=== PATIENT | female | born 1970 | race Caucasian/White ===

== ENCOUNTER 2018-08-28 12:50 | Emergency (ER) | payer BC, SELFPAY ==
[2018-08-28 13:02] VITALS: BP 126/71; PULSE 94; RESP 20; TEMP 36.9; O2SAT 99
[2018-08-28 13:39] LABS: Prothrombin Time 11.3 SECONDS (10.1-12.7)
[2018-08-28 13:42] LABS: PTT Partial Thromboplastin Tim 24 SECONDS (26.4-36.2)
[2018-08-28 13:43] LABS: Add Manual Diff / Slide Review NO; Basophils Absolute Auto 0 /uL (0-100); Basophils Percent Auto 0.5 % (0-2); Eosinophils Absolute Auto 300 /uL (0-450); Hematocrit 41.8 % (36-46); Hemoglobin 14.3 g/dL (12.0-16.0); Lymphocytes Absolute Auto 1500 /uL (1100-4500); Lymphocytes Percent Auto 18.3 % (25-40); Mean Corpuscular HGB Conc 34.2 % (30-36); Mean Corpuscular Hemoglobin 30.9 PG (26-34); Mean Corpuscular Volume 90.3 fL (80-100); Monocytes Absolute Auto 600 /uL (0-900); Monocytes Percent Auto 7.2 % (3-14); Neutrophils Absolute Auto 5700 /uL (1500-7000); Platelet Count 257 X10^3/uL (150-400); Red Blood Cell Count 4.63 X10^6/uL (4.0-5.2); Red Cell Distribution Width 12.9 % (11.6-14.8); White Blood Cell Count 8.2 X10^3/uL (4.5-11.0)
[2018-08-28 13:46] LABS: Alanine Aminotransferase 9 IU/L (9-52); Albumin 4.2 g/dL (3.5-5.0); Albumin Globulin Ratio 1.2 (1.0-2.8); Alkaline Phosphatase 84 U/L (38-126); Aspartate Aminotransferase 17 IU/L (14-36); BUN Creatinine Ratio 25.7 (6-22); Bilirubin Total 0.6 mg/dL (0.2-1.3); Blood Urea Nitrogen 18 mg/dL (7-17); Calcium 9.8 mg/dL (8.4-10.2); Carbon Dioxide 24 mmol/L (22-32); Chloride 108 mmol/L (98-107); Estimated Glomerular Filt Rate > 60.0 mL/min (>60); Globulin 3.5 g/dL (1.7-4.1); Glucose 83 mg/dL (70-100); HEMOLYSIS < 15 (0-50); Lipase 51 U/L (23-300); Potassium 4.5 mmol/L (3.4-5.1); Sodium 141 mmol/L (137-145); Total Protein 7.7 g/dL (6.3-8.2)
[2018-08-28 13:56] LABS: RBC Urine None Seen (0-5/HPF)
[2018-08-28 14:20] LABS: Bacteria Urine Moderate (10-30); Culture Indicated Urine Cult Not Indicated; Hyaline Casts Urine 0-1/LPF; Mucus Urine 1+ (Negative); Squamous Epithelial Cell Urine 5-10 /HPF (0-5/HPF); WBC Urine 1-5/HPF (0-5/HPF)
--- NOTE | 2018-08-28 15:57 | ED_ITS ---
HPI - Abdominal Pain <Jahaira Langford PA-C - Last Filed: 08/28/18 19:17> General Chief Complaint: Abdominal Pain Stated Complaint: ABD PAIN LEFT SIDE Time Seen by Provider: 08/28/18 15:55 Source: patient Mode of arrival: ambulatory Limitations: no limitations History of Present Illness HPI narrative: This 47-year-old female comes in due to persistent left pelvis area pain. She states that this started 1 week ago, with brief stabbing sensations in the left side of her pelvis. She states on Monday, this was severe and constant to the point that she was in the position crying. She states that the next day it was not much better but she was able to move and function normally. She states that pain is actually somewhat more tolerable in the last 2 days, but still bad enough that she thought she needed to be evaluated since not resolving. She states that she has had bloating and decreased appetite with this, no nausea or vomiting. She is belching and passing flatus. She states pain is constant without exacerbating or alleviating features nor any radiation. She denies any urinary symptoms or hematuria. She states that she has had watery diarrhea without blood a few times daily that started a couple of days prior to this and has not gotten worse. She has not had any fever. She denies any chest pain or dyspnea. She has not taken any recent antibiotics. She has taken ibuprofen for pain which helps somewhat. She states she has had frequent kidney stones but not feel at all like a stone. She also states that she has a history of complex ovarian cysts, 2 on the right and 1 on the left but these are not usually painful. 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 She states this is atypical pain for her, no recent trauma, no travel or known exposures Related Data Home Medications Medication Instructions Recorded Confirmed ibuprofen 1 dose PO PRN PRN #0 12/31/09 08/28/18 albuterol sulfate 1 inh INHALATION PRN PRN 08/28/18 08/28/18 Allergies Allergy/AdvReac Type Severity Reaction Status Date / Time PENCILLIN Allergy Unknown Uncoded 08/02/17 13:05 Review of Systems <Jahaira Langford PA-C - Last Filed: 08/28/18 19:17> Review of Systems ROS Unobtainable: All systems reviewed & are unremarkable except as noted in HPI and below PFSH <Jahaira Langford PA-C - Last Filed: 08/28/18 19:17> Medical History Status post tubal ligation (Resolved) Kidney stones (Resolved) Asthma (Chronic) Knee osteoarthritis (Chronic) Ovarian cyst (Chronic) Surgical History Status post cholecystectomy (Resolved) Status post arthroscopic knee surgery (Resolved) Status post (Resolved) Social History Smoking Status: Never smoker Social History Smoking Status: Never smoker Exam <Jahaira Langford PA-C - Last Filed: 08/28/18 19:17> Initial Vital Signs Initial Vital Signs: Vital Signs Temperature 98.4 F 08/28/18 13:02 Pulse Rate 94 H 08/28/18 13:02 Respiratory Rate 20 08/28/18 13:02 Blood Pressure 126/71 08/28/18 13:02 Pulse Oximetry 99 08/28/18 13:02 GENERAL APPEARANCE: Patient sitting comfortably, in no distress. HEENT: PERRL, EOMI, no scleral icterus NECK: Supple LUNGS: Clear to auscultation bilaterally. HEART: Rate and rhythm regular, normal S1 and S2, no S3 or S4. ABDOMEN: Soft, nondistended, bowel sounds present x 4 quadrants, no masses palpable, no hepatosplenomegaly. tender over the left upper quadrant without guarding or rebound. more tenderness over the left lower quadrant, left and central pelvis. She guards the central suprapubic area. No rebound. no right- sided tenderness to palpation, no CVAT EXTREMITIES: No edema, no cyanosis DERMATOLOGIC: No jaundice or exanthem NEUROLOGIC: Alert and oriented with normal speech and coordination <Jeffry Carroll DO - Last Filed: 08/28/18 19:18> Initial Vital Signs Initial Vital Signs: Vital Signs Temperature 98.4 F 08/28/18 13:02 Pulse Rate 94 H 08/28/18 13:02 Respiratory Rate 20 08/28/18 13:02 Blood Pressure 126/71 08/28/18 13:02 Pulse Oximetry 99 08/28/18 13:02 Course <Jahaira Langford PA-C - Last Filed: 08/28/18 19:17> Additional Information: The patient is feeling somewhat improved at the time discharge. Pain is not resolved. She does not feel like she wants or needs additional pain medication and wants to continue rnnd-olc-sethxac ibuprofen. She was given a copy of her ultrasound disc and will follow up with her OBGYN this week. Agreed to return if acutely worsening symptoms or new symptoms such as fever or vomiting. Orders Ordered: ED Orders 08/28/18 13:20 Complete Blood Count AUTO DIFF Stat Comprehensive Metabolic Panel Stat Lipase Stat Partial Thromboplastin Time Stat Prothrombin Time INR Stat 08/28/18 13:48 Urine Microscopic Stat 08/28/18 16:13 CT abdomen pelvis w con Stat Discontinued Medications Sodium Chloride (Normal Saline 0.9%) 1,000 mls @ 1,000 mls/hr IV BOLUS ONE Stop: 08/28/18 17:12 Last Infusion: 08/28/18 18:23 Dose: 0 mls/hr Admin: 08/28/18 16:29 Dose: 1,000 mls/hr Ketorolac Tromethamine (Toradol) 30 mg IV NOW ONE Stop: 08/28/18 16:14 Last Admin: 08/28/18 16:29 Dose: 30 mg Vital Signs - 8 hr 08/28/18 13:02 08/28/18 18:00 Temperature 98.4 F Pulse Rate 94 H 79 Respiratory Rate 20 Blood Pressure 126/71 Blood Pressure [Left Arm] 122/70 Pulse Oximetry 99 92 <Jeffry Carroll DO - Last Filed: 08/28/18 19:18> Orders Ordered: ED Orders 08/28/18 13:20 Complete Blood Count AUTO DIFF Stat Comprehensive Metabolic Panel Stat Lipase Stat Partial Thromboplastin Time Stat Prothrombin Time INR Stat 08/28/18 13:48 Urine Microscopic Stat 08/28/18 16:13 CT abdomen pelvis w con Stat Discontinued Medications Sodium Chloride (Normal Saline 0.9%) 1,000 mls @ 1,000 mls/hr IV BOLUS ONE Stop: 08/28/18 17:12 Last Infusion: 08/28/18 18:23 Dose: 0 mls/hr Admin: 08/28/18 16:29 Dose: 1,000 mls/hr Ketorolac Tromethamine (Toradol) 30 mg IV NOW ONE Stop: 08/28/18 16:14 Last Admin: 08/28/18 16:29 Dose: 30 mg Vital Signs - 8 hr 08/28/18 13:02 08/28/18 18:00 Temperature 98.4 F Pulse Rate 94 H 79 Respiratory Rate 20 Blood Pressure 126/71 Blood Pressure [Left Arm] 122/70 Pulse Oximetry 99 92 MDM - Abdominal Pain <Jahaira Langford PA-C - Last Filed: 08/28/18 19:17> Lab Data Attestation: I reviewed the patient's lab results. Result diagrams: 08/28/18 13:20 08/28/18 13:20 Lab Results 08/28/18 08/28/18 08/28/18 Range/Units 13:20 13:20 13:20 WBC 8.2 (4.5-11.0) X10^3/uL RBC 4.63 (4.0-5.2) X10^6/uL Hgb 14.3 (12.0-16.0) g/dL Hct 41.8 (36-46) % MCV 90.3 (80-100) fL MCH 30.9 (26-34) PG MCHC 34.2 (30-36) % RDW 12.9 (11.6-14.8) % Plt Count 257 (150-400) X10^3/uL Neut % (Auto) 70.0 (50-75) % Lymph % (Auto) 18.3 L (25-40) % Rooks % (Auto) 7.2 (3-14) % Eos % (Auto) 4.0 (2-4) % Baso % (Auto) 0.5 (0-2) % Neut # (Auto) 5700 (8293-7724) /uL Lymph # (Auto) 1500 (8040-8551) /uL Rooks # (Auto) 600 (0-900) /uL Eos # (Auto) 300 (0-450) /uL Baso # (Auto) 0 (0-100) /uL PT 11.3 (10.1-12.7) SECONDS INR 1.0 (0.9-1.3) APTT 24 L (26.4-36.2) SECONDS Sodium 141 (137-145) mmol/L Potassium 4.5 (3.4-5.1) mmol/L Chloride 108 H (98-107) mmol/L Carbon Dioxide 24 (22-32) mmol/L BUN 18 H (7-17) mg/dL Creatinine 0.70 (0.52-1.04) mg/dL Estimated GFR > 60.0 (>60) mL/min BUN/Creatinine Ratio 25.7 H (6-22) Glucose 83 (70-100) mg/dL Calcium 9.8 (8.4-10.2) mg/dL Total Bilirubin 0.6 (0.2-1.3) mg/dL AST 17 (14-36) IU/L ALT 9 (9-52) IU/L Alkaline Phosphatase 84 (38-126) U/L Total Protein 7.7 (6.3-8.2) g/dL Albumin 4.2 (3.5-5.0) g/dL Globulin 3.5 (1.7-4.1) g/dL Albumin/Globulin Ratio 1.2 (1.0-2.8) Lipase 51 (23-300) U/L Urine RBC (0-5/HPF) Urine WBC (0-5/HPF) Ur Squamous Epith Cells (0-5/HPF) Urine Bacteria (None) Hyaline Casts (None) Urine Mucus (Negative) Ur Culture Indicated? 08/28/18 Range/Units 13:48 WBC (4.5-11.0) X10^3/uL RBC (4.0-5.2) X10^6/uL Hgb (12.0-16.0) g/dL Hct (36-46) % MCV (80-100) fL MCH (26-34) PG MCHC (30-36) % RDW (11.6-14.8) % Plt Count (150-400) X10^3/uL Neut % (Auto) (50-75) % Lymph % (Auto) (25-40) % Rooks % (Auto) (3-14) % Eos % (Auto) (2-4) % Baso % (Auto) (0-2) % Neut # (Auto) (1739-8538) /uL Lymph # (Auto) (4360-4644) /uL Rooks # (Auto) (0-900) /uL Eos # (Auto) (0-450) /uL Baso # (Auto) (0-100) /uL PT (10.1-12.7) SECONDS INR (0.9-1.3) APTT (26.4-36.2) SECONDS Sodium (137-145) mmol/L Potassium (3.4-5.1) mmol/L Chloride (98-107) mmol/L Carbon Dioxide (22-32) mmol/L BUN (7-17) mg/dL Creatinine (0.52-1.04) mg/dL Estimated GFR (>60) mL/min BUN/Creatinine Ratio (6-22) Glucose (70-100) mg/dL Calcium (8.4-10.2) mg/dL Total Bilirubin (0.2-1.3) mg/dL AST (14-36) IU/L ALT (9-52) IU/L Alkaline Phosphatase (38-126) U/L Total Protein (6.3-8.2) g/dL Albumin (3.5-5.0) g/dL Globulin (1.7-4.1) g/dL Albumin/Globulin Ratio (1.0-2.8) Lipase (23-300) U/L Urine RBC None seen (0-5/HPF) Urine WBC 1-5/hpf (0-5/HPF) Ur Squamous Epith Cells 5-10 /hpf H (0-5/HPF) Urine Bacteria Moderate (10-30) H (None) Hyaline Casts 0-1/lpf (None) Urine Mucus 1+ H (Negative) Ur Culture Indicated? Cult not indicated Point of care testing: Point of Care Testing Test Results Negative Urine Dip Bedside Urine Glucose Negative Bedside Urine Bilirubin + 1 Bedside Urine Ketone - Negative Urine Specific [place] 1.030 Bedside Urine Occult Blood - Negative Bedside Urine pH 5.5 Bedside Urine Protein - Negative Bedside Urine Urobilinogen - Negative Bedside Urine Nitrite - Negative Bedside Urine Leukocytes + 70 Esterase Imaging Data US - abdomen: Radiologist's impression: [address] [address] [address] Scan Report Signed Patient: Aggie Tavarez LMR#: [id number] : 1970Acct:[id number] Age/Sex: 47 / FDate of Service: 08/28/18 Loc: ED Accession Number: [id number] Procedure: CT abdomen pelvis w con Ordering Provider: Jahaira Langford P.A-C PROCEDURE: CT ABDOMEN PELVIS W CON INDICATIONS: R. side pain, increased R. pelvis but also R. UQ TECHNIQUE: After the administration of intravenous contrast, 5 mm thick sections acquired from the diaphragm to the symphysis. 5 mm coronal and sagittal reformats were acquired. For radiation dose reduction, the following was used: automated exposure control, adjustment of mA and/or kV according to patient size. COMPARISON: None. FINDINGS: Image quality: Excellent. ABDOMEN: Lung bases: Lung bases are clear. Heart size is normal. Solid organs: Liver is normal in size and enhancement. Gallbladder is unremarkable. Biliary system is non dilated. Pancreas enhances normally. Spleen is normal in size and enhancement. No adrenal nodules. Kidneys demonstrate normal size and enhancement, without hydronephrosis. Peritoneum and bowel: Bowel loops demonstrate normal wall thickness and caliber. The appendix is thin walled and gas filled. An appendicolith is present at the distal aspect of the nondilated appendix. There are scattered sigmoid diverticula. No evidence for diverticulitis. No free fluid or air. Nodes and vessels: No retroperitoneal or mesenteric adenopathy by size criteria. Aorta and inferior vena cava are normal in size. Miscellaneous: No ventral hernias. PELVIS: Genitourinary: Bladder wall thickness is normal. There is a low density 3.2 cm right ovarian cyst. The uterus is grossly unremarkable. There is a crenulated- appearing left ovarian cyst which may represent a recently ruptured cyst (series 2, image 70). Miscellaneous: No inguinal hernias or adenopathy. Bones: No suspicious bony lesions. Fixation hardware is noted at the right iliac to prior trauma. No vertebral body compression fractures. IMPRESSION: 1. No acute intra-abdominal findings. Normal appendix with appendicolith at the tip. 2. Crenulated appearing left ovarian cyst which may represent a recent ruptured ovarian follicle. Please correlate clinically, it is unclear whether this may correspond with the patient's elbow pain. Dictated by: Ami Alvarez M.D. on 08/28/2018 at 17:05 Approved by: Ami Alvarez M.D. on 08/28/2018 at 17:09 <Jeffry Lanker, DO - Last Filed: 08/28/18 19:18> Lab Data Lab Results 08/28/18 08/28/18 08/28/18 Range/Units 13:20 13:20 13:20 WBC 8.2 (4.5-11.0) X10^3/uL RBC 4.63 (4.0-5.2) X10^6/uL Hgb 14.3 (12.0-16.0) g/dL Hct 41.8 (36-46) % MCV 90.3 (80-100) fL MCH 30.9 (26-34) PG MCHC 34.2 (30-36) % RDW 12.9 (11.6-14.8) % Plt Count 257 (150-400) X10^3/uL Neut % (Auto) 70.0 (50-75) % Lymph % (Auto) 18.3 L (25-40) % Rooks % (Auto) 7.2 (3-14) % Eos % (Auto) 4.0 (2-4) % Baso % (Auto) 0.5 (0-2) % Neut # (Auto) 5700 (9780-8153) /uL Lymph # (Auto) 1500 (3060-8000) /uL Rooks # (Auto) 600 (0-900) /uL Eos # (Auto) 300 (0-450) /uL Baso # (Auto) 0 (0-100) /uL PT 11.3 (10.1-12.7) SECONDS INR 1.0 (0.9-1.3) APTT 24 L (26.4-36.2) SECONDS Sodium 141 (137-145) mmol/L Potassium 4.5 (3.4-5.1) mmol/L Chloride 108 H (98-107) mmol/L Carbon Dioxide 24 (22-32) mmol/L BUN 18 H (7-17) mg/dL Creatinine 0.70 (0.52-1.04) mg/dL Estimated GFR > 60.0 (>60) mL/min BUN/Creatinine Ratio 25.7 H (6-22) Glucose 83 (70-100) mg/dL Calcium 9.8 (8.4-10.2) mg/dL Total Bilirubin 0.6 (0.2-1.3) mg/dL AST 17 (14-36) IU/L ALT 9 (9-52) IU/L Alkaline Phosphatase 84 (38-126) U/L Total Protein 7.7 (6.3-8.2) g/dL Albumin 4.2 (3.5-5.0) g/dL Globulin 3.5 (1.7-4.1) g/dL Albumin/Globulin Ratio 1.2 (1.0-2.8) Lipase 51 (23-300) U/L Urine RBC (0-5/HPF) Urine WBC (0-5/HPF) Ur Squamous Epith Cells (0-5/HPF) Urine Bacteria (None) Hyaline Casts (None) Urine Mucus (Negative) Ur Culture Indicated? 08/28/18 Range/Units 13:48 WBC (4.5-11.0) X10^3/uL RBC (4.0-5.2) X10^6/uL Hgb (12.0-16.0) g/dL Hct (36-46) % MCV (80-100) fL MCH (26-34) PG MCHC (30-36) % RDW (11.6-14.8) % Plt Count (150-400) X10^3/uL Neut % (Auto) (50-75) % Lymph % (Auto) (25-40) % Rooks % (Auto) (3-14) % Eos % (Auto) (2-4) % Baso % (Auto) (0-2) % Neut # (Auto) (2510-6886) /uL Lymph # (Auto) (9200-5291) /uL Rooks # (Auto) (0-900) /uL Eos # (Auto) (0-450) /uL Baso # (Auto) (0-100) /uL PT (10.1-12.7) SECONDS INR (0.9-1.3) APTT (26.4-36.2) SECONDS Sodium (137-145) mmol/L Potassium (3.4-5.1) mmol/L Chloride (98-107) mmol/L Carbon Dioxide (22-32) mmol/L BUN (7-17) mg/dL Creatinine (0.52-1.04) mg/dL Estimated GFR (>60) mL/min BUN/Creatinine Ratio (6-22) Glucose (70-100) mg/dL Calcium (8.4-10.2) mg/dL Total Bilirubin (0.2-1.3) mg/dL AST (14-36) IU/L ALT (9-52) IU/L Alkaline Phosphatase (38-126) U/L Total Protein (6.3-8.2) g/dL Albumin (3.5-5.0) g/dL Globulin (1.7-4.1) g/dL Albumin/Globulin Ratio (1.0-2.8) Lipase (23-300) U/L Urine RBC None seen (0-5/HPF) Urine WBC 1-5/hpf (0-5/HPF) Ur Squamous Epith Cells 5-10 /hpf H (0-5/HPF) Urine Bacteria Moderate (10-30) H (None) Hyaline Casts 0-1/lpf (None) Urine Mucus 1+ H (Negative) Ur Culture Indicated? Cult not indicated Point of care testing: Point of Care Testing Test Results Negative Urine Dip Bedside Urine Glucose Negative Bedside Urine Bilirubin + 1 Bedside Urine Ketone - Negative Urine Specific [place] 1.030 Bedside Urine Occult Blood - Negative Bedside Urine pH 5.5 Bedside Urine Protein - Negative Bedside Urine Urobilinogen - Negative Bedside Urine Nitrite - Negative Bedside Urine Leukocytes + 70 Esterase Discharge Plan Departure Patient Disposition: Home Clinical Impression: Left sided abdominal pain Ovarian cyst Qualifiers: Laterality: bilateral Qualified Code(s): N83.201 - Unspecified ovarian cyst, right side Discharge Date/Time: 08/28/18 18:23 Interventions: ED Discharge Assessment Last Done: 08/28/18 18:23 Instructions: DI for Abdominal Pain-Adult Activity Restrictions/Additional Instructions: On your lab testing today, there was no clear cause for your pain. your scan did show ovarian cysts on both sides, however the 1 on the left was more unusual in appearance and looks like it may have ruptured a or be rupturing, which may explain the change in your pain. Please return if you have any acutely worsening symptoms as we talked about, or if you have new symptoms such as vomiting or fever. 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 She may want to repeat the ultrasound. Please continue ibuprofen for pain 800 mg every 8 hours (the injection we gave you here may last through the evening). You can add Tylenol in addition to that if needed. Prescriptions: No Action ibuprofen 200 mg Tablet 1 dose PO PRN PRN (Reason: pain) Qty: 0 RF: 0 albuterol sulfate 90 mcg/actuation Aerosol Powdr Breath Activated 1 inh INHALATION PRN PRN (Reason: Shortness Of Breath) RF: 0 Referrals: [facility], [facility] [Other] Sneha Ortega DO [Non-Staff] - <Jeffry Carroll DO - Last Filed: 08/28/18 19:18> Cosign ED Attending Peggyature Attestation: I was available for consultation during this patient's emergency department encounter
--- NOTE | 2018-08-28 16:13 | DI.CT.S_ITS ---
PROCEDURE: CT ABDOMEN PELVIS W CON INDICATIONS: R. side pain, increased R. pelvis but also R. UQ TECHNIQUE: After the administration of intravenous contrast, 5 mm thick sections acquired from the diaphragm to the symphysis. 5 mm coronal and sagittal reformats were acquired. For radiation dose reduction, the following was used: automated exposure control, adjustment of mA and/or kV according to patient size. COMPARISON: None. FINDINGS: Image quality: Excellent. ABDOMEN: Lung bases: Lung bases are clear. Heart size is normal. Solid organs: Liver is normal in size and enhancement. Gallbladder is unremarkable. Biliary system is non dilated. Pancreas enhances normally. Spleen is normal in size and enhancement. No adrenal nodules. Kidneys demonstrate normal size and enhancement, without hydronephrosis. Peritoneum and bowel: Bowel loops demonstrate normal wall thickness and caliber. The appendix is thin walled and gas filled. An appendicolith is present at the distal aspect of the nondilated appendix. There are scattered sigmoid diverticula. No evidence for diverticulitis. No free fluid or air. Nodes and vessels: No retroperitoneal or mesenteric adenopathy by size criteria. Aorta and inferior vena cava are normal in size. Miscellaneous: No ventral hernias. PELVIS: Genitourinary: Bladder wall thickness is normal. There is a low density 3.2 cm right ovarian cyst. The uterus is grossly unremarkable. There is a crenulated-appearing left ovarian cyst which may represent a recently ruptured cyst (series 2, image 70). Miscellaneous: No inguinal hernias or adenopathy. Bones: No suspicious bony lesions. Fixation hardware is noted at the right iliac to prior trauma. No vertebral body compression fractures. IMPRESSION: 1. No acute intra-abdominal findings. Normal appendix with appendicolith at the tip. 2. Crenulated appearing left ovarian cyst which may represent a recent ruptured ovarian follicle. Please correlate clinically, it is unclear whether this may correspond with the patient's elbow pain. Dictated by: Ami Alvarez M.D. on 08/28/2018 at 17:05 Approved by: Ami Alvarez M.D. on 08/28/2018 at 17:09
[2018-08-28] MEDS: SODIUM CHLORIDE 0.9% 1,000 ML 1000 ML IV (16:29)
[2018-08-28] MEDS: KETOROLAC 60 MG/2 ML VIAL 30 MG IV (16:29)
[2018-08-28 18:00] VITALS: BP 122/70; PULSE 79; O2SAT 92
== END 2018-08-28 18:23 | disposition home or self-care (01) ==
PROVIDERS: Emergency Medicine; Emergency Provider Internal Medicine
DX: N83.201 Unspecified ovarian cyst, right side (principal); R10.11 Right upper quadrant pain
CPT/HCPCS: 36415; 74177; 80053; 81003; 81015; 81025; 83690; 85025; 85610; 85730; 96361; 96374; 99283; 99284; J1885; Q9967

== ENCOUNTER 2019-02-06 17:15 | Observation (INO) | payer BC, SELFPAY ==
[2019-02-06 17:17] VITALS: BP 144/74; PULSE 106; RESP 20; TEMP 36.4; O2SAT 99
--- NOTE | 2019-02-06 17:24 | DI.US.S_ITS ---
PROCEDURE: US PERIPH VENOUS LOW EXTREM LT INDICATIONS: LLE PAIN/SWELLING, POSTOP TECHNIQUE: Real-time imaging, as well as color and pulse Doppler interrogation, were performed of the lower extremity deep veins from the inguinal ligament to the popliteal fossa. COMPARISON: None. FINDINGS: There is filling defect within mid to distal left superficial femoral vein and popliteal vein with absence of flow. Poor compressibility is also noted. The common femoral, and proximal femoral veins are normally compressible, and free of intraluminal thrombus. Color and pulse Doppler demonstrate normal phasic intraluminal flow. There is normal augmentation response to distal compression maneuver. IMPRESSION: 1. Finding is suggestive of occlusive venous thrombosis involving mid to distal left superficial femoral vein and popliteal vein. Dictated by: Dony Stapleton M.D. on 02/06/2019 at 18:23 Approved by: Dony Stapleton M.D. on 02/06/2019 at 18:24
--- NOTE | 2019-02-06 17:25 | DI.RAD.S_ITS ---
PROCEDURE: XR CHEST 2V INDICATIONS: shortness of breath TECHNIQUE: 2 views of the chest were acquired. COMPARISON: None. FINDINGS: Surgical changes and devices: None. Lungs and pleura: Lungs are clear. No pleural effusions or pneumothorax. Mediastinum: Mediastinal contours are normal. Heart size is normal. Bones and chest wall: No suspicious bony abnormalities. Soft tissues appear unremarkable. IMPRESSION: No acute cardiopulmonary pathology. Dictated by: Dony Stapleton M.D. on 02/06/2019 at 18:05 Approved by: Dony Stapleton M.D. on 02/06/2019 at 18:05
[2019-02-06 18:11] LABS: Add Manual Diff / Slide Review NO; Basophils Absolute Auto 100 /uL (0-100); Basophils Percent Auto 0.7 % (0-2); Eosinophils Absolute Auto 700 /uL (0-450); Eosinophils Percent Auto 6.7 % (2-4); Hematocrit 38.7 % (36-46); Hemoglobin 13.4 g/dL (12.0-16.0); Lymphocytes Absolute Auto 1900 /uL (1100-4500); Lymphocytes Percent Auto 18.8 % (25-40); Mean Corpuscular HGB Conc 34.7 % (30-36); Mean Corpuscular Hemoglobin 31.1 PG (26-34); Mean Corpuscular Volume 89.6 fL (80-100); Monocytes Absolute Auto 900 /uL (0-900); Monocytes Percent Auto 9.1 % (3-14); Neutrophils Absolute Auto 6600 /uL (1500-7000); Neutrophils Percent Auto 64.7 % (50-75); Platelet Count 253 X10^3/uL (150-400); Red Blood Cell Count 4.32 X10^6/uL (4.0-5.2); Red Cell Distribution Width 13.4 % (11.6-14.8); White Blood Cell Count 10.2 X10^3/uL (4.5-11.0)
--- NOTE | 2019-02-06 18:15 | DI.CT.S_ITS ---
PROCEDURE: CT ANGIO CHEST PE PROTOCOL INDICATIONS: SOB, tachycardia, large DVT found today TECHNIQUE: After the administration of intravenous contrast, 2 mm thick sections acquired from the pulmonary apices to the posterior costophrenic angles. 3-dimensional maximum intensity projection (MIP) coronal and sagittal reformats were then acquired through the thorax. For radiation dose reduction, the following was used: automated exposure control, adjustment of mA and/or kV according to patient size. COMPARISON: None. FINDINGS: Image quality: Excellent. Pulmonary arteries: Pulmonary artery is mildly prominent in size and measures up to 2.4 cm in diameter. Filling defect is seen in the distal right main pulmonary artery extending into right upper and lower lobe pulmonary artery branches as well as right middle lobe pulmonary artery branches. There are also smaller filling defects seen in distal left main pulmonary artery extending to left upper and lower lobe pulmonary artery branches. The finding is consistent with bilateral pulmonary emboli. Lungs and pleura: Lungs are clear. No pleural effusions or pneumothorax. Central and peripheral airways are patent. Mediastinum: Heart size is normal, without pericardial effusion. No mediastinal or hilar adenopathy. Thoracic aorta is normal in caliber and enhancement. Esophagus is normal in caliber, without hiatal hernia. Bones and chest wall: No suspicious bony lesions. Ribs and thoracic spine appear intact throughout. Thyroid gland is within normal limits. No axillary or supraclavicular adenopathy. Abdomen: Visualized upper abdominal solid organs appear normal in the early arterial phase of enhancement. IMPRESSION: 1. Fairly extensive bilateral pulmonary emboli as described above. 2. No pleural effusion or pneumothorax. Airway is patent. 3. Cardiac size is normal, no pericardial effusion. No mediastinal or hilar lymphadenopathy. Dictated by: Dony Stapleton M.D. on 02/06/2019 at 19:06 Approved by: Dony Stapleton M.D. on 02/06/2019 at 19:14
[2019-02-06 18:21] LABS: Alanine Aminotransferase 17 IU/L (9-52); Albumin 4.1 g/dL (3.5-5.0); Albumin Globulin Ratio 1.1 (1.0-2.8); Alkaline Phosphatase 108 U/L (38-126); Aspartate Aminotransferase 23 IU/L (14-36); BUN Creatinine Ratio 31.4 (6-22); Bilirubin Total 0.6 mg/dL (0.2-1.3); Blood Urea Nitrogen 22 mg/dL (7-17); Calcium 9.6 mg/dL (8.4-10.2); Carbon Dioxide 25 mmol/L (22-32); Chloride 107 mmol/L (98-107); Estimated Glomerular Filt Rate > 60.0 mL/min (>60); Globulin 3.7 g/dL (1.7-4.1); Glucose 95 mg/dL (70-100); HEMOLYSIS < 15 (0-50); Potassium 4.5 mmol/L (3.4-5.1); Sodium 139 mmol/L (137-145); Total Protein 7.8 g/dL (6.3-8.2)
[2019-02-06] MEDS: HEPARIN 5,000 UNIT/ML VIAL 7500 UNIT IV (18:34)
[2019-02-06 18:45] LABS: D Dimer 2502 ng/mL (<230)
[2019-02-06 18:57] VITALS: BP 147/76; PULSE 98; RESP 16; O2SAT 99
--- NOTE | 2019-02-06 18:58 | PC.NURSE ---
Pt arrived to ED with complaints of LLE pain and swelling. redness, warm to touch in some areas and ache behind the knee. reports she had recent carpal tunnel surgery. also was exiting her truck and got her heel caught and having pain to the L calf. IV placed and labs sent. US in room and confirmed DVT. Pt given heparin per order. resting in bed and awaiting chest CT.
--- NOTE | 2019-02-06 18:58 | ED.SOB ---
HPI - SOB/Dyspnea General Chief Complaint: Shortness of Breath/Dyspnea Stated Complaint: difficulty breathing, red swollen calf Time Seen by Provider: 02/06/19 18:01 Source: patient Mode of arrival: Ambulatory Limitations: no limitations History of Present Illness HPI Narrative: 48F non smoker with history of kidney stones presents with multiple family members in the chief complaint of pain and swelling in her left calf and thigh over the past week or 2 and now some shortness of breath and unexplained fatigue. She denies any injury or history of the same. She denies any redness or fever. She has had 2 surgeries in the past couple months including bilateral carpal tunnel surgeries. She denies any recent travel, history of blood clot but is on exhaustion assessed urgent for the treatment of a right-sided ovarian cyst. She becomes increasingly short of breath with exertion and this improves with rest. She has had increased cough, thought it was due to her asthma it but does state on occasion there might be some blood tinge to it. MD Complaint: shortness of breath and cough Onset (ago): day(s) Severity: mild Known history of: asthma Associated symptoms: cough, wheezing and lower extremity pain Treatment prior to arrival: none Related Data Home oxygen amount: none Home Medications Medication Instructions Recorded Confirmed albuterol sulfate 1 inh INHALATION PRN PRN 08/28/18 02/06/19 fluticasone propionate 50 1 spray NASAL DAILY 09/24/18 02/06/19 mcg/actuation nasal spray,suspension ibuprofen 200 mg tablet 800 mg PO BID PRN #0 tab 12/28/18 02/06/19 Previous Rx's Medication Instructions Recorded levonorgestrel 0.15 mg-ethinyl 1 tab PO DAILY #91 each 12/28/18 estradiol 30 mcg tablets,3 mos pack(91) Allergies Allergy/AdvReac Type Severity Reaction Status Date / Time Penicillins Allergy Unknown Verified 02/06/19 18:17 Review of Systems Constitutional Constitutional: Denies chills, Denies fatigue, Denies fever(s), Denies frequent falls, Denies lethargy and Denies weakness Eyes Eyes: Denies change in vision, Denies eye discharge, Denies irritation and Denies loss of vision ENT Ears, Nose, Mouth, and Throat: Denies change in voice, Denies dizziness, Denies neck pain, Denies sore throat and Denies throat swelling Cardiovascular Cardiovascular: Denies chest pain, Denies irregular heart rhythm, Denies lightheadedness, Denies palpitations, Reports dyspnea, Reports dyspnea on exertion and Denies orthopnea Respiratory Respiratory: Reports cough, Reports dyspnea, Reports dyspnea on exertion and Reports wheezing Gastrointestinal Gastrointestinal: Denies abdominal pain, Denies change in bowel habits, Denies diarrhea, Denies nausea and Denies vomiting Genitourinary Genitourinary: Denies hematuria, Denies flank pain, Denies urinary incontinence and Denies urinary urgency Musculoskeletal Musculoskeletal: Denies back pain, Reports limited range of motion, Denies muscle weakness, Denies neck pain, Denies numbness and Denies tingling Integumentary/Breasts Skin/Breast: Denies pruritus, Denies erythema, Denies rash, Reports skin pain, Reports skin swelling and Denies wounds Neurologic Neurologic: Denies behavioral changes, Denies confusion, Denies dizziness, Denies frequent falls, Denies loss of vision, Denies numbness, Denies tingling and Denies weakness Psychiatric Psychiatric: Denies anxiety, Denies behavioral changes, Denies confusion, Denies depression, Denies homicidal ideation and Denies suicidal ideation Endocrine Endocrine: Denies fatigue, Denies flushing and Denies palpitations Hematologic/Lymphatic Hematologic/Lymphatic: Denies easy bruising Allergic/Immunologic Allergic/Immunologic: Denies urticaria, Denies throat swelling and Reports wheezing Patient History Medical History Asthma (Chronic) Kidney stones (Resolved) Knee osteoarthritis (Chronic) Ovarian cyst (Chronic) Surgical History Status post arthroscopic knee surgery (Resolved) Status post (Resolved) Status post cholecystectomy (Resolved) Status post tubal ligation (Resolved) Social History Smoking Status: Never smoker Social History household members: friend(s) and other Smoking Status: Never smoker alcohol intake: current alcohol intake frequency: 0-2 drinks per day Substance Use Type: does not use Exam Narrative Exam Narrative: GENERAL: [48] year old patient appears stated age. Well-nourished, well-developed patient, in mild distress. Anxious HEAD: Atraumatic. Normocephalic. EYES: Pupils equal round and reactive. Extraocular motions intact. No scleral icterus. No injection or drainage. ENT: Nose without bleeding, purulent drainage. Throat without erythema, tonsillar hypertrophy or exudate. Airway patent. NECK: Trachea midline. Non tender CARDIOVASCULAR: Slightly tachycardic but right rhythm without murmurs, gallops, or rubs. RESPIRATORY: Clear to auscultation. Breath sounds equal bilaterally. No wheezes, rales, or rhonchi. GASTROINTESTINAL: Abdomen soft, non-tender, nondistended. EXTREMITIES: Left lower extremity swollen and tender but not erythematous or warm BACK: Nontender without deformity or crepitance. No flank tenderness. NEURO: AOx3. SKIN: No rash or erythema of visible areas Initial Vital Signs Initial Vital Signs: Vital Signs Temperature 97.5 F L 02/06/19 17:17 Pulse Rate 106 H 02/06/19 17:17 Respiratory Rate 20 02/06/19 17:17 Blood Pressure 144/74 H 02/06/19 17:17 Pulse Oximetry 99 02/06/19 17:17 Course Orders Ordered: ED Orders 02/06/19 17:24 US periph venous low extrem lt Stat 02/06/19 17:25 Chest [XR chest 2V] Stat 02/06/19 18:00 B Type Natriuretic Peptide Stat Complete Blood Count AUTO DIFF Stat Comprehensive Metabolic Panel Stat D Dimer Stat Partial Thromboplastin Time Stat Prothrombin Time INR Stat Troponin & CK Cardiac Panel Stat 02/06/19 18:15 CT angio chest PE protocol Stat 02/06/19 19:15 EKG-12 Lead Stat Acetaminophen (Tylenol) 650 mg PO Q6HR PRN PRN Reason: As Needed for Fever/Mild Pain Al Hydrox/Mg Hydrox/Simethicone (Maalox Plus) 30 ml PO Q6HR PRN PRN Reason: Dyspepsia Bisacodyl (Dulcolax) 10 mg TN DAILY PRN PRN Reason: Constipation Calcium Carbonate (Tums) 1,000 mg PO Q4HR PRN PRN Reason: Dyspepsia Docusate Sodium (Colace) 100 mg PO BID PRN PRN Reason: Constipation Heparin Sodium/Dextrose (Heparin Drip) 25,000 unit in 500 mls @ 20 mls/hr IV CONT MILENA; Protocol Last Admin: 02/06/19 22:15 Dose: Not Given Documented by: ARNAUDRESS Sodium Chloride (Normal Saline 0.9%) 1,000 mls @ 75 mls/hr IV CONT MILENA Last Admin: 02/06/19 22:15 Dose: 75 mls/hr Documented by: ARNAUDRESS Ibuprofen (Advil) 600 mg PO Q6HR PRN PRN Reason: As Needed for Fever/Mild Pain Last Admin: 02/06/19 22:33 Dose: 600 mg Documented by: ARNAUDRESS Morphine Sulfate (Morphine) 2 mg IV Q4HR PRN PRN Reason: Pain, Moderate (4-6) Morphine Sulfate (Morphine) 4 mg IV Q4HR PRN PRN Reason: Pain, Severe (7-10) Naloxone HCl (Narcan) 0.2 mg IV Q2MIN PRN PRN Reason: Opiate Reversal Ondansetron HCl (Zofran) 4 mg IV Q8HR PRN PRN Reason: Nausea And Vomiting Discontinued Medications Heparin Sodium (Porcine) (Heparin) 7,500 unit IV NOW ONE Stop: 02/06/19 18:16 Last Admin: 02/06/19 18:34 Dose: 7,500 unit Documented by: PAYAM Heparin Sodium (Porcine) (Heparin) 2,000 unit IV NOW ONE Stop: 02/06/19 22:21 Last Admin: 02/06/19 22:29 Dose: 2,000 unit Documented by: RHETT Hydromorphone HCl (Dilaudid) 0.5 mg IV NOW ONE Stop: 02/06/19 19:30 Last Admin: 02/06/19 19:41 Dose: 0.5 mg Documented by: PYAAM Hydromorphone HCl (Dilaudid) 0.5 mg IV Q6H PRN PRN Reason: Pain, Moderate (4-6) Stop: 02/07/19 00:29 Last Admin: 02/07/19 00:18 Dose: 0.5 mg Documented by: BERTO Heparin Sodium/Dextrose (Heparin Drip) 25,000 unit in 500 mls @ 20 mls/hr IV CONT MILENA; Protocol Last Titration: 02/06/19 22:29 Dose: 1,100 units/hr, 22 mls/hr Documented by: Titration: 02/06/19 21:21 Dose: 1,000 units/hr, 20 mls/hr Documented by: Admin: 02/06/19 19:41 Dose: 1,000 units/hr, 20 mls/hr Documented by: PAYAM Vital Signs Vital signs: Vital Signs - 8 hr 02/06/19 18:57 02/06/19 19:30 02/06/19 20:27 Pulse Rate 98 H 91 H 104 H Respiratory Rate 16 20 18 Blood Pressure [Right Arm] 147/76 H 148/84 H 144/86 H Pulse Oximetry 99 96 99 MDM - SOB/Dyspnea Lab Data Result diagrams: 02/06/19 18:00 02/06/19 18:00 Labs: Lab Results 02/06/19 02/06/19 02/06/19 Range/Units 18:00 18:00 18:00 WBC 10.2 (4.5-11.0) X10^3/uL RBC 4.32 (4.0-5.2) X10^6/uL Hgb 13.4 (12.0-16.0) g/dL Hct 38.7 (36-46) % MCV 89.6 (80-100) fL MCH 31.1 (26-34) PG MCHC 34.7 (30-36) % RDW 13.4 (11.6-14.8) % Plt Count 253 (150-400) X10^3/uL Neut % (Auto) 64.7 (50-75) % Lymph % (Auto) 18.8 L (25-40) % Steele % (Auto) 9.1 (3-14) % Eos % (Auto) 6.7 H (2-4) % Baso % (Auto) 0.7 (0-2) % Neut # (Auto) 6600 (5971-7303) /uL Lymph # (Auto) 1900 (6255-9434) /uL Steele # (Auto) 900 (0-900) /uL Eos # (Auto) 700 H (0-450) /uL Baso # (Auto) 100 (0-100) /uL PT (10.1-12.7) SECONDS INR (0.9-1.3) APTT (26.4-36.2) SECONDS D-Dimer 2502 H (<230) ng/mL Sodium 139 (137-145) mmol/L Potassium 4.5 (3.4-5.1) mmol/L Chloride 107 (98-107) mmol/L Carbon Dioxide 25 (22-32) mmol/L BUN 22 H (7-17) mg/dL Creatinine 0.70 (0.52-1.04) mg/dL Estimated GFR > 60.0 (>60) mL/min BUN/Creatinine Ratio 31.4 H (6-22) Glucose 95 (70-100) mg/dL Calcium 9.6 (8.4-10.2) mg/dL Total Bilirubin 0.6 (0.2-1.3) mg/dL AST 23 (14-36) IU/L ALT 17 (9-52) IU/L Alkaline Phosphatase 108 (38-126) U/L Total Creatine Kinase (30-135) U/L CK-MB (CK-2) CK-MB (CK-2) Rel Index Troponin I (0.01-0.034) ng/mL B-Natriuretic Peptide (<100) Total Protein 7.8 (6.3-8.2) g/dL Albumin 4.1 (3.5-5.0) g/dL Globulin 3.7 (1.7-4.1) g/dL Albumin/Globulin Ratio 1.1 (1.0-2.8) 02/06/19 02/06/19 02/06/19 Range/Units 18:00 18:00 18:00 WBC (4.5-11.0) X10^3/uL RBC (4.0-5.2) X10^6/uL Hgb (12.0-16.0) g/dL Hct (36-46) % MCV (80-100) fL MCH (26-34) PG MCHC (30-36) % RDW (11.6-14.8) % Plt Count (150-400) X10^3/uL Neut % (Auto) (50-75) % Lymph % (Auto) (25-40) % Steele % (Auto) (3-14) % Eos % (Auto) (2-4) % Baso % (Auto) (0-2) % Neut # (Auto) (0371-0554) /uL Lymph # (Auto) (5977-0110) /uL Steele # (Auto) (0-900) /uL Eos # (Auto) (0-450) /uL Baso # (Auto) (0-100) /uL PT 10.5 (10.1-12.7) SECONDS INR 0.9 (0.9-1.3) APTT 25 L (26.4-36.2) SECONDS D-Dimer (<230) ng/mL Sodium (137-145) mmol/L Potassium (3.4-5.1) mmol/L Chloride (98-107) mmol/L Carbon Dioxide (22-32) mmol/L BUN (7-17) mg/dL Creatinine (0.52-1.04) mg/dL Estimated GFR (>60) mL/min BUN/Creatinine Ratio (6-22) Glucose (70-100) mg/dL Calcium (8.4-10.2) mg/dL Total Bilirubin (0.2-1.3) mg/dL AST (14-36) IU/L ALT (9-52) IU/L Alkaline Phosphatase (38-126) U/L Total Creatine Kinase 24 L (30-135) U/L CK-MB (CK-2) TNP CK-MB (CK-2) Rel Index TNP Troponin I < 0.012 (0.01-0.034) ng/mL B-Natriuretic Peptide < 100 (<100) Total Protein (6.3-8.2) g/dL Albumin (3.5-5.0) g/dL Globulin (1.7-4.1) g/dL Albumin/Globulin Ratio (1.0-2.8) Imaging Data Venous US: Radiologist's impression: Chart Viewer Diagnostics DATE TYPE STATUS AUTHOR 02/06/19 18:15 Dony Stapleton 02/06/19 17:25 Dony Stapleton 02/06/19 17:24 Dony Stapleton 08/28/18 16:13 Ami Alvarez Heather L 48, F1970 REG ER, Main ED R01 97.522kg Shortness of Breath/Dyspnea Search Chart No Data to Display ONSET Today 18:57 Aggie Tavarez 48 F [address] [address] Ultrasound Report Signed Patient: [place],Aggie LMR#: [id number] : 1970Acct:[id number] Age/Sex: 48 / FDate of Service: 02/06/19 Loc: ED Accession Number: [id number] Procedure: US periph venous low extrem lt Ordering Provider: Nohelia Martell MD PROCEDURE: US PERIPH VENOUS LOW EXTREM LT INDICATIONS: LLE PAIN/SWELLING, POSTOP TECHNIQUE: Real-time imaging, as well as color and pulse Doppler interrogation, were performed of the lower extremity deep veins from the inguinal ligament to the popliteal fossa. COMPARISON: None. FINDINGS: There is filling defect within mid to distal left superficial femoral vein and popliteal vein with absence of flow. Poor compressibility is also noted. The common femoral, and proximal femoral veins are normally compressible, and free of intraluminal thrombus. Color and pulse Doppler demonstrate normal phasic intraluminal flow. There is normal augmentation response to distal compression maneuver. IMPRESSION: 1. Finding is suggestive of occlusive venous thrombosis involving mid to distal left superficial femoral vein and popliteal vein. Dictated by: Dony Stapleton M.D. on 02/06/2019 at 18:23 Approved by: Dony Stapleton M.D. on 02/06/2019 at 18:24 Chest x-ray: Radiologist's impression: Aggie Tavarez L 48 F 1970 [place] [address] XRay Report Signed Patient: Aggie Tavarez LMR#: [id number] : 1970Acct:[id number] Age/Sex: 48 / FDate of Service: 02/06/19 Loc: ED Accession Number: [id number] Procedure: XR chest 2V Ordering Provider: Nohelia Martell MD PROCEDURE: XR CHEST 2V INDICATIONS: shortness of breath TECHNIQUE: 2 views of the chest were acquired. COMPARISON: None. FINDINGS: Surgical changes and devices: None. Lungs and pleura: Lungs are clear. No pleural effusions or pneumothorax. Mediastinum: Mediastinal contours are normal. Heart size is normal. Bones and chest wall: No suspicious bony abnormalities. Soft tissues appear unremarkable. IMPRESSION: No acute cardiopulmonary pathology. Dictated by: Dony Stapleton M.D. on 02/06/2019 at 18:05 Approved by: Dony Stapleton M.D. on 02/06/2019 at 18:05 CT scan - chest: Radiologist's impression: [address] [address] [address] Scan Report Signed Patient: Aggie Tavarez LMR#: [id number] : 1970Acct:[id number] Age/Sex: 48 / FDate of Service: 02/06/19 Loc: ED Accession Number: [id number] Procedure: CT angio chest PE protocol Ordering Provider: Mick Muse D.O. PROCEDURE: CT ANGIO CHEST PE PROTOCOL INDICATIONS: SOB, tachycardia, large DVT found today TECHNIQUE: After the administration of intravenous contrast, 2 mm thick sections acquired from the pulmonary apices to the posterior costophrenic angles. 3-dimensional maximum intensity projection (MIP) coronal and sagittal reformats were then acquired through the thorax. For radiation dose reduction, the following was used: automated exposure control, adjustment of mA and/or kV according to patient size. COMPARISON: None. FINDINGS: Image quality: Excellent. Pulmonary arteries: Pulmonary artery is mildly prominent in size and measures up to 2.4 cm in diameter. Filling defect is seen in the distal right main pulmonary artery extending into right upper and lower lobe pulmonary artery branches as well as right middle lobe pulmonary artery branches. There are also smaller filling defects seen in distal left main pulmonary artery extending to left upper and lower lobe pulmonary artery branches. The finding is consistent with bilateral pulmonary emboli. Lungs and pleura: Lungs are clear. No pleural effusions or pneumothorax. Central and peripheral airways are patent. Mediastinum: Heart size is normal, without pericardial effusion. No mediastinal or hilar adenopathy. Thoracic aorta is normal in caliber and enhancement. Esophagus is normal in caliber, without hiatal hernia. Bones and chest wall: No suspicious bony lesions. Ribs and thoracic spine appear intact throughout. Thyroid gland is within normal limits. No axillary or supraclavicular adenopathy. Abdomen: Visualized upper abdominal solid organs appear normal in the early arterial phase of enhancement. IMPRESSION: 1. Fairly extensive bilateral pulmonary emboli as described above. 2. No pleural effusion or pneumothorax. Airway is patent. 3. Cardiac size is normal, no pericardial effusion. No mediastinal or hilar lymphadenopathy. Dictated by: Dony Stapleton M.D. on 02/06/2019 at 19:06 Approved by: Dony Stapleton M.D. on 02/06/2019 at 19:14 [facility] Narrative Medical decision making narrative: 48-year-old female with multiple risk factors presents with leg swelling, a confirmation of DVT and a CT scan demonstrating bilateral pulmonary emboli. She is a bit short of breath and has some chest pain but no evidence of right heart strain on imaging, EKG, or bio chemically. At no point has she had a systolic blood pressure less than 90. sPESI score is zero. Patient requires hospitalization for stablization and monitoring. No evidence that transfer is required. Patient and family understand the diagnosis, need for hospitalization. They had all their questions answered to their apparent satisfaction. Discharge Plan Departure Patient Disposition: Admitted As Inpatient Clinical Impression: Bilateral pulmonary embolism Discharge Date/Time: 02/06/19 21:38 Admit Date/Time: 02/06/19 20:42 Admit Provider: Mejia Granados
[2019-02-06 19:30] VITALS: BP 148/84; PULSE 91; RESP 20; O2SAT 96
[2019-02-06 19:40] LABS: INR 0.9 (0.9-1.3); Prothrombin Time 10.5 SECONDS (10.1-12.7)
[2019-02-06] MEDS: HYDROMORPHONE 0.5 MG INJ IV (19:41)
[2019-02-06] MEDS: HEPARIN DRIP 25,000 UNIT/500 ML IV.SOLN 20 UNIT IV (19:41)
--- NOTE | 2019-02-06 19:42 | PC.NURSE ---
Heparin bolus and gtt infusing per MAR. pt resting in bed in NAD. CT with B/L PE. pt advised no ambulation. given pain meds per MAR and appears more comfortable.
[2019-02-06 19:43] LABS: PTT Partial Thromboplastin Tim 25 SECONDS (26.4-36.2)
[2019-02-06 19:46] LABS: Creatine Kinase 24 U/L (30-135)
[2019-02-06 19:58] LABS: B Type Natriuretic Peptide < 100 (<100)
[2019-02-06 19:59] LABS: Troponin I < 0.012 ng/mL (0.01-0.034)
--- NOTE | 2019-02-06 20:19 | PC.NURSE ---
resting in bed. 2nd IV placed. made aware of plan of care to admit. tearful. family at side. heparin gtt infusing per order.
[2019-02-06 20:27] VITALS: BP 144/86; PULSE 104; RESP 18; O2SAT 99
[2019-02-06 21:00] VITALS: BP 136/93; PULSE 98; O2SAT 97
--- NOTE | 2019-02-06 21:35 | P.HP_ITS ---
History of Present Illness History of Present Illness Date Patient Seen: 02/06/19 Time Patient Seen: 20:58 Chief complaint: difficulty breathing, red swollen calf Narrative: Ms Aggie Tavarez is a 48-year-old female patient with history significant for asthma, ovarian cyst, kidney stones, osteoarthritis of the knees, carpal tunnel and ulnar nerve entrapment status post surgery for both who presents to the ER with left calf swelling with redness and shortness of breath. 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 Pain persisted and developing swelling and redness. Two days ago she developed an acute onset of shortness of breath with associated pleuritic chest pain she states she feels like there is a weight on her chest all the time with sharp pain with deep breath. She has had associated complaints of fatigue and cough. Patient leave this to be related to her history of asthma and was using her inhaler more frequently without benefit. Today she had more pain behind the left knee becoming painful to flex prompting her to present to the ER. The patient has risk factors for PE including hormone therapy for ovarian cyst and recent surgeries involving bilateral carpal tunnel surgery as well as bilateral ulnar nerve surgery at the elbow. She reports no recent fevers or chills, headaches or dizziness. She has pleuritic chest pain with exertional dyspnea and a positive cough. She denies abdominal pain, nausea vomiting. She reports no change in bowel or bladder habits. Upon arrival to the ER the patient is afebrile with temperature 97.5?, heart rate is 106, blood pressure 144/74, respirations are 20 saturating 99% on room air. The patient underwent is ultrasound of the left lower extremity was finds left lower extremity occlusive vein thrombosis of the superficial femoral and popliteal veins. A CT of the chest is obtained finding a mild prominence of the pulmonary artery at 2.4 cm, filling defect to the distal right main pulmonary artery extending into the right upper and middle lobes, smaller deficits in the left distal main PA. There is no evidence of right heart strain and heart size is normal. On laboratory analysis the patient's CK and troponin are both negative. Her white count is 10.2 with a hemoglobin of 13.4 and hematocrit 38.7 and platelets of 253. She has a baseline PT of 10.5 PTT of 25 and an INR of 0.9. She has a D-dimer positive at 2502. Her electrolytes are all within normal limits with a BUN of 22 and creatinine of 0.7 and a nonfasting glucose of 95. The patient was started on heparin with a bolus and infusion in the ER. The patient is admitted to the hospital for left lower extremity DVT with bilateral pulmonary emboli. Patient History Medical History Asthma (Chronic) Kidney stones (Resolved) Knee osteoarthritis (Chronic) Ovarian cyst (Chronic) Surgical History Status post arthroscopic knee surgery (Resolved) Status post (Resolved) Status post cholecystectomy (Resolved) Status post tubal ligation (Resolved) Social History household members: friend(s) and other Smoking Status: Never smoker alcohol intake: current Family & Social History Family History (Updated 02/07/19 @ 04:03 by CHATO Chappell) Father Stroke Mother No significant medical problems Grandfather Hypertension Tobacco & Substance use: Smoking Status Never smoker alcohol intake frequency 0-2 drinks per day Substance Use Type does not use Comment: The patient is single and has a significant other. She lives in a [facility] family home with a 79-year-old female roommate. Patient has a family history of her father having stroke and her mother with no significant medical problems. She has a grandfather with hypertension and has a half brother and half sister both in good health. She has 2 children both in good health. She has no family history of diabetes or cancer. 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 Smoking: The patient denies use of tobacco products. Alcohol: Patient consumes alcohol rarely. Substance use: The patient denies use of recreational pharmaceuticals, herbal or cannabis products. Advanced directives: The patient has no formal advanced directives. In direct conversations patient states her desire to be FULL CODE. She designates her friend Jennifer Scanlon ([phone]) to be her surrogate decision maker. Meds Home Medications and Allergies Home Medications Medication Instructions Recorded Confirmed Type albuterol sulfate 1 inh INHALATION PRN PRN 08/28/18 02/06/19 History fluticasone propionate 50 1 spray NASAL DAILY 09/24/18 02/06/19 History mcg/actuation nasal spray,suspension ibuprofen 200 mg tablet 800 mg PO BID PRN #0 tab 12/28/18 02/06/19 History levonorgestrel 0.15 mg-ethinyl 1 tab PO DAILY #91 each 12/28/18 02/06/19 Rx estradiol 30 mcg tablets,3 mos pack(91) Allergies Allergy/AdvReac Type Severity Reaction Status Date / Time Penicillins Allergy Unknown Verified 02/06/19 18:17 Review of Systems Review of Systems ROS Unobtainable: All systems reviewed & are unremarkable except as noted in HPI and below Exam Vital Signs (past 8 hours): - 02/06/19 17:17 02/06/19 18:57 02/06/19 19:30 Temperature 97.5 F L Pulse Rate 106 H 98 H 91 H Respiratory Rate 20 16 20 Blood Pressure 144/74 H Blood Pressure [Right Arm] 147/76 H 148/84 H Pulse Oximetry 99 99 96 02/06/19 20:27 02/06/19 21:00 Temperature Pulse Rate 104 H 98 H Respiratory Rate 18 Blood Pressure Blood Pressure [Right Arm] 144/86 H 136/93 H Pulse Oximetry 99 97 Oxygen Delivery Method Room Air Narrative Exam Narrative: GENERAL APPEARANCE: well developed, obese female with BMI 35.0 and mild discomfort with no acute distress. HEENT: Normocephalic, PERRLA, conjunctiva clear, EOMs intact without nystagmus, no sinus tenderness to percussion, no rhinorrhea, mucous membranes are moist and pink without lesions or exudate. NECK/THYROID: neck supple, no JVD, no carotid bruit, no thyromegaly, trachea midline. LYMPH NODES: no cervical or supraclavicular lymphadenopathy. SKIN: warm and dry, no suspicious lesions, no rashes. HEART: regular rate and rhythm, S1-S2, no murmur, no rubs or gallops, brisk capillary refill, no edema LUNGS: clear to auscultation bilaterally, no coarseness crackles or wheezing, no cough present on deep inspiration. CHEST: Chest pain on deep inspiration, symmetrical movement, no accessory muscle use, no pain to AP and lateral compression. ABDOMEN: Soft, no distention, no abdominal tenderness, no organomegaly, no flank tenderness, active bowel tones. BACK: Normal curvature, nontender to palpation, no CVA tenderness on percussion EXTREMITIES: Healing surgical incisions bilateral wrists, stitches remain left wrist, healing incisions bilateral medial elbow, moves all extremities, strength is 5/5 and symmetrical, swelling left calf, tender to palpation, positive bowel min, faint redness medial lateral anterior lower extremity. NEUROLOGIC: AAO x4, no focal neurologic deficits, sensation intact to light touch, hearing grossly normal to speech. PSYCH: alert, cognitive function intact, good eye contact, appropriate with stable behavior Objective Labs Result Diagrams: 02/06/19 18:00 02/06/19 18:00 Labs: Laboratory Results - last 24 hr 02/06/19 02/06/19 02/06/19 18:00 18:00 18:00 WBC 10.2 RBC 4.32 Hgb 13.4 Hct 38.7 MCV 89.6 MCH 31.1 MCHC 34.7 RDW 13.4 Plt Count 253 Neut % (Auto) 64.7 Lymph % (Auto) 18.8 L [place] % (Auto) 9.1 Eos % (Auto) 6.7 H Baso % (Auto) 0.7 Neut # (Auto) 6600 Lymph # (Auto) 1900 [place] # (Auto) 900 Eos # (Auto) 700 H Baso # (Auto) 100 PT INR APTT D-Dimer 2502 H Sodium 139 Potassium 4.5 Chloride 107 Carbon Dioxide 25 BUN 22 H Creatinine 0.70 Estimated GFR > 60.0 BUN/Creatinine Ratio 31.4 H Glucose 95 Calcium 9.6 Total Bilirubin 0.6 AST 23 ALT 17 Alkaline Phosphatase 108 Total Creatine Kinase CK-MB (CK-2) CK-MB (CK-2) Rel Index Troponin I B-Natriuretic Peptide Total Protein 7.8 Albumin 4.1 Globulin 3.7 Albumin/Globulin Ratio 1.1 02/06/19 02/06/19 02/06/19 18:00 18:00 18:00 WBC RBC Hgb Hct MCV MCH MCHC RDW Plt Count Neut % (Auto) Lymph % (Auto) [place] % (Auto) Eos % (Auto) Baso % (Auto) Neut # (Auto) Lymph # (Auto) [place] # (Auto) Eos # (Auto) Baso # (Auto) PT 10.5 INR 0.9 APTT 25 L D-Dimer Sodium Potassium Chloride Carbon Dioxide BUN Creatinine Estimated GFR BUN/Creatinine Ratio Glucose Calcium Total Bilirubin AST ALT Alkaline Phosphatase Total Creatine Kinase 24 L CK-MB (CK-2) TNP CK-MB (CK-2) Rel Index TNP Troponin I < 0.012 B-Natriuretic Peptide < 100 Total Protein Albumin Globulin Albumin/Globulin Ratio Assessment & Plan Assessment & Plan narrative: This is a 48-year-old patient who is found to have left lower extremity DVT and bilateral pulmonary emboli. No evidence of heart strain on imaging, negative troponins and no hypoxemia. 1. Left lower extremity DVT, acute, present on admission, active -onset of leg pain 2 weeks ago -swelling and pain left calf with areas of mild redness medial and lateral anterior left lower extremity. -patient with ultrasound confirmation of occlusive left popliteal and femoral superficial femoral veins. -patient is started on heparin with bolus and infusion, initiated non-cardiac heparin protocol. -will follow H&H and PTT per protocol. -will monitor for signs or symptoms of bleeding. 2. Bilateral pulmonary emboli, acute, present on admission, active -acute onset shortness of breath 2 days ago with associated pleuritic chest pain and cough. -CT angio finds mild prominence of the pulmonary artery at 2.4 cm, filling deficit distal right main pulmonary artery extending into the mid and upper lobes, smaller deficit left distal main pulmonary artery. Heart is reported as normal with no evidence right ventricular strain. -PESI score is 49 defined as very low risk. Patient mildly tachycardic at 100 to 110. -heparin infusion per protocol and monitoring as above. -chest pain has been managed with Dilaudid 0.5 mg IV as needed, patient with worsening chest pain on administration clearing after 5 minutes changed to morphine 2-4 mg IV every 4 hours as needed for pain. -ibuprofen 600 mg every 6 hours as needed for pain 3. Obesity, BMI 35.0, active -patient states he has had recent weight loss but gained back 30 lb since her surgeries. -dietary consult 4. Right ovarian cyst, chronic, stable -no current complaints of abdominal pain -patient has been on hormone therapy which was discontinued. DVT prophylaxis: Patient is presently on heparin infusion The patient is admitted to the hospital due to the severity of her symptoms, risk for complications and adverse events. The patient is admitted as ob servation with expected length of stay to be less than 2 midnights. Scores GCS Juni coma scale eye opening: Spontaneous Juni coma scale verbal response: Orientated [place] coma scale motor response: Obey commands [place] coma scale total score: 15
[2019-02-06 21:38] VITALS: BP 136/93; PULSE 98; RESP 16; O2SAT 98
[2019-02-06 21:46] VITALS: BMI 35.0
[2019-02-06 22:08] LABS: PTT Partial Thromboplastin Tim 48 SECONDS (26.4-36.2)
[2019-02-06] MEDS: SODIUM CHLORIDE 0.9% 1,000 ML 75 ML IV (22:15)
[2019-02-06] MEDS: HEPARIN 5,000 UNIT/ML VIAL 2000 UNIT IV (22:29)
[2019-02-06] MEDS: IBUPROFEN 600 MG TABLET PO (22:33)
--- NOTE | 2019-02-06 22:43 | PC.NURSE ---
Admit note - 2134 - Patient admitted to room 102. Brought over on stretcher by nursing staff. Able to walk with standby assist to bathroom and then to bed. Alert and oriented with pleasant affect. Brought over from ED on heparin gtt at 1000 units/hr. States chest pain/pressure is 8/10 after walking and left lower extremity pain is also 8/10. Left lower extremity has red, warm, swollen area. Physician aware of chest pain and pressure. Oriented to room and call light, call light within reach. 2230 - PTT noted to be 48. Gave 2000 unit bolus of heparin per protocol and heparin gtt adjusted to 1100 units/hr. Patient states chest pressure is much better at this time.
[2019-02-07] VITALS (10 sets, daily range): BP systolic 128–155; BP diastolic 72–92; PULSE 74–101; RESP 13–22; TEMP 36.3–37.2; O2SAT 94–99
[2019-02-07] MEDS: HYDROMORPHONE 0.5 MG INJ IV (00:18)
[2019-02-07] MEDS: MORPHINE 2 MG/ML INJ IV ×5 (02:24→22:39)
[2019-02-07] MEDS: ONDANSETRON 4 MG/2 ML INJ IV (02:32)
[2019-02-07 03:49] LABS: Add Manual Diff / Slide Review NO; Basophils Absolute Auto 100 /uL (0-100); Basophils Percent Auto 0.8 % (0-2); Eosinophils Absolute Auto 600 /uL (0-450); Eosinophils Percent Auto 8.3 % (2-4); Hemoglobin 12.1 g/dL (12.0-16.0); Lymphocytes Absolute Auto 2200 /uL (1100-4500); Lymphocytes Percent Auto 29.9 % (25-40); Mean Corpuscular HGB Conc 34.5 % (30-36); Mean Corpuscular Hemoglobin 30.9 PG (26-34); Mean Corpuscular Volume 89.6 fL (80-100); Monocytes Absolute Auto 700 /uL (0-900); Monocytes Percent Auto 9.6 % (3-14); Neutrophils Absolute Auto 3800 /uL (1500-7000); Neutrophils Percent Auto 51.4 % (50-75); Platelet Count 213 X10^3/uL (150-400); Red Blood Cell Count 3.91 X10^6/uL (4.0-5.2); White Blood Cell Count 7.3 X10^3/uL (4.5-11.0)
[2019-02-07 03:56] LABS: Blood Urea Nitrogen 18 mg/dL (7-17); Calcium 8.9 mg/dL (8.4-10.2); Carbon Dioxide 23 mmol/L (22-32); Chloride 108 mmol/L (98-107); Estimated Glomerular Filt Rate > 60.0 mL/min (>60); Glucose 100 mg/dL (70-100); HEMOLYSIS < 15 (0-50); PTT Partial Thromboplastin Tim 40 SECONDS (26.4-36.2); Potassium 4.2 mmol/L (3.4-5.1); Sodium 136 mmol/L (137-145)
[2019-02-07] MEDS: HEPARIN 5,000 UNIT/ML VIAL 5000 UNIT ×2 (04:00→11:06)
--- NOTE | 2019-02-07 06:45 | PC.NURSE ---
NOC Shift: AOx3, pleasant patient admitted this evening with left LE DVT, bilateral PE's. Currently on Heparin protocol. Last PTT @0330 40 5000 unit IVP bolus given and rate increased by 200units per protocol to 1300 U/hr next draw at 0930. Pt having intermittent chest heaviness, pain re: PE's mostly in mid sternum area, taking IVP morphine. Had earlier episode of sudden excruciating chest pain following IVP Diluadid reported to [facility] and med D/C'd. LLE calf reddened hot to touch, non palpable pulses in foot due to swelling bounding pulses audible w/doppler. Painful to ambulate and limping on leg, using bedside commode only bed alarm on for safety. Discussed with patient limitations and goals, pt understands. Floor care, tele status.
[2019-02-07 07:21] LABS: Troponin I < 0.012 ng/mL (0.01-0.034)
--- NOTE | 2019-02-07 09:15 | CM.DANOTE ---
DCP:Case received, EMR reviewed and met with patient. Introduced self and role. Was able to meet with patient in her room to obtain baseline history and activity level. DCP assessment/template, completed with information currently available. Patient is a 48 year old female who admitted yesterday evening to the care of the hospitalist team. Payer: confirmed: [facility]. Patient came to the hospital via private vehicle secondary to some difficulty breathing, as well as a swollen left calf. Patient holds diagnosis of DVT/Pulmonary Emboli. Met with patient in her room, and she mentioned that she has this history. Patient is independent at home, and works for the [employer]. She has a 79 year old room mate as well. Patient has history of asthma as well. At this time, she's on a heparin drip. She is pleasant, alert and oriented. Had been talking to a family member over the phone when this account planner met with her. P: DCP to continue to follow closely. Patient will continue with anticoagulation. Anticipate that she could be here for a couple of days before returning home when she is medically stable. Sveta Olivarez RN/Dowel Setting Machine Operator
[2019-02-07] MEDS: IBUPROFEN 600 MG TABLET PO ×2 (09:48→15:52)
[2019-02-07 10:35] LABS: PTT Partial Thromboplastin Tim 55 SECONDS (26.4-36.2)
--- NOTE | 2019-02-07 11:51 | DI.ECHO.S_ITS ---
[facility] +---------+ Hospital +---------+ : : [address] [place] : : : : [phone] : : : : Phone: [phone] Echocardiogram Report + + :Name: MIKE NELSON Study Date: 02/08/2019 Height: 65 in : :[facility] Weight: 211 lb : : Gender: Female BSA: 2.0 m2 : :: 1970 Age: 48 yrs BP: 136/72 mmHg: :Reason For Study: Pulmonary- Embolism : : Performed By: Dagmar Mae : :Referring: ADELINE VEGA : + + Interpretation Summary Normal left ventricle size with ejection fraction 55-60%. Borderline right ventricular enlargement with normal right ventricular systolic function. No valvular abnormality. Mild-moderate pulmonary hypertension. The right ventricular systolic pressure is estimated to be at least 41 mmHg based on an estimated right atrial pressure of 8 mm Hg. Procedure: A two-dimensional transthoracic echocardiogram with color flow and Doppler was performed. The study quality was technically adequate. There is no prior echocardiogram noted for this patient. The patient was in normal sinus rhythm during the exam. Left Ventricle: The left ventricle is normal in size. There is normal left ventricular wall thickness. The ejection fraction is estimated to be 55-60%. There are no focal wall motion abnormalities. Diastolic parameters suggest probable normal left ventricular diastolic function and normal filling pressures. Right Ventricle: Borderline right ventricular enlargement. The right ventricular systolic function is normal. Atria: The left atrial size is normal. Right atrial size is normal. The interatrial septum is intact with no evidence for an atrial septal defect. Mitral Valve: The mitral valve is normal in structure and function. There is trace mitral regurgitation. Aortic Valve: The aortic valve is trileaflet. The aortic valve opens well. No aortic regurgitation is present. Tricuspid Valve: The tricuspid valve is normal in structure and function. There is trace tricuspid regurgitation. The right ventricular systolic pressure is estimated to be at least 41 mmHg based on an estimated right atrial pressure of 8 mm Hg. There is mild-moderate pulmonary hypertension. Pulmonic Valve: The pulmonic valve is normal in structure and function. There is a trace or physiologic amount of pulmonic regurgitation. Great Vessels: The aortic root is normal size. The dimensions of the ascending aorta are normal. The aortic arch is normal in size. The IVC is dilated (diameter is greater than 2.1 cm) yet it collapses greater than 50% with a sniff. This suggests a right atrial pressure of 8 mm Hg. Pericardium/ Pleura There is no pericardial effusion. There is no pleural effusion. MMode/2D Measurements & Calculations LVIDd: 4.9 cm Ao root diam: 3.1 cm LVIDs: 3.7 cm Aortic Jxn: 2.5 cm FS: 23.1 % asc Aorta Diam: 3.1 cm IVSd: 0.87 cm Ao Arch Diam (Prox Trans): 2.9 cm LVPWd: 0.82 cm LV liz. diameter/BSA (cm/m^2): 2.4 LV sys. diameter/BSA (cm/m^2): 1.8 LA dimension: 3.6 cm RA long axis: 5.5 cm LA A2 area: 20.3 cm2 RA area: 18.4 cm2 LA A4 area: 23.0 cm2 RA vol: 51.8 ml LA length (vol): 5.8 cm RA : 25.6 ml/m2 LA vol: 68.5 ml IVC diam: 2.2 cm LA vol index: 33.9 ml/m2 RVDd major: 5.7 cm RVD1 (basal): 4.0 cm RVD2 (mid): 3.2 cm Doppler Measurements & Calculations Ao V2 max: 150.8 cm/sec MV E max maulik: 80.3 cm/sec Ao V2 mean: 96.5 cm/sec MV A max maulik: 101.4 cm/sec Ao max P.1 mmHg MV E/A: 0.79 Ao mean P.5 mmHg Med Peak E' Maulik: 7.2 cm/sec Ao V2 VTI: 30.0 cm E/E' med: 11.2 Lat Peak E' Maulik: 10.4 cm/sec E/E' lat: 7.7 E/e' average: 9.5 MV dec time: 0.15 sec MV P1/2t: 46.2 msec TR max maulik: 288.8 cm/sec MV P1/2t max maulik: 81.6 cm/sec TR max P.4 mmHg MVA(P1/2t): 4.8 cm2 PA V2 max: 104.4 cm/sec PA V2 mean: 70.1 cm/sec PA mean P.2 mmHg PA Accel Time: 0.10 sec Electronically signed by: Madyson Watts on Reading Physician:02/08/2019 12:12 PM
--- NOTE | 2019-02-07 12:46 | P.PN_ITS ---
Subjective Subjective Date Patient Seen: 02/07/19 Interval history: The patient is a 48-year-old female with a history of ovarian cyst, asthma, admitted to the hospital yesterday for pulmonary embolus and DVT. Patient does report chest heaviness upon awakening. She continues to feel short of breath. She also reports some calf pain which is persistent. Patient has been started on IV heparin without incident. Exam Vital Signs (past 8 hours): - 02/07/19 07:46 02/07/19 09:14 02/07/19 09:54 Temperature 99 F Pulse Rate 82 Respiratory Rate 17 16 Blood Pressure 129/79 142/81 H Pulse Oximetry 96 98 02/07/19 12:01 Temperature 98.6 F Pulse Rate 80 Respiratory Rate 16 Blood Pressure 128/73 Pulse Oximetry 95 Oxygen Delivery Method Room Air Narrative Exam Narrative: Pleasant female in no obvious distress Lungs: Clear to auscultation Cardiac exam: Regular rate and rhythm normal S1-S2 Abdomen: Soft nontender nondistended Extremities: Left lower extremity calf somewhat tender trace edema Objective Labs Result Diagrams: 02/07/19 03:40 02/07/19 03:40 Labs: Laboratory Results - last 24 hr 02/06/19 02/06/19 02/06/19 18:00 18:00 18:00 WBC 10.2 RBC 4.32 Hgb 13.4 Hct 38.7 MCV 89.6 MCH 31.1 MCHC 34.7 RDW 13.4 Plt Count 253 Neut % (Auto) 64.7 Lymph % (Auto) 18.8 L [place] % (Auto) 9.1 Eos % (Auto) 6.7 H Baso % (Auto) 0.7 Neut # (Auto) 6600 Lymph # (Auto) 1900 [place] # (Auto) 900 Eos # (Auto) 700 H Baso # (Auto) 100 PT INR APTT D-Dimer 2502 H Sodium 139 Potassium 4.5 Chloride 107 Carbon Dioxide 25 BUN 22 H Creatinine 0.70 Estimated GFR > 60.0 BUN/Creatinine Ratio 31.4 H Glucose 95 Calcium 9.6 Total Bilirubin 0.6 AST 23 ALT 17 Alkaline Phosphatase 108 Total Creatine Kinase CK-MB (CK-2) CK-MB (CK-2) Rel Index Troponin I B-Natriuretic Peptide Total Protein 7.8 Albumin 4.1 Globulin 3.7 Albumin/Globulin Ratio 1.1 Nasal Screen MRSA (PCR) 02/06/19 02/06/19 02/06/19 18:00 18:00 18:00 WBC RBC Hgb Hct MCV MCH MCHC RDW Plt Count Neut % (Auto) Lymph % (Auto) [place] % (Auto) Eos % (Auto) Baso % (Auto) Neut # (Auto) Lymph # (Auto) [place] # (Auto) Eos # (Auto) Baso # (Auto) PT 10.5 INR 0.9 APTT 25 L D-Dimer Sodium Potassium Chloride Carbon Dioxide BUN Creatinine Estimated GFR BUN/Creatinine Ratio Glucose Calcium Total Bilirubin AST ALT Alkaline Phosphatase Total Creatine Kinase 24 L CK-MB (CK-2) TNP CK-MB (CK-2) Rel Index TNP Troponin I < 0.012 B-Natriuretic Peptide < 100 Total Protein Albumin Globulin Albumin/Globulin Ratio Nasal Screen MRSA (PCR) 02/06/19 02/06/19 02/07/19 21:48 21:50 03:40 WBC RBC Hgb Hct MCV MCH MCHC RDW Plt Count Neut % (Auto) Lymph % (Auto) [place] % (Auto) Eos % (Auto) Baso % (Auto) Neut # (Auto) Lymph # (Auto) [place] # (Auto) Eos # (Auto) Baso # (Auto) PT INR APTT 48 H D 40 H D D-Dimer Sodium Potassium Chloride Carbon Dioxide BUN Creatinine Estimated GFR BUN/Creatinine Ratio Glucose Calcium Total Bilirubin AST ALT Alkaline Phosphatase Total Creatine Kinase CK-MB (CK-2) CK-MB (CK-2) Rel Index Troponin I B-Natriuretic Peptide Total Protein Albumin Globulin Albumin/Globulin Ratio Nasal Screen MRSA (PCR) Negative for mrsa 02/07/19 02/07/19 02/07/19 03:40 03:40 03:40 WBC 7.3 RBC 3.91 L Hgb 12.1 Hct 35.0 L MCV 89.6 MCH 30.9 MCHC 34.5 RDW 13.0 Plt Count 213 Neut % (Auto) 51.4 Lymph % (Auto) 29.9 [place] % (Auto) 9.6 Eos % (Auto) 8.3 H Baso % (Auto) 0.8 Neut # (Auto) 3800 Lymph # (Auto) 2200 [place] # (Auto) 700 Eos # (Auto) 600 H Baso # (Auto) 100 PT INR APTT D-Dimer Sodium 136 L Potassium 4.2 Chloride 108 H Carbon Dioxide 23 BUN 18 H Creatinine 0.60 Estimated GFR > 60.0 BUN/Creatinine Ratio 30.0 H Glucose 100 Calcium 8.9 Total Bilirubin AST ALT Alkaline Phosphatase Total Creatine Kinase CK-MB (CK-2) CK-MB (CK-2) Rel Index Troponin I < 0.012 B-Natriuretic Peptide Total Protein Albumin Globulin Albumin/Globulin Ratio Nasal Screen MRSA (PCR) 02/07/19 10:04 WBC RBC Hgb Hct MCV MCH MCHC RDW Plt Count Neut % (Auto) Lymph % (Auto) [place] % (Auto) Eos % (Auto) Baso % (Auto) Neut # (Auto) Lymph # (Auto) [place] # (Auto) Eos # (Auto) Baso # (Auto) PT INR APTT 55 H D D-Dimer Sodium Potassium Chloride Carbon Dioxide BUN Creatinine Estimated GFR BUN/Creatinine Ratio Glucose Calcium Total Bilirubin AST ALT Alkaline Phosphatase Total Creatine Kinase CK-MB (CK-2) CK-MB (CK-2) Rel Index Troponin I B-Natriuretic Peptide Total Protein Albumin Globulin Albumin/Globulin Ratio Nasal Screen MRSA (PCR) Assessment & Plan Assessment & Plan narrative: Impression 1. 48-year-old female admitted to the hospital with PE/DVT. Patient is on IV heparin. We will switch her from IV heparin to Lovenox 1 milligram/kilogram b.i.d.. Insurance authorization in process to determine whether outpatient Xarelto can be prescribed. The patient does report some chest heaviness earlier this morning. Cardiac echo will be obtained to rule out significant right heart strain. The patient is not hypoxic. She has no evidence of wheezing on exam. 2. Asthma, continue home medications 3. Ovarian cyst, patient previously on oral contraceptive pills. In the setting of PE DVT would recommend discontinuation at this time. Anticipate discharge home tomorrow following cardiac echo Quality VTE Deep Vein Thrombosis/Pulmonary Embolism Present on Admission: Yes
[2019-02-07] MEDS: ENOXAPARIN 100 MG/ML SYRINGE 95 MG SUBCUT ×2 (12:59→20:19)
[2019-02-07] MEDS: ACETAMINOPHEN 325 MG TABLET 650 MG PO ×2 (13:38→22:39)
[2019-02-07] MEDS: DOCUSATE 100 MG CAPSULE PO (13:39)
[2019-02-07 15:37] LABS: PTT Partial Thromboplastin Tim 39 SECONDS (26.4-36.2)
[2019-02-07 16:01] LABS: Troponin I < 0.012 ng/mL (0.01-0.034)
[2019-02-07] MEDS: ASPIRIN EC 325 MG TABLET PO (16:47)
[2019-02-07 17:17] LABS: Creatine Kinase 20 U/L (30-135)
[2019-02-07 17:30] LABS: Troponin I < 0.012 ng/mL (0.01-0.034)
--- NOTE | 2019-02-07 18:23 | PC.NURSE ---
1600 - Pt sitting up in bed. Reports pain to central chest 8 of 10. Morphine and Ibuprofen given. VSS. O2 sats 97% on RA. 1630 - Pt called RN back to the room. Something is wrong. Reports chest pain 9 of 10, radiating to the back and shoulder blades. Pt reports a new type of pain. Reports pain has changed from heaviness to sharp. Dr. Lutz at bedside. Orders obtained. Pt placed on 2L, Morphine given. 1730 - Pt up to the bathroom to void. Reports pain improved to a 7 of 10. States I think the oxygen is really helping. supportive family at bedside.
[2019-02-08 00:05] VITALS: BP 139/74; PULSE 98; RESP 16; TEMP 37.3; O2SAT 99
[2019-02-08 03:22] VITALS: BP 134/84; PULSE 94; RESP 18; TEMP 37.6; O2SAT 96
[2019-02-08 08:30] VITALS: BP 136/72; PULSE 100; RESP 17; TEMP 37.6; O2SAT 96
[2019-02-08] MEDS: ACETAMINOPHEN 325 MG TABLET 650 MG PO (08:33)
[2019-02-08] MEDS: ENOXAPARIN 100 MG/ML SYRINGE 95 MG SUBCUT (08:37)
[2019-02-08] MEDS: DOCUSATE 100 MG CAPSULE PO (08:41)
--- NOTE | 2019-02-08 10:22 | PM.DS.1 ---
History of Present Illness History of Present Illness Date Patient Seen: 02/08/19 Time Patient Seen: 11:50 Chief complaint: difficulty breathing, red swollen calf Narrative: Ms Aggie Tavarez is a 48-year-old female patient with history significant for asthma, ovarian cyst, kidney stones, osteoarthritis of the knees, carpal tunnel and ulnar nerve entrapment status post surgery for both who presents to the ER with left calf swelling with redness and shortness of breath. The patient states that she developed calf pain stepping out of her boyfriend's [employer] relating it to a muscular injury. Pain persisted and developing swelling and redness. Two days ago she developed an acute onset of shortness of breath with associated pleuritic chest pain she states she feels like there is a weight on her chest all the time with sharp pain with deep breath. She has had associated complaints of fatigue and cough. Patient leave this to be related to her history of asthma and was using her inhaler more frequently without benefit. Today she had more pain behind the left knee becoming painful to flex prompting her to present to the ER. The patient has risk factors for PE including hormone therapy for ovarian cyst and recent surgeries involving bilateral carpal tunnel surgery as well as bilateral ulnar nerve surgery at the elbow. She reports no recent fevers or chills, headaches or dizziness. She has pleuritic chest pain with exertional dyspnea and a positive cough. She denies abdominal pain, nausea vomiting. She reports no change in bowel or bladder habits. Upon arrival to the ER the patient is afebrile with temperature 97.5?, heart rate is 106, blood pressure 144/74, respirations are 20 saturating 99% on room air. The patient underwent is ultrasound of the left lower extremity was finds left lower extremity occlusive vein thrombosis of the superficial femoral and popliteal veins. A CT of the chest is obtained finding a mild prominence of the pulmonary artery at 2.4 cm, filling defect to the distal right main pulmonary artery extending into the right upper and middle lobes, smaller deficits in the left distal main PA. There is no evidence of right heart strain and heart size is normal. On laboratory analysis the patient's CK and troponin are both negative. Her white count is 10.2 with a hemoglobin of 13.4 and hematocrit 38.7 and platelets of 253. She has a baseline PT of 10.5 PTT of 25 and an INR of 0.9. She has a D-dimer positive at 2502. Her electrolytes are all within normal limits with a BUN of 22 and creatinine of 0.7 and a nonfasting glucose of 95. The patient was started on heparin with a bolus and infusion in the ER. The patient is admitted to the hospital for left lower extremity DVT with bilateral pulmonary emboli. Discharge Providers Provider Date of admission: 02/06/19 20:42 Discharge Date: 02/08/19 Consults: 02/06/19 21:29 Consult to Discharge Planning Routine Comment: 02/07/19 04:26 Consult to Dietitian, Adult Routine Comment: Reason For Exam: Obesity, BMI 35.0 Discharge provider: Jodi Gant MD Summary Hospital Course Discharge Diagnosis: 1. 48-year-old female admitted to the hospital with PE/DVT. 2. Asthma 3. Ovarian cyst, patient previously on oral contraceptive pills. Hospital Course: 1. 48-year-old female admitted to the hospital with PE/DVT. This was effectively stabilized with IV heparin and then Lovenox. She is now stable for discharge. Cardiac echo shows normal right ventricular systolic function. The patient is not hypoxic. She will take Xarelto 15 mg b.i.d. for 3 weeks and then 20 mg daily after that for a total duration of 3-6 months depending on her primary care follow-up and OBGYN follow-up. 2. Asthma, continue home medications 3. Ovarian cyst, patient previously on oral contraceptive pills. In the setting of PE DVT would strongly recommend discontinuation at this time. She will follow up with Dr. Chester. Exam Vital Signs (past 8 hours): - 02/08/19 03:22 02/08/19 08:30 Temperature 99.6 F 99.7 F H Pulse Rate 94 H 100 H Respiratory Rate 18 17 Blood Pressure 134/84 136/72 Pulse Oximetry 96 96 Oxygen Delivery Method Room Air Oxygen Flow Rate 0 Narrative Exam Narrative: She is alert and oriented. No apparent distress. Heart is regular rate and rhythm without murmur. Lungs are clear to auscultation bilaterally. Extremities have no ankle edema. Objective Imaging Echocardiogram: Radiologist's impression: Interpretation Summary Normal left ventricle size with ejection fraction 55-60%. Borderline right ventricular enlargement with normal right ventricular systolic function. No valvular abnormality. Mild-moderate pulmonary hypertension. The right ventricular systolic pressure is estimated to be at least 41 mmHg based on an estimated right atrial pressure of 8 mm Hg. Labs Result Diagrams: 02/07/19 03:40 02/07/19 03:40 Labs: Laboratory Results - last 24 hr 02/07/19 02/07/19 02/07/19 10:04 13:30 15:15 APTT 55 H D 39 H D Total Creatine Kinase CK-MB (CK-2) CK-MB (CK-2) Rel Index Troponin I < 0.012 02/07/19 17:00 APTT Total Creatine Kinase 20 L CK-MB (CK-2) TNP CK-MB (CK-2) Rel Index TNP Troponin I < 0.012 Discharge Plan Discharge Plan Patient Disposition: Home Discharge comment: See Dr. Chester or a new PCP for management of your anticoagulation in one week. The Xarelto plan is 15 mg BID for 3 weeks and then 20 mg QD for 3-6 months. Discharge Med Rec/Prescriptions Prescriptions: New Xarelto 10 mg Tablet 15 mg PO BIDWM Qty: 42 RF: 0 Continued ibuprofen 200 mg tablet 800 mg PO BID PRN (Reason: pain) Qty: 0 RF: 0 fluticasone propionate 50 mcg/actuation spray,suspension 1 spray NASAL DAILY RF: 0 albuterol sulfate 90 mcg/actuation Aerosol Powdr Breath Activated 1 inh INHALATION PRN PRN (Reason: Shortness Of Breath) RF: 0 Discontinued levonorgestrel-ethinyl estrad 0.15 mg-30 mcg (91) tablets,dose pack,3 month 1 tab PO DAILY Qty: 91 RF: 0 Discharge Data Attending Provider: Mejia Granados Admit Date/Time: 02/06/19 20:42 Discharges patient from system. Discharge Date/Time: 02/08/19 14:06 Quality VTE Deep Vein Thrombosis/Pulmonary Embolism Present on Admission: Yes
[2019-02-08 10:57] VITALS: O2SAT 97
--- NOTE | 2019-02-08 13:49 | PC.NURSE ---
pt doing well moving both and bowels and bladder any pain controlled with po tylenol and iv access removed prior to pt showering- planning for d/c to home with [facility] scheduled with karmen JOHNSON @ [facility]- awaiting ride at this time
== END 2019-02-08 14:06 | disposition home or self-care (01) ==
LOC: ED 18:01 → ICU 21:39 → AC 02-07 11:42 → ICU 02-07 11:48
PROVIDERS: Emergency Medicine; Internal Medicine; Admitting Provider Nurse Practitioner Adult Health; Emergency Provider Emergency Medicine; Visit Provider Nurse Practitioner Adult Health
DX: R06.02 Shortness of breath (principal); R60.9 Edema, unspecified; I26.99 Other pulmonary embolism without acute cor pulmonale; I82.432 Acute embolism and thrombosis of left popliteal vein; I82.412 Acute embolism and thrombosis of left femoral vein; J45.909 Unspecified asthma, uncomplicated; E66.9 Obesity, unspecified; Z68.35 Body mass index [BMI] 35.0-35.9, adult; N83.201 Unspecified ovarian cyst, right side
CPT/HCPCS: 36415; 71046; 71275; 80048; 80053; 82550; 83880; 84484; 85025; 85379; 85610; 85730; 87797; 93005; 93041; 93306; 93971; 96365; 96366; 96372; 96375; 96376; 99283; 99285; G0378; J1170; J1644; J1650; J2270; J2405; Q9967

== ENCOUNTER 2019-03-12 13:51 | Emergency (ER) | payer BC, SELFPAY ==
[2019-03-12 13:55] VITALS: BP 143/77; PULSE 91; RESP 18; TEMP 37.6; O2SAT 100; BMI 34.9
--- NOTE | 2019-03-12 14:41 | ED.RECABL ---
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 She states she has been taking rivaroxaban for this. She was seen last Monday at [facility] for complaints of worsening chest pain and was told that a clot was dissolving and moving creating the pain. She was also diagnosed with community-acquired pneumonia and given Levaquin which she started on Monday. She states she has taken the medication from Monday to Monday but then skipped a dose on Monday due to the side effects. She took the medication yesterday but not today. She states the medication makes her feel depressed and angry. She reports no changes and chest pain just continued tightness that she has been feeling over the past few weeks. She also continues to have slightly elevated temp, she states her temperature was 99.8?F yesterday. However, she did experience a dull aching 4/10 thoracic back pain over the past few days which is new, she states ?it feels like I have to stretch my shoulders but when I do it does not help. She denies any alleviating or aggravating factors to this pain. Patient states she had a primary care appointment today with Dr. Mary Ann Gaspar but the provider was ill. She states Dr. Gaspar had plans to repeat her xray. She denies any worsening shortness of breath, abdominal pain, nausea, vomiting, diarrhea, dizziness, or other concerns. Related Data Home Medications Medication Instructions Recorded Confirmed fluticasone propionate 50 1 spray NASAL DAILY 09/24/18 03/12/19 mcg/actuation nasal spray,suspension acetaminophen 500 mg tablet 500 mg PO TID tab 02/19/19 03/12/19 albuterol sulfate 90 mcg/actuation 2 inhalation INHALATION Q4-6H PRN 02/19/19 03/12/19 breath activated powder inhaler each dexamethasone 4 mg tablet 4 mg PO DAILY 03/05/19 03/12/19 ondansetron HCl 4 mg tablet 4 mg PO Q6H PRN tab 03/05/19 03/12/19 oxycodone-acetaminophen 5 mg-325 1 tab PO Q6H PRN 03/05/19 03/12/19 mg tablet Previous Rx's Medication Instructions Recorded rivaroxaban 20 mg tablet 20 mg PO DAILY #90 tab 02/22/19 levofloxacin 750 mg tablet 750 mg PO Q24H #14 tab 03/05/19 doxycycline hyclate 100 mg PO BID 10 Days #20 cap 03/12/19 Allergies Allergy/AdvReac Type Severity Reaction Status Date / Time Penicillins Allergy Unknown Verified 03/05/19 14:28 levofloxacin [From Levaquin] AdvReac Severe Anxiety Verified 03/12/19 16:29 Review of Systems <CHATO Brewster - Last Filed: 03/12/19 20:45> Review of Systems Narrative: REVIEW OF SYSTEMS: GENERAL: Denies fever or chills. HENT: No head trauma, hearing loss or sore throat. EYES: No loss of vision, double vision, eye pain, or irritation. CARDIOVASCULAR: No chest pain or syncope. RESPIRATORY: Patient reports dry cough, see HPI. GASTROINTESTINAL: No nausea, vomiting, diarrhea, or constipation. GENITOURINARY: No flank pain or dysuria. MUSCULOSKELETAL: No pain, weakness, or deformities. INTEGUMENTARY: No rash, lesions, or pruritus. NEURO: No numbness, tingling, memory loss, or confusion. PSYCH: No behavior or mood changes. Patient History <CHATO Brewster - Last Filed: 03/12/19 20:45> Medical History Abnormal Pap smear of cervix (Acute) Asthma (Chronic) Carpal tunnel syndrome (Acute) Family history of blood clots (Acute) Kidney stones (Resolved) Knee osteoarthritis (Chronic) Ovarian cyst (Chronic) Surgical History H/O LEEP (Acute) History of arthroscopy of left knee (Acute) Status post arthroscopic knee surgery (Resolved) Status post (Resolved) Status post cholecystectomy (Resolved) Status post tubal ligation (Resolved) Family History Father Stroke Mother No significant medical problems Grandfather Hypertension Social History household members: friend(s) and other Smoking Status: Never smoker alcohol intake: current alcohol intake frequency: holidays/special occasions only Substance Use Type: does not use Exam <CHATO Brewster - Last Filed: 03/12/19 20:45> Initial Vital Signs Initial Vital Signs: Vital Signs Temperature 99.7 F H 03/12/19 13:55 Pulse Rate 91 H 03/12/19 13:55 Respiratory Rate 18 03/12/19 13:55 Blood Pressure 143/77 H 03/12/19 13:55 Pulse Oximetry 100 03/12/19 13:55 PHYSICAL EXAMINATION: GENERAL: Well groomed, alert, and cooperative. Answers questions promptly and appropriately. Vital signs noted. HENT: Normocephalic, atraumatic. Ear canals patent. Oral mucosa is pink and moist. EYES: Conjunctiva pink, sclera white, no periorbital swelling. CHEST: Normal to inspection and without deformities. CARDIOVASCULAR: S1 and S2 sounds normal. Regular rate and rhythm, no murmurs, clicks, or bruits. No pedal edema. RESPIRATORY: Normal respiratory rate, trachea midline, airway patent. No stridor, nasal flaring or accessory muscle use. Lungs are clear in all fl[place] without wheeze, rhonchi, or crackles. GASTROINTESTINAL: Bowel sounds normoactive. Abdomen is soft and non-tender. No organomegaly. MUSCULOSKELETAL: Normal gait and coordination. Equal tone and mass bilaterally. EXTREMITIES: CMS intact. Moves all extremities. SKIN: Warm, dry, soft, appropriate color for ethnicity. No lesions, rashes, or wounds. NEURO: Alert and Oriented X 3. Good coordination. No ataxia, or sensory deficits, or cognitive issues. PSYCH: Appropriate affect and mood. <Catrina Tran DO - Last Filed: 03/14/19 07:25> Initial Vital Signs Initial Vital Signs: Vital Signs Temperature 99.7 F H 03/12/19 13:55 Pulse Rate 91 H 03/12/19 13:55 Respiratory Rate 18 03/12/19 13:55 Blood Pressure 143/77 H 03/12/19 13:55 Pulse Oximetry 100 03/12/19 13:55 Course <CHATO Brewster - Last Filed: 03/12/19 20:45> Course Course Narrative: Records obtained from [facility] for visit on 03/04/2019: CT Angio Chest at that time so shows no evidence of pulmonary embolism, no significant pulmonary parenchyma abnormality. Orders Ordered: ED Orders 03/12/19 14:40 XR chest 1V Stat 03/12/19 15:12 B Type Natriuretic Peptide Stat Complete Blood Count AUTO DIFF Stat Comprehensive Metabolic Panel Stat Lipase Stat Procalcitonin Stat Troponin & CK Cardiac Panel Stat Consultations Consultation #1: Patient was staffed with Dr. Tran. Vital Signs Vital signs: Vital Signs - 8 hr 03/12/19 13:55 03/12/19 17:24 Temperature 99.7 F H Pulse Rate 91 H 88 Respiratory Rate 18 16 Blood Pressure 143/77 H 138/78 Pulse Oximetry 100 97 <Catrina Tran DO - Last Filed: 03/14/19 07:25> Orders Ordered: ED Orders 03/12/19 14:40 XR chest 1V Stat 03/12/19 15:12 B Type Natriuretic Peptide Stat Complete Blood Count AUTO DIFF Stat Comprehensive Metabolic Panel Stat Lipase Stat Procalcitonin Stat Troponin & CK Cardiac Panel Stat Vital Signs Vital signs: Vital Signs - 8 hr 03/12/19 13:55 03/12/19 17:24 Temperature 99.7 F H Pulse Rate 91 H 88 Respiratory Rate 18 16 Blood Pressure 143/77 H 138/78 Pulse Oximetry 100 97 MDM - Recheck/Abnormal Lab/Rx <CHATO Brewster - Last Filed: 03/12/19 20:45> Medical Records Attestation: I reviewed the patient's medical records. Lab Data Attestation: I reviewed the patient's lab results. Result diagrams: 03/12/19 15:12 03/12/19 15:12 Labs: Lab Results 03/12/19 03/12/19 03/12/19 Range/Units 15:12 15:12 15:12 WBC 7.1 (4.5-11.0) X10^3/uL RBC 4.50 (4.0-5.2) X10^6/uL Hgb 13.7 (12.0-16.0) g/dL Hct 39.5 (36-46) % MCV 87.9 (80-100) fL MCH 30.5 (26-34) PG MCHC 34.7 (30-36) % RDW 12.8 (11.6-14.8) % Plt Count 234 (150-400) X10^3/uL Neut % (Auto) 58.9 (50-75) % Lymph % (Auto) 30.3 (25-40) % [place] % (Auto) 7.4 (3-14) % Eos % (Auto) 2.8 (2-4) % Baso % (Auto) 0.6 (0-2) % Neut # (Auto) 4200 (7920-5586) /uL Lymph # (Auto) 2100 (6563-4459) /uL [place] # (Auto) 500 (0-900) /uL Eos # (Auto) 200 (0-450) /uL Baso # (Auto) 0 (0-100) /uL Sodium 138 (137-145) mmol/L Potassium 4.2 (3.4-5.1) mmol/L Chloride 106 (98-107) mmol/L Carbon Dioxide 27 (22-32) mmol/L BUN 19 H (7-17) mg/dL Creatinine 0.70 (0.52-1.04) mg/dL Estimated GFR > 60.0 (>60) mL/min BUN/Creatinine Ratio 27.1 H (6-22) Glucose 88 (70-100) mg/dL Calcium 10.1 (8.4-10.2) mg/dL Total Bilirubin 0.7 (0.2-1.3) mg/dL AST 31 (14-36) IU/L ALT 19 (<35) IU/L Alkaline Phosphatase 108 (38-126) U/L Total Creatine Kinase 25 L (30-135) U/L CK-MB (CK-2) TNP CK-MB (CK-2) Rel Index TNP Troponin I < 0.012 (0.01-0.034) ng/mL B-Natriuretic Peptide (<100) Total Protein 7.3 (6.3-8.2) g/dL Albumin 4.1 (3.5-5.0) g/dL Globulin 3.2 (1.7-4.1) g/dL Albumin/Globulin Ratio 1.3 (1.0-2.8) Lipase 73 (23-300) U/L Procalcitonin < 0.05 (<0.5) ng/mL 03/12/19 Range/Units 15:12 WBC (4.5-11.0) X10^3/uL RBC (4.0-5.2) X10^6/uL Hgb (12.0-16.0) g/dL Hct (36-46) % MCV (80-100) fL MCH (26-34) PG MCHC (30-36) % RDW (11.6-14.8) % Plt Count (150-400) X10^3/uL Neut % (Auto) (50-75) % Lymph % (Auto) (25-40) % [place] % (Auto) (3-14) % Eos % (Auto) (2-4) % Baso % (Auto) (0-2) % Neut # (Auto) (7336-2089) /uL Lymph # (Auto) (7753-1057) /uL [place] # (Auto) (0-900) /uL Eos # (Auto) (0-450) /uL Baso # (Auto) (0-100) /uL Sodium (137-145) mmol/L Potassium (3.4-5.1) mmol/L Chloride (98-107) mmol/L Carbon Dioxide (22-32) mmol/L BUN (7-17) mg/dL Creatinine (0.52-1.04) mg/dL Estimated GFR (>60) mL/min BUN/Creatinine Ratio (6-22) Glucose (70-100) mg/dL Calcium (8.4-10.2) mg/dL Total Bilirubin (0.2-1.3) mg/dL AST (14-36) IU/L ALT (<35) IU/L Alkaline Phosphatase (38-126) U/L Total Creatine Kinase (30-135) U/L CK-MB (CK-2) CK-MB (CK-2) Rel Index Troponin I (0.01-0.034) ng/mL B-Natriuretic Peptide < 100 (<100) Total Protein (6.3-8.2) g/dL Albumin (3.5-5.0) g/dL Globulin (1.7-4.1) g/dL Albumin/Globulin Ratio (1.0-2.8) Lipase (23-300) U/L Procalcitonin (<0.5) ng/mL Urine Dip Bedside Urine Glucose Negative Bedside Urine Bilirubin + 1 Bedside Urine Ketone - Negative Urine Specific [place] 1.020 Bedside Urine Occult Blood - Negative Bedside Urine pH 6.0 Bedside Urine Protein - Negative Bedside Urine Urobilinogen - Negative Bedside Urine Nitrite - Negative Bedside Urine Leukocytes - Negative Esterase Imaging Data Chest x-ray: Radiologist's impression: [address] [id number] XRay Report Signed Patient: Aggie Tavarez LMR#: [id number] : 1970Acct:[id number] Age/Sex: 48 / FDate of Service: 03/12/19 Loc: ED Accession Number: [id number] Procedure: XR chest 1V Ordering Provider: Sneha Dennison PROCEDURE: XR CHEST 1V INDICATIONS: shortness of breath TECHNIQUE: One view of the chest was acquired. COMPARISON: Merged With [facility], , XR CHEST 2V, 02/06/2019, 17:26. FINDINGS: Surgical changes and devices: None. Lungs and pleura: Lungs are clear. No pleural effusions or pneumothorax. Mediastinum: Mediastinal contours appear normal. Heart size is normal. Bones and chest wall: No suspicious bony lesions. Overlying soft tissues appear unremarkable. IMPRESSION: Normal for age, except for mildly reduced inspiratory volume. Dictated by: Darwin Dimas M.D. on 03/12/2019 at 15:25 Approved by: Darwin Dimas M.D. on 03/12/2019 at 15:25 ECG Data Interpretation: Normal sinus rhythm, rate 78, FL interval 166, QTC 362. No ST depression or ST elevation. T-wave inversion noted to V1 and V2. No ectopy. EKG was also viewed by Dr. Tran per protocol. MDM Narrative Medical decision making narrative: This is a 48-year-old female with a history of bilateral PEs and DVTs recently diagnosed on February 06 presents here because her recent antibiotic are causing intolerable side effects and her doctor's appointment was canceled for today. Patient was recently seen on 03/[address] [facility] and CT angio was negative for any PEs. Patient was recently put on Levaquin on 03/06/2019 for suspected atypical pneumonia. Chest x-ray shows no pneumonia, white blood cell count is within normal limits. However, patient has a slightly elevated temp today at 99.7F. She is non tachycardic and not tachypneic, she has been hemodynamically stable throughout the emergency department stay. I suspect atypical pneumonia most likely due to previous history of PEs, no other source of infection seen on urinalysis, patient was switched to doxycycline as this may be better tolerated than her Levaquin. Patient's prolactin was negative, however, due to patient's risk factor she was switched to doxycycline. Less likely pleural effusion, pneumothorax, or pulmonary nodule (not noted on x-ray). Less likely worsening PE as last CT angio showed no PEs, patient remains compliant on blood thinners, no tachycardia and no tachypnea. Sepsis not suspected due to lack of systemic symptoms such as high fevers, tachycardia, or low blood pressure, prolactin negative. Patient was encouraged to follow up with her primary care provider in the next week for re-evaluation. Cardiac etiology unlikely as patient's troponin was negative, EKG non-remarkable, and chest x-ray did not show cardiomegaly, BNP was not elevated as well. She was counseled extensively about present to the emergency department for worsening symptoms such as chest pain, worsening shortness of breath, increased fevers, or other concerns. <Catrina Tran, - Last Filed: 03/14/19 07:25> Lab Data Attestation: I reviewed the patient's lab results. Labs: Lab Results 03/12/19 03/12/19 03/12/19 Range/Units 15:12 15:12 15:12 WBC 7.1 (4.5-11.0) X10^3/uL RBC 4.50 (4.0-5.2) X10^6/uL Hgb 13.7 (12.0-16.0) g/dL Hct 39.5 (36-46) % MCV 87.9 (80-100) fL MCH 30.5 (26-34) PG MCHC 34.7 (30-36) % RDW 12.8 (11.6-14.8) % Plt Count 234 (150-400) X10^3/uL Neut % (Auto) 58.9 (50-75) % Lymph % (Auto) 30.3 (25-40) % [place] % (Auto) 7.4 (3-14) % Eos % (Auto) 2.8 (2-4) % Baso % (Auto) 0.6 (0-2) % Neut # (Auto) 4200 (0066-7604) /uL Lymph # (Auto) 2100 (2038-3326) /uL [place] # (Auto) 500 (0-900) /uL Eos # (Auto) 200 (0-450) /uL Baso # (Auto) 0 (0-100) /uL Sodium 138 (137-145) mmol/L Potassium 4.2 (3.4-5.1) mmol/L Chloride 106 (98-107) mmol/L Carbon Dioxide 27 (22-32) mmol/L BUN 19 H (7-17) mg/dL Creatinine 0.70 (0.52-1.04) mg/dL Estimated GFR > 60.0 (>60) mL/min BUN/Creatinine Ratio 27.1 H (6-22) Glucose 88 (70-100) mg/dL Calcium 10.1 (8.4-10.2) mg/dL Total Bilirubin 0.7 (0.2-1.3) mg/dL AST 31 (14-36) IU/L ALT 19 (<35) IU/L Alkaline Phosphatase 108 (38-126) U/L Total Creatine Kinase 25 L (30-135) U/L CK-MB (CK-2) TNP CK-MB (CK-2) Rel Index TNP Troponin I < 0.012 (0.01-0.034) ng/mL B-Natriuretic Peptide (<100) Total Protein 7.3 (6.3-8.2) g/dL Albumin 4.1 (3.5-5.0) g/dL Globulin 3.2 (1.7-4.1) g/dL Albumin/Globulin Ratio 1.3 (1.0-2.8) Lipase 73 (23-300) U/L Procalcitonin < 0.05 (<0.5) ng/mL 03/12/19 Range/Units 15:12 WBC (4.5-11.0) X10^3/uL RBC (4.0-5.2) X10^6/uL Hgb (12.0-16.0) g/dL Hct (36-46) % MCV (80-100) fL MCH (26-34) PG MCHC (30-36) % RDW (11.6-14.8) % Plt Count (150-400) X10^3/uL Neut % (Auto) (50-75) % Lymph % (Auto) (25-40) % [place] % (Auto) (3-14) % Eos % (Auto) (2-4) % Baso % (Auto) (0-2) % Neut # (Auto) (3994-9052) /uL Lymph # (Auto) (5751-3082) /uL [place] # (Auto) (0-900) /uL Eos # (Auto) (0-450) /uL Baso # (Auto) (0-100) /uL Sodium (137-145) mmol/L Potassium (3.4-5.1) mmol/L Chloride (98-107) mmol/L Carbon Dioxide (22-32) mmol/L BUN (7-17) mg/dL Creatinine (0.52-1.04) mg/dL Estimated GFR (>60) mL/min BUN/Creatinine Ratio (6-22) Glucose (70-100) mg/dL Calcium (8.4-10.2) mg/dL Total Bilirubin (0.2-1.3) mg/dL AST (14-36) IU/L ALT (<35) IU/L Alkaline Phosphatase (38-126) U/L Total Creatine Kinase (30-135) U/L CK-MB (CK-2) CK-MB (CK-2) Rel Index Troponin I (0.01-0.034) ng/mL B-Natriuretic Peptide < 100 (<100) Total Protein (6.3-8.2) g/dL Albumin (3.5-5.0) g/dL Globulin (1.7-4.1) g/dL Albumin/Globulin Ratio (1.0-2.8) Lipase (23-300) U/L Procalcitonin (<0.5) ng/mL Urine Dip Bedside Urine Glucose Negative Bedside Urine Bilirubin + 1 Bedside Urine Ketone - Negative Urine Specific [place] 1.020 Bedside Urine Occult Blood - Negative Bedside Urine pH 6.0 Bedside Urine Protein - Negative Bedside Urine Urobilinogen - Negative Bedside Urine Nitrite - Negative Bedside Urine Leukocytes - Negative Esterase ECG Data Attestation: I personally reviewed and interpreted this ECG as follows: Prior ECG tracings: available for review Interpretation: Normal sinus rhythm rate 78 p.r. interval 166 QRS [address] elevations or depressions T-wave inversion noted in V2 no other changes Discharge Plan Departure Patient Disposition: Home Clinical Impression: Atypical pneumonia Discharge Date/Time: 03/12/19 17:25 Instructions: DI for Atypical Pneumonia Activity Restrictions/Additional Instructions: Thank you for entrusting me with your care today. As discussed, your x-rays negative for any signs of pneumonia, your previous CT angio is negative for any PEs, your EKG is non-remarkable, any laboratory testing does not show any fluid retention, infection, renal dysfunction, or other concerns. It is possible you may have an atypical pneumonia. Due to the side effects you have been experience in with levofloxacin, please discontinue this medication. You been prescribed doxycycline, take this as directed. Please follow up with your primary care provider in the next week as scheduled. Return to the emergency department for new or worsening symptoms such as worsening chest pain, worsening shortness of breath, very high fevers, uncontrollable vomiting, abdominal pain, or other concerns. Prescriptions: New doxycycline hyclate 100 mg capsule 100 mg PO BID 10 Days Qty: 20 RF: 0 No Action levofloxacin 750 mg tablet 750 mg PO Q24H Qty: 14 RF: 0 fluticasone propionate 50 mcg/actuation spray,suspension 1 spray NASAL DAILY RF: 0 dexamethasone 4 mg tablet 4 mg PO DAILY RF: 0 ondansetron HCl [Zofran] 4 mg tablet 4 mg PO Q6H PRN (Reason: pain) RF: 0 oxycodone-acetaminophen [Percocet] 5-325 mg tablet 1 tab PO Q6H PRN (Reason: pain) RF: 0 acetaminophen [Tylenol Extra Strength] 500 mg tablet 500 mg PO TID RF: 0 Xarelto 20 mg tablet 20 mg PO DAILY Qty: 90 RF: 1 albuterol sulfate 90 mcg/actuation aerosol powdr breath activated 2 inhalation INHALATION Q4-6H PRN (Reason: Shortness Of Breath) RF: 0
[2019-03-12 15:24] LABS: Add Manual Diff / Slide Review NO; Basophils Absolute Auto 0 /uL (0-100); Basophils Percent Auto 0.6 % (0-2); Eosinophils Absolute Auto 200 /uL (0-450); Eosinophils Percent Auto 2.8 % (2-4); Hematocrit 39.5 % (36-46); Hemoglobin 13.7 g/dL (12.0-16.0); Lymphocytes Absolute Auto 2100 /uL (1100-4500); Lymphocytes Percent Auto 30.3 % (25-40); Mean Corpuscular HGB Conc 34.7 % (30-36); Mean Corpuscular Hemoglobin 30.5 PG (26-34); Mean Corpuscular Volume 87.9 fL (80-100); Monocytes Absolute Auto 500 /uL (0-900); Monocytes Percent Auto 7.4 % (3-14); Neutrophils Absolute Auto 4200 /uL (1500-7000); Neutrophils Percent Auto 58.9 % (50-75); Platelet Count 234 X10^3/uL (150-400); Red Cell Distribution Width 12.8 % (11.6-14.8); White Blood Cell Count 7.1 X10^3/uL (4.5-11.0)
[2019-03-12 15:44] LABS: Alanine Aminotransferase 19 IU/L (<35); Albumin 4.1 g/dL (3.5-5.0); Albumin Globulin Ratio 1.3 (1.0-2.8); Alkaline Phosphatase 108 U/L (38-126); Aspartate Aminotransferase 31 IU/L (14-36); BUN Creatinine Ratio 27.1 (6-22); Bilirubin Total 0.7 mg/dL (0.2-1.3); Blood Urea Nitrogen 19 mg/dL (7-17); Calcium 10.1 mg/dL (8.4-10.2); Carbon Dioxide 27 mmol/L (22-32); Chloride 106 mmol/L (98-107); Creatine Kinase 25 U/L (30-135); Estimated Glomerular Filt Rate > 60.0 mL/min (>60); Globulin 3.2 g/dL (1.7-4.1); Glucose 88 mg/dL (70-100); HEMOLYSIS < 15 (0-50); Lipase 73 U/L (23-300); Potassium 4.2 mmol/L (3.4-5.1); Sodium 138 mmol/L (137-145); Total Protein 7.3 g/dL (6.3-8.2)
[2019-03-12 15:56] LABS: Troponin I < 0.012 ng/mL (0.01-0.034)
[2019-03-12 16:38] LABS: Procalcitonin < 0.05 ng/mL (<0.5)
[2019-03-12 16:42] LABS: B Type Natriuretic Peptide < 100 (<100)
[2019-03-12 17:24] VITALS: BP 138/78; PULSE 88; RESP 16; O2SAT 97
== END 2019-03-12 17:25 | disposition home or self-care (01) ==
PROVIDERS: Emergency Provider Nurse Practitioner
DX: J18.9 Pneumonia, unspecified organism (principal); R07.9 Chest pain, unspecified
CPT/HCPCS: 36415; 71045; 80053; 81003; 82550; 83690; 83880; 84145; 84484; 85025; 93005; 99282; 99285

== ENCOUNTER → 2019-04-08 11:49 | Outpatient (CLI) | payer BC, SELFPAY ==
[2019-04-08 18:25] LABS: Follicle Stimulating Hormone 6.36 mIU/mL
== END ==
PROVIDERS: PCP Nurse Practitioner
DX: N83.201 Unspecified ovarian cyst, right side (principal)
CPT/HCPCS: 36415; 83001

== ENCOUNTER → 2019-04-18 12:46 | Outpatient (CLI) | payer BC, SELFPAY ==
--- NOTE | 2019-04-18 12:48 | DI.US.S_ITS ---
LIMITED ULTRASOUND OF RIGHT BREAST: 04/18/2019 CLINICAL: Palpable right breast lumps. Patient returns today to evaluate an architectural distortion in the right breast. Comparison is made to exams dated: 04/18/2019 mammogram - [facility], 08/19/2016 mammogram, and 12/15/2010 mammogram - [facility]. Color flow and real-time ultrasound of the right breast 9-3 o'clock, and retroareolar regions were performed. [place]ana scale images of the real-time examination were reviewed. Targeted ultrasound at the site of the patient's reported first palpable concern within the far medial right breast at 2:30 position 12 cm from the nipple (near the sternum) identifies a 1.2 x 1.1 x 0.4 cm oval circumscribed hyperechoic mass with no internal or peripheral vascularity on Doppler ultrasound. This is located immediately beneath the skin surface. Target ultrasound of the site of the patient's reported second palpable concern within the superior medial right breast at 1:00 position 5 cm from the nipple demonstrates a 1.1 x 1.0 x 0.7 cm oval indistinct hypoechoic mass with posterior shadowing artifact and adjacent vascularity on Doppler imaging. This appears to correlate with the focal asymmetry described on comparison diagnostic mammography. No other masses or abnormalities are identified within the superior right breast by targeted ultrasound to correlate with the suspicious calcifications described on comparison mammography. There is a 3.3 x 1.5 x 1.6 cm lymph node in the right axilla which demonstrates a preserved fatty hilum but also demonstrates an area of focal cortical thickening of at least 3 mm. IMPRESSION: HIGHLY SUGGESTIVE OF MALIGNANCY 1) 1.1 x 1.0 x 0.7 cm oval indistinct hypoechoic mass with adjacent vascularity in the right breast at 1:00 position 5 cm from the nipple is highly suggestive of malignancy. An ultrasound-guided biopsy is recommended. Should this biopsy failed to be positive for malignancy, a stereotactic biopsy of the suspicious finding pleomorphic calcifications of the superior right breast seen on comparison diagnostic mammography would then be recommended. 2) Area of at least 3 mm of focal cortical thickening involving a right axillary lymph node is at moderate suspicion for malignancy. An ultrasound-guided biopsy is recommended. 3) 1.2 x 1.1 x 0.4 cm oval circumscribed hyperechoic mass of the far medial right breast at 2:30 position 12 cm from the nipple (near the sternum) at the site of one of the patient's reported palpable concerns may represent a lipoma and is probably benign. A followup targeted ultrasound in 6 months is recommended to demonstrate stability. These results and recommendations were discussed with the patient at the time of the exam by the [facility] Radiologist Dr. Liliana Summers in person. This exam was interpreted at Station ID: [id number]. Electronically Signed By: Drew Lomeli M.D. ecl/:04/18/2019 17:28:12 copy to: Matty Chester letter sent: Biopsy Required Ultrasound BI-RADS: 5 Highly suggestive of malignancy
--- NOTE | 2019-04-18 12:48 | DI.MG.S_ITS ---
BILATERAL DIGITAL DIAGNOSTIC MAMMOGRAM 3D/2D: 04/18/2019 CLINICAL: Palpable lumps in the right breast. Comparison is made to exams dated: 08/19/2016 mammogram and 12/15/2010 mammogram - [facility]. The tissue of both breasts is heterogeneously dense. This may lower the sensitivity of mammography. There is a triangular skin marker is overlying the site of the patient's reported focal palpable concern of the far medial right breast near the sternum. No convincing underlying mass or abnormality is identified by mammography. There is a triangular skin marker overlying the site of the patient's reported focal palpable concern of the superior medial right breast at middle to posterior depth. There is an oval indistinct focal asymmetry within the superior medial right breast at middle to posterior depth with associated grouped pleomorphic calcifications. There are extensive fine pleomorphic calcifications involving nearly the entirety of the superior right breast, measuring approximately 12.5 cm transverse by 10.5 cm anteroposterior by 8.5 cm craniocaudal in greatest extent. No other significant masses, calcifications, or other findings are seen in either breast. IMPRESSION: INCOMPLETE: NEEDS ADDITIONAL IMAGING EVALUATION 1) No convincing underlying mass or abnormality identified by mammography to correlate with the patient's reported first focal palpable concern of the far medial right breast near the sternum. A targeted ultrasound is recommended for further evaluation. 2) There is an oval indistinct focal asymmetry within the superior medial right breast at middle to posterior depth with associated grouped pleomorphic calcifications, which appears to correlate with the site of the patient's reported second focal palpable concern. A targeted ultrasound is recommended for further evaluation. 3) Extensive fine pleomorphic calcifications involving nearly the entirety of the superior right breast, measuring approximately 12.5 cm transverse by 10.5 cm anteroposterior by 8.5 cm craniocaudal in greatest extent. These are highly suggestive of malignancy. A targeted ultrasound is recommended for further evaluation and to try to find a correlating solid mass. This exam was interpreted at Station ID: [id number]. NOTE: For mammograms, a report in lay terms will be sent to the patient. Approximately 15% of breast malignancies will not be visualized mammographically. In the management of a palpable breast mass, a negative mammogram must not discourage biopsy of a clinically suspicious lesion. Electronically Signed By: Drew Lomeli M.D. ecl/:04/18/2019 17:18:01 ACR BI-RADS Category 0: Incomplete [id number]
== END ==
PROVIDERS: PCP Nurse Practitioner; Visit Provider Nurse Practitioner
DX: R92.8 Other abnormal and inconclusive findings on diagnostic imaging of breast (principal); N63.12 Unspecified lump in the right breast, upper inner quadrant; R92.1 Mammographic calcification found on diagnostic imaging of breast; R59.0 Localized enlarged lymph nodes
CPT/HCPCS: 76642; 77066; G0279

== ENCOUNTER → 2019-05-08 11:59 | Outpatient (CLI) | payer BC, SELFPAY ==
--- NOTE | 2019-05-08 | DI.US.S_ITS ---
ULTRASOUND GUIDED BIOPSY RIGHT BREAST WITH MARKING DEVICE INSERTED AND POST MAMMOGRAPHIC IMAGIN05/08/2019 CLINICAL: Right axillary node biopsy. PATIENT CONSENT: Risks (minor bleeding, infection, vasovagal reaction and repeat procedure), benefits and alternatives were explained to the patient and written informed consent was obtained. Correlation is made to exams dated: 04/18/2019 ultrasound, 04/18/2019 mammogram - [facility], 08/19/2016 mammogram, and 12/15/2010 mammogram - [facility]. An ultrasound guided biopsy using real-time ultrasound was performed for the concerning 3.3 cm x 1.5 cm x 1.6 cm circumscribed oval lymph node located in the right axilla. The skin was prepped in the usual manner. Local anesthetic was administered to the access site. A skin barry was made in the breast. The abnormality was approached from the caudocranial aspect. An 18 gauge biopsy needle was placed adjacent to the abnormality through an introducer device under ultrasound guidance. Once the needle was documented to be in the correct location, two specimens were obtained using Row Sham Bow core biopsy device. A Vision marker clip was inserted into the biopsy cavity. A sterile dressing was applied to the access site. Post procedure mammographic imaging demonstrates the location device at the targeted area and partial removal of the abnormality. The specimens were sent to the laboratory for pathological analysis. IMPRESSION: ULTRASOUND GUIDED BIOPSY BENIGN Ultrasound guided biopsy of the 3.3 cm x 1.5 cm x 1.6 cm lymph node in the right axilla was successful. Final pathology per pathologist Dr. Nohelia Iverson identified small portion of lymph node with no significant histopathologic abnormality. Seperate region of fibroadipose tissue with no significant histomorphologic abnormality. Pathology findings are concordant with imaging. Surgical and oncology consults are recommended for further evaluation and management of the malignant ductal carcinoma in situ identified on concurrent breast mass biopsy performed on the same day 05/08/19, described in seperately dictated biopsy report. These results will be communicated to the patient's referring provider. This exam was interpreted at Station ID: [id number]. Darwin Lomeli M.D. [facility]/:05/13/2019 14:26:38 copy to: Matty Chester
--- NOTE | 2019-05-08 | PATH_ITS ---
[facility] Accession Number: [id number] . 01 Material submitted: . PART A: breast - RIGHT BREAST MASS 1:00 5CM FN PART B: lymph node - RIGHT AXILLARY LYMPH NODE . 02 Diagnosis: A. 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 2.Architectural Patterns: Solid and clinging patterns. 3.Necrosis: Present. 4.Microcalcifications: Rare; associated with benign fibroconnective tissue and adjacent to DCIS. 5.No Invasion Identified. 6.Prognostic Markers: Please see microscopic section for results. . B. Right Axillary Lymph Node, Needle Core Biopsy: Small portion of lymph node with no significant histomorphologic abnormality. Separate region of fibroadipose tissue with no significant histomorphologic abnormality. [facility] 05/10/2019 1438 Local . 02 Comment: Results discussed with Rey triage nurse, on 05-09-19 at approximately 1:25 p.m. . QA performed by Dr. Usha Fischer. . 02 Electronically signed: . Nohelia Iverson MD, Pathologist NPI- [id number] . 01 Gross description: . Received two formalin-filled containers, both labeled with the patient's name: . A. In a container labeled #1, designated right breast mass 1 o'clock 5 cm FN, the specimen is received with plastic filter in container, sample loose in container. The specimen consists of multiple pink-perez to yellow-perez portions of soft tissue which range in size from 0.2 x 0.2 x 0.2 cm to 1.3 x 0.3 x 0.3 cm. All fragments are totally submitted in cassette A1. Collection date: 05/08/19. Collection time per container: 1:25 p.m. Total fixation time: Approximately 10 hours. B. In a container labeled axilla, are two 0.1-0.2 cm in diameter, cylindrical-shaped portions of tissue which range in length from 0.4 cm to 0.5 cm. Entirely submitted in cassette B. ([id number]) /DANIELLA 05/09/2019 0224 Local . 02 Microscopic: . An immunostain is performed with the following results. A control stain showed appropriate reactivity. . RESULTS: Estrogen Receptor (ER) Status: Positive Average intensity of staining: Weak staining in approximately 8% of tumor nuclei. Primary antibody: SP1 . * This test was developed and its performance characteristics determined by [employer]. It has not been cleared or approved by the U.S. Food and Drug Administration. The FDA has determined that such clearance or approval is not necessary. This test is used for clinical purposes. It should not be regarded as investigational or for research. . 02 Pathologist provided ICD-10: D05.10 . 02 CPT . 120282, 419381 Performed at: 01 [facility] [address] [facility], [place], [place] [id number] MD Aníbal Manzo MD Phone: [phone] Performed at: 02 [facility] [address] [place], [place] [id number] MD Roselia Fischer MD Phone: [phone]
--- NOTE | 2019-05-08 12:01 | DI.US.S_ITS ---
ULTRASOUND GUIDED BIOPSY RIGHT BREAST USING VACUUM DEVICE WITH MARKING DEVICE INSERTED AND POST MAMMOGRAPHIC IMAGIN05/08/2019 CLINICAL: Right breast mass. PATIENT CONSENT: Risks (minor bleeding, infection, vasovagal reaction and repeat procedure), benefits and alternatives were explained to the patient and written informed consent was obtained. Correlation is made to exams dated: 05/08/2019 mammogram, 04/18/2019 ultrasound, 04/18/2019 mammogram - [facility], 08/19/2016 mammogram, and 12/15/2010 mammogram - [facility]. An ultrasound guided biopsy using real-time ultrasound was performed for the concerning 1 cm x 0.8 cm x 0.7 cm circumscribed oval solid mass located in the right breast at 1 o'clock middle depth. This was described on the previous ultrasound report. The skin was prepped in the usual manner. Local anesthetic was administered to the access site. A skin barry was made in the breast. The abnormality was approached from the lateral aspect. A 13 gauge biopsy needle was placed adjacent to the abnormality under ultrasound guidance. Once the needle was documented to be in the correct location, five specimens were obtained using the Mammotome biopsy system. The patient received additional local anesthetic during the procedure. A Vision marker clip was inserted into the biopsy cavity. A skin closure strip and a sterile dressing were applied to the access site. Post procedure mammographic imaging demonstrates the location device at the targeted area and partial removal of the abnormality. The specimens were sent to the laboratory for pathological analysis. IMPRESSION: ULTRASOUND GUIDED BIOPSY MALIGNANT Ultrasound guided biopsy of the 1 cm x 0.8 cm x 0.7 cm solid mass in the right breast at 1 o'clock middle depth was successful. Final pathology results per pathologist Dr. Nohelia Iverson identified malignant ductal carcinoma in situ. Pathology findings are concordant with imaging. Surgical and oncology consults are recommended for further evaluation and management. These results will be communicated to the patient's referring provider. This exam was interpreted at Station ID: [id number]. Darwin Lomeli M.D. [facility]/:05/13/2019 14:22:31 copy to: Matty Chester
--- NOTE | 2019-05-08 12:03 | DI.MG.S_ITS ---
UNILATERAL RIGHT DIGITAL DIAGNOSTIC MAMMOGRAM: 05/08/2019 CLINICAL: Post ultrasound biopsy. Clip placement. Comparison is made to exams dated: 04/18/2019 ultrasound, 04/18/2019 mammogram - [facility], and 08/19/2016 mammogram - [facility]. The tissue of right breast is heterogeneously dense. This may lower the sensitivity of mammography. There is a marker clip in the appropriate position in the right breast at 1 o'clock middle depth. This marker clip placement is at the biopsy site. There also is a marker clip in the appropriate position in the right axillary tail. This marker clip placement is at the biopsy site. IMPRESSION: POST PROCEDURE MAMMOGRAM FOR MARKER PLACEMENT There was a successful marker clip placement in the right breast at 1 o'clock middle depth. There was a successful marker clip placement in the right axillary tail. This exam was interpreted at Station ID: [id number]. NOTE: For mammograms, a report in lay terms will be sent to the patient. Approximately 15% of breast malignancies will not be visualized mammographically. In the management of a palpable breast mass, a negative mammogram must not discourage biopsy of a clinically suspicious lesion. Electronically Signed By: Darwin Dimas M.D. [facility]/:05/08/2019 15:26:42 copy to: Matty Chester ACR BI-RADS Category Post-procedure mammogram for marker placement
== END ==
PROVIDERS: PCP Nurse Practitioner; Visit Provider Nurse Practitioner
DX: D05.11 Intraductal carcinoma in situ of right breast (principal)
CPT/HCPCS: 19083; 38505; 76942; 77065

== ENCOUNTER → 2019-08-23 12:32 | Outpatient (CLI) | payer BC, MEDICAID, SELFPAY ==
--- NOTE | 2019-08-23 12:34 | DI.US.S_ITS ---
ULTRASOUND OF LEFT BREAST: 08/23/2019 CLINICAL: Palpable left axilla lump. Dbl mast 07-05-2019. Comparison is made to exams dated: 06/12/2019 ultrasound and 05/23/2019 breast MRI - [facility]. Color flow ultrasound of the left breast was performed on the areas of interest. Sultana scale images of the real-time examination were reviewed. There is a 1.6 cm x 1 cm x 1.3 cm oval fluid collection in the left axillary tail. This oval fluid collection is anechoic. Color flow imaging demonstrates that there is no vascularity present. This fluid collection is within the surgical bed. IMPRESSION: BENIGN There is no sonographic evidence of malignancy. The 1.6 cm x 1 cm x 1.3 cm oval fluid collection is consistent with a hematoma or a seroma and is benign. This exam was interpreted at Station ID: [id number]. Electronically Signed By: Ami rushing/:08/23/2019 14:21:18 letter sent: Normal Exam Ultrasound BI-RADS: 2 Benign
== END ==
PROVIDERS: PCP Nurse Practitioner; Referring Provider Nurse Practitioner; Visit Provider Nurse Practitioner
DX: N63.32 Unspecified lump in axillary tail of the left breast (principal)
CPT/HCPCS: 76882

== ENCOUNTER → 2019-09-20 16:21 | Outpatient (CLI) | payer BC, MEDICAID, SELFPAY ==
--- NOTE | 2019-09-20 16:22 | DI.US.S_ITS ---
PROCEDURE: US PERIPH VENOUS LOW EXTREM RT INDICATIONS: RT LOWER EXTREMITY SWELLING, SUSPECT CLOT TECHNIQUE: Real-time imaging, as well as color and pulse Doppler interrogation, were performed of the lower extremity deep veins from the inguinal ligament to the popliteal fossa. COMPARISON: None. FINDINGS: The common femoral, femoral and popliteal veins are normally compressible, and free of intraluminal thrombus. Color and pulse Doppler demonstrate normal phasic intraluminal flow. There is normal augmentation response to distal compression maneuver. IMPRESSION: No DVT in the right lower extremity. Dictated by: Karyn Bennett M.D. on 09/20/2019 at 17:17 Approved by: Karyn Bennett M.D. on 09/20/2019 at 17:18
== END ==
PROVIDERS: PCP Nurse Practitioner; Referring Provider Nurse Practitioner; Visit Provider Nurse Practitioner
DX: M79.89 Other specified soft tissue disorders (principal); M79.604 Pain in right leg; Z86.2 Personal history of diseases of the blood and blood-forming organs and certain disorders involving the immune mechanism; Z86.711 Personal history of pulmonary embolism; Z86.718 Personal history of other venous thrombosis and embolism
CPT/HCPCS: 93971

== ENCOUNTER → 2019-09-26 11:45 | Outpatient (CLI) | payer BC, SELFPAY ==
[2019-09-28 14:07] LABS: COVID19 Sendout Not Detected (Not Detected)
== END ==
PROVIDERS: PCP Nurse Practitioner; Visit Provider Registered Nurse
DX: J02.9 Acute pharyngitis, unspecified (principal); R50.9 Fever, unspecified
CPT/HCPCS: 87070; 87077; 87147; 87635

== ENCOUNTER → 2019-10-11 15:53 | Outpatient (CLI) | payer BC, MEDICAID, SELFPAY ==
--- NOTE | 2019-10-11 15:55 | DI.RAD.S_ITS ---
PROCEDURE: XR SHOULDER LT MIN 2V INDICATIONS: shoulder pain, rotator cuff strain TECHNIQUE: 3 views of the shoulder were acquired. COMPARISON: [facility], CT, CT ANGIO CHEST PE PROTOCOL, 02/06/2019, 18:30. FINDINGS: Bones: No fractures or dislocations. No suspicious bony lesions. Visualized ribs appear intact. Degenerative changes are seen, with mild subacromial spurring. Soft tissues: No suspicious soft tissue calcifications. Left axillary clips can be seen. The visualized lung demonstrates an unremarkable appearance. IMPRESSION: Mild degenerative changes are seen by plain film. If it would be helpful for clinical management decision making, please consider a dedicated shoulder MRI for further evaluation (assuming that there is no contraindication). If there is strong clinical concern for a labral abnormality, this should be performed according to the arthrogram protocol. Dictated by: Jacinto Lomeli M.D. on 10/11/2019 at 15:46 Approved by: Jacinto Lomeli M.D. on 10/11/2019 at 15:48
== END ==
PROVIDERS: PCP Nurse Practitioner; Referring Provider Family Medicine; Visit Provider Family Medicine
DX: M25.512 Pain in left shoulder (principal); G89.29 Other chronic pain; M99.07 Segmental and somatic dysfunction of upper extremity
CPT/HCPCS: 73030

== ENCOUNTER → 2019-10-21 17:29 | Outpatient (CLI) | payer BC, SELFPAY | PROVIDERS: PCP Nurse Practitioner; Referring Provider Family Medicine; Visit Provider Family Medicine | DX: M25.512 Pain in left shoulder (principal); Z53.8 Procedure and treatment not carried out for other reasons; G89.29 Other chronic pain ==

== ENCOUNTER → 2019-10-30 13:26 | Outpatient (CLI) | payer OTHER, MEDICAID, SELFPAY ==
--- NOTE | 2019-10-30 | DI.RAD.S_ITS ---
PROCEDURE: FL SHOULDER INJECTION MR/CT LT INDICATIONS: Chronic shoulder pain TECHNIQUE: The indications, alternatives, benefits, risks, and complications of the procedure were explained to the patient. Written informed consent was obtained and placed in the chart. The shoulder was examined fluoroscopically and a site for needle placement chosen for entry into the glenohumeral joint from an anterior approach. The skin was prepped and draped in a sterile fashion, and 1% lidocaine infiltrated from skin down to joint capsule. A spinal needle was inserted into the glenohumeral joint, and a small amount of iodinated contrast media injected to confirm intra-articular placement of the needle tip. This was followed by approximately 12 mL dilute solution of a gadolinium containing MR contrast agent. The needle was removed and a dressing was applied. The patient was given postprocedural instructions and sent to the MR suite for MR imaging. FINDINGS: A single fluoroscopic spot image demonstrates intra-articular location of injected iodinated contrast. IMPRESSION: Successful fluoroscopically guided administration of dilute Gadolinium solution into the shoulder joint for MR arthrogram. Dictated by: Darwin Dimas M.D. on 10/30/2019 at 14:44 Approved by: Darwin Dimas M.D. on 10/30/2019 at 14:44
--- NOTE | 2019-10-30 13:41 | DI.MRI.S_ITS ---
PROCEDURE: MR SHOULDER LT W CON INDICATIONS: Chronic shoulder pain TECHNIQUE: After the administration of 12 mL of dilute intra-articular Gadolinium contrast, oblique coronal T1 and T2 spin echo with fat saturation, oblique sagittal T1 spin echo with and without fat saturation, oblique sagittal T2 fast spin echo with fat saturation, axial T1 spin echo with fat saturation through the shoulder. COMPARISON: [facility], CR, XR SHOULDER LT MIN 2V, 10/11/2019, 15:46. FINDINGS: Image quality: Diagnostic. Rotator cuff: No full-thickness or high-grade partial-thickness tear of the rotator cuff is evident. However, there is moderate grade partial-thickness tearing involving the supraspinatus and infraspinatus tendons along the articular surface tear propagates along the myotendinous junction involving the supraspinatus tendon. There is thickening and increased signal involving these 2 tendons. The subscapularis and teres minor tendons are intact. There is no significant atrophy of the rotator cuff muscles. Bones and bursae: No acute fracture, dislocation, or suspicious osseous lesion is identified involving the osseous structures of the left shoulder. No significant degenerative changes of the glenohumeral joint are present. There are severe degenerative changes of the acromio clavicular joint with undersurface osteophytes and mild degenerative/reactive marrow edema. There is adequate distention of the glenohumeral joint with the injected contrast. None of this contrast is seen extending into the subacromial subdeltoid bursa. However, there is a small amount of fluid contained within the bursa. Capsule and soft tissues: There is a small superior labral tear identified extending from the 11 o'clock position to the 1 o'clock position. No displaced labral tears are evident. No para labral cysts are evident. The long head of the biceps tendon is normally positioned within the bicipital groove and is otherwise intact. The superior and middle glenohumeral ligaments are intact. A small amount of the injected contrast is noted to extend beyond the inferior joint capsule, compatible with a small perforating tear of the inferior glenohumeral ligament, which is likely chronic given lack of significant soft tissue edema within the left axilla. IMPRESSION: 1. Moderate grade articular surface partial thickness tearing and tendinopathy of the distal supraspinatus and infraspinatus tendons. There is a delaminating/interstitial component extending along the supraspinatus myotendinous junction. 2. Severe degenerative changes of the acromioclavicular joint. Please correlate clinically to exclude subacromial impingement. 3. Small superior labral tear. 4. Chronic appearing perforating injury of the inferior glenohumeral ligament. 5. Minimal fluid within the subacromial subdeltoid bursa may be related to bursitis. Dictated by: Gregor Monaco M.D. on 10/30/2019 at 15:35 Approved by: Gregor Monaco M.D. on 10/30/2019 at 15:38
== END ==
PROVIDERS: PCP Nurse Practitioner; Referring Provider Family Medicine; Visit Provider Family Medicine
DX: M25.512 Pain in left shoulder (principal); M19.012 Primary osteoarthritis, left shoulder; M75.112 Incomplete rotator cuff tear or rupture of left shoulder, not specified as traumatic; S43.492A Other sprain of left shoulder joint, initial encounter; Z78.0 Asymptomatic menopausal state; G89.29 Other chronic pain
CPT/HCPCS: 23350; 36415; 73222; 77002; 83001

== ENCOUNTER → 2019-12-02 11:58 | Outpatient (CLI) | payer OTHER, MEDICAID, SELFPAY ==
--- NOTE | 2019-12-02 11:59 | DI.MRI.S_ITS ---
PROCEDURE: MR BRAIN (IAC) WWO CON INDICATIONS: eval for previous stroke or other structural abn TECHNIQUE: Noncontrast sagittal T1 spin echo, axial FLAIR, axial gradient echo, axial diffusion and ADC through the brain. Axial thin-slice 3D CISS, coronal TruFISP, axial T1 spin echo with fat saturation through the internal auditory canals. After the administration of contrast, thin slice axial and coronal T1 spin echo with fat saturation through the internal auditory canals, and axial T1 spin echo with fat saturation through the brain. COMPARISON: None. FINDINGS: Image quality: Excellent. Cerebellopontine angles: No cerebellopontine angle masses. Inner ear structures appear normally formed. No suspicious enhancement in the internal auditory canal or along the course of the 7th cranial nerve. CSF spaces: Ventricles are normal in size and shape. No extra-axial fluid collections. Basal cisterns are patent. Brain: No intracranial bleeds or mass effects. Sultana-white matter interface is intact. No abnormal intracranial enhancement. Diffusion weighted images demonstrate no acute ischemic insults. Brainstem appears normal. Normal intravascular flow voids are present. Skull and face: Calvarial marrow signal is normal. Orbits appear normal. Sinuses: Mild mucosal thickening is seen within the paranasal sinuses. No abnormal fluid is seen within the mastoid air cells. IMPRESSION: No significant abnormality is seen. Specifically, no masses or abnormal enhancement are seen within the cerebellopontine angle cisterns or within the internal auditory canals. No findings of acute or subacute infarction can be seen. Dictated by: Jacinto Lomeli M.D. on 12/02/2019 at 11:49 Approved by: Jacinto Lomeli M.D. on 12/02/2019 at 11:51
== END ==
PROVIDERS: PCP Nurse Practitioner; Referring Provider Nurse Practitioner; Visit Provider Nurse Practitioner
DX: H53.9 Unspecified visual disturbance (principal); R42 Dizziness and giddiness
CPT/HCPCS: 70553

== ENCOUNTER 2020-04-21 15:05 | Emergency (ER) | payer OTHER, MEDICAID, SELFPAY ==
[2020-04-21 15:12] VITALS: BP 113/69; PULSE 97; RESP 17; TEMP 36.8; O2SAT 99; BMI 35.7
--- NOTE | 2020-04-21 15:20 | DI.RAD.S_ITS ---
PROCEDURE: XR HIP W PEL IF DONE LT 2V INDICATIONS: pain, unable to bear weight. TECHNIQUE: AP pelvis with lateral view(s) of the left hip(s). COMPARISON: [facility], CT, CT ABDOMEN PELVIS WITH CONTRAST, 12/09/2019, 15:13. FINDINGS: Bones: No fractures or dislocations. Pelvic ring appears intact. No suspicious bony lesions. Mild left hip joint osteoarthritis, pelvic reconstruction surgery on the right. Soft tissues: The visualized bowel gas pattern is normal. No suspicious soft tissue calcifications. Bilateral aortic stent graft. IMPRESSION: Mild hip joint osteoarthritis on the left, prior right-side pelvic reconstruction surgery with fixation plate. Note: The laterality hand entered onto the image is incorrect, stating Right in 2 places, superimposed on the left pelvis and left hip area. The incorrect laterality is confirmed by reference to the prior CT scanning that included the pelvis 12/09/19. Dictated by: Darwin Dimas M.D. on 04/21/2020 at 16:06 Approved by: Darwin Dimas M.D. on 04/21/2020 at 16:10
--- NOTE | 2020-04-21 18:30 | ED_ITS ---
HPI - Extremity Problem General Chief complaint: Extremity Problem,Nontraumatic Stated complaint: left hip pain Time Seen by Provider: 04/21/20 18:04 Source: patient Mode of arrival: Ambulatory Limitations: no limitations History of Present Illness HPI Narrative: Patient is a 49-year-old female. Approximately 1 month ago she was discharged from the hospital after having an extended ICU stay secondary to complications after having an IVC filter removed. Since that time she has been seeing physical therapy. She has had some difficulty with walking. She does have a walker at home. Has had left hip pain however over the past 24 hours had an increase in the left hip pain to the point where she was coming down some stairs and was unable to get up and walk. She denies any new trauma. Points to the outside of her hip as where her discomfort is located. Related Data Home Medications Medication Instructions Recorded Confirmed fluticasone propionate 50 1 spray NASAL DAILY 09/24/18 03/18/20 mcg/actuation nasal spray,suspension acetaminophen 500 mg tablet 500 mg PO TID tab 02/19/19 03/18/20 enoxaparin 100 mg/mL subcutaneous 100 mg SUBCUT Q12H 07/24/19 03/18/20 syringe Previous Rx's Medication Instructions Recorded pregabalin 25 mg capsule 75 mg PO DAILY #270 cap 09/20/19 alprazolam 0.25 mg tablet 0.25 mg PO BID #7 tab 11/25/19 midodrine 2.5 mg tablet 2.5 mg PO ONCE #90 tab 12/09/19 pregabalin 150 mg capsule 150 mg PO BID #180 cap 12/09/19 albuterol sulfate 90 mcg/actuation 2 inh INHALATION Q4-6H PRN #1 ea 03/18/20 breath activated powder inhaler duloxetine 30 mg capsule,delayed 30 mg PO BID #180 cap 03/18/20 release fluticasone propionate 50 1 spray INTRANASAL DAILY #9.9 ml 03/18/20 mcg/actuation nasal spray,suspension hydroxyzine pamoate 50 mg capsule 50 mg PO QID PRN #90 cap 03/18/20 propranolol 10 mg tablet 10 mg PO DAILY #60 tab 03/18/20 prednisone 40 mg PO DAILY 3 Days #6 tab 04/21/20 Allergies Allergy/AdvReac Type Severity Reaction Status Date / Time levofloxacin [From Levaquin] AdvReac Severe Anxiety Verified 03/18/20 10:13 Penicillins AdvReac Severe Very high Verified 03/18/20 10:13 fever - had to be placed in an ice bath Review of Systems Constitutional Constitutional: Denies fever(s) and Denies headache(s) ENT Ears, Nose, Mouth, and Throat: Denies headache(s) Cardiovascular Cardiovascular: Denies chest pain and Denies dyspnea Respiratory Respiratory: Denies dyspnea Musculoskeletal Comments: Left hip pain Integumentary/Breasts Skin/Breast: Denies lesions and Denies rash Neurologic Neurologic: Denies headache(s) Psychiatric Psychiatric: Denies depression Hematologic/Lymphatic Comments: On Lovenox Allergic/Immunologic Allergic/Immunologic: Denies urticaria Patient History Medical History Abnormal Pap smear of cervix Allergies Anemia Anterior to posterior tear of superior glenoid labrum of left shoulder Anxiety Asthma Bilateral pulmonary embolism Carpal tunnel syndrome Chronic left shoulder pain Depression with anxiety Dizziness Family history of blood clots History of pulmonary embolism History of recent hemorrhage Hypotension Incomplete rotator cuff tear Kidney stones Knee osteoarthritis Left leg pain Left leg swelling Neck pain Ovarian cyst Pain Pain of right scapula Paresthesia of right foot Presence of IVC filter Right leg DVT Shortness of breath Strep pharyngitis Superficial thrombophlebitis of left upper extremity Upper extremity somatic dysfunction Vertigo Visual disturbances Surgical History H/O bilateral mastectomy H/O LEEP History of arthroscopy of left knee S/P insertion of IVC (inferior vena caval) filter Status post arthroscopic knee surgery Status post Status post cholecystectomy Status post mastectomy Status post tubal ligation Family History Father Stroke Mother No significant medical problems Grandfather Hypertension Social History household members: friend(s) and other Smoking Status: Never smoker alcohol intake: current Smoking Status: Never smoker alcohol intake frequency: holidays/special occasions only Substance Use Type: does not use Exam Initial Vital Signs Initial Vital Signs: Vital Signs Temperature 98.3 F 04/21/20 15:12 Pulse Rate 97 H 04/21/20 15:12 Respiratory Rate 17 04/21/20 15:12 Blood Pressure 113/69 04/21/20 15:12 Pulse Oximetry 99 04/21/20 15:12 Const General: cooperative and comfortable Limitations: mental status not altered Resp Effort & Inspection: normal respiratory effort Cardio Rate: regular rate Skin Lesions: no lesions Rashes: no rashes Neuro General: patient alert, patient awake and patient oriented x3 Extrem Other: Tenderness to palpation lateral aspect of the left hip over the greater trochanter. Does not seem to extend inferior along the ITB and. Does not extend posterior. Does not have any groin tenderness. Left knee and left ankle unremarkable Psych Appearance: grossly normal and well kempt Course Orders Ordered: ED Orders 04/21/20 15:20 XR hip w pel if done LT 2V Stat Vital Signs Vital signs: Vital Signs - 8 hr 04/21/20 18:59 Pulse Rate 71 Respiratory Rate 16 Blood Pressure 117/79 Pulse Oximetry 99 MDM - Extremity (Nontraumatic) Imaging Data Extremity x-ray #1: Radiologist's Impression: [address] [id number] ReportSigned Patient: Aggie Tavarez LMR#: [id number]: [id number]:[id number]/Sex: 49 / FDate of Service: 04/21/20Loc: EDAccession Number: [id number] Procedure: XR hip w pel if done LT 2V Ordering Provider: Catrina Tran D.O. PROCEDURE: XR HIP W PEL IF DONE LT 2V INDICATIONS: pain, unable to bear weight. TECHNIQUE: AP pelvis with lateral view(s) of the left hip(s). COMPARISON: [facility], CT, CT ABDOMEN PELVIS WITH CONTRAST, 12/09/2019, 15:13. FINDINGS: Bones: No fractures or dislocations. Pelvic ring appears intact. No suspicious bony lesions. Mild left hip joint osteoarthritis, pelvic reconstruction surgery on the right. Soft tissues: The visualized bowel gas pattern is normal. No suspicious soft tissue calcifications. Bilateral aortic stent graft. IMPRESSION: Mild hip joint osteoarthritis on the left, prior right-side pelvic reconstruction surgery with fixation plate. Note: The laterality hand entered onto the image is incorrect, stating Right in 2 places, superimposed on the left pelvis and left hip area. The incorrect laterality is confirmed by reference to the prior CT scanning that included the pelvis 12/09/19. Dictated by: Darwin Dimas M.D. on 04/21/2020 at 16:06 Approved by: Darwin Dimas M.D. on 04/21/2020 at 16:10 [facility] Narrative Medical decision making narrative: No fractures or dislocations on the x-rays. Has tenderness along the greater trochanter. Low suspicion for fracture. I suspect that this is soft tissue pain most likely from either a ten dinitis/bursitis or direct muscle atrophy given the fact that she was spent several weeks sedated in the ICU. No indication for emergent orthopedic consultation. Patient is neurovascularly intact. Did discuss return precautions and follow-up instructions. Patient expressed understanding agreement. Discharge Plan Departure Patient Disposition: Home Clinical Impression: Hip pain Instructions: How To Perform RICE (Rest, Ice, Compress, Elevate), DI for Hip Pain Activity Restrictions/Additional Instructions: Continue all of your medications as directed. I do recommend that you contact your primary provider for follow-up to discuss more physical therapy. Return to the emergency department for any new symptoms Prescriptions: New prednisone 20 mg tablet 40 mg PO DAILY 3 Days Qty: 6 RF: 0 No Action fluticasone propionate 50 mcg/actuation spray,suspension 1 spray NASAL DAILY RF: 0 pregabalin 25 mg capsule 75 mg PO DAILY Qty: 270 RF: 3 duloxetine 30 mg capsule,delayed release(DR/EC) 30 mg PO BID Qty: 180 RF: 3 hydroxyzine pamoate 50 mg capsule 50 mg PO QID PRN (Reason: Anxiety or insomnia) Qty: 90 RF: 2 albuterol sulfate 90 mcg/actuation aerosol powdr breath activated 2 inh INHALATION Q4-6H PRN (Reason: Shortness Of Breath) Qty: 1 RF: 3 fluticasone propionate [Flonase Allergy Relief] 50 mcg/actuation spray,suspension 1 spray intranasal DAILY Qty: 9.9 RF: 3 propranolol 10 mg tablet 10 mg PO DAILY Qty: 60 RF: 1 acetaminophen [Tylenol Extra Strength] 500 mg tablet 500 mg PO TID RF: 0 enoxaparin [Lovenox] 100 mg/mL syringe 100 mg SUBCUT Q12H RF: 0 alprazolam 0.25 mg tablet 0.25 mg PO BID Qty: 7 RF: 0 pregabalin 150 mg capsule 150 mg PO BID Qty: 180 RF: 3 midodrine 2.5 mg tablet 2.5 mg PO ONCE Qty: 90 RF: 1 Hold Instructions: per providers Referrals: Mary Ann Gaspar ARNP [Primary Care Provider] -
[2020-04-21 18:59] VITALS: BP 117/79; PULSE 71; RESP 16; O2SAT 99
== END 2020-04-21 19:22 | disposition home or self-care (01) ==
PROVIDERS: Emergency Provider Emergency Medicine; PCP Nurse Practitioner
DX: M25.552 Pain in left hip (principal)
CPT/HCPCS: 73502; 99283

== ENCOUNTER → 2020-06-01 11:52 | Outpatient (CLI) | payer OTHER, MEDICAID, SELFPAY ==
[2020-05-11 13:16] VITALS: BMI 35.0
--- NOTE | 2020-06-01 11:54 | DI.MRI.S_ITS ---
BREAST MRI OF BOTH BREASTS: 06/01/2020 CLINICAL: S/P bilateral mastectomy. TECHNIQUE: The patient was placed prone in a dedicated breast imaging coil. Precontrast axial STIR and 3D FLASH without fat saturation sequences were obtained. Both before and after bolus injection of contrast, sequential 1-minute axial 3D FLASH with fat saturation sequences for 3 time points, with subtraction images and maximum intensity projections (MIP's) generated. Delayed sagittal FLASH images with fat saturation were also obtained. Computer-aided detection, including computer algorithm analysis of MRI image data for lesion detection and characterization, pharmacokinetic analysis, with further physician review for interpretation, was performed. COMPARISON: [facility], MR, MR BREAST BILATERAL WITH CAD, 05/23/2019, 8:40. [facility], , AXILLARY ONLY, 08/23/2019, 12:53. [facility], , AXILLARY ONLY LT, 06/01/2020, 13:28. FINDINGS: Image quality: Excellent. Status post bilateral mastectomy. No suspicious enhancement identified in the surgical site on either side. No suspicious chest wall enhancement identified. In the superior margins of the left axilla, there is a persistent prominent axillary lymph node measuring approximately 2.0 cm in maximum dimension. This is relatively stable in size and maintains a reniform morphology with uniform, thin cortex. This is also immediately adjacent to previously seen left axillary postoperative fluid collection which has since resolved. Findings correlate with sonographic evaluation from same day. Otherwise, no suspicious axillary or internal mammary chain adenopathy on either side. Visualized portions of the chest and upper abdomen appear unremarkable. Expected postoperative changes of the anterior chest from bilateral mastectomy. IMPRESSION: PROBABLY BENIGN 1. Status post bilateral mastectomy with expected postoperative changes of the anterior chest. 2. Interval resolution of previously seen left axillary postoperative fluid collection noted on comparison ultrasound dated August 23, 2019. There is a persistent prominent high left axillary lymph node measuring approximately 2.0 cm in maximum dimension demonstrating preservation of central fatty hilum and thin uniform cortex. This has not changed significantly since prior MRI dated May 23, 2019. This is also visualized on today's comparison left axillary ultrasound. This most likely represents a reactive lymph node and is probably benign. Recommend continued clinical and imaging surveillance to document continued stability. COMMENT: The imaging literature indicates that a negative contrast breast MRI examination has a high sensitivity and a moderate specificity for detecting and excluding invasive carcinomas to a detection threshold of 3-5 mm; nonetheless, appropriate clinical and mammographic follow-up are recommended. MRI is not sensitive for detecting DCIS (ductal carcinoma in situ) and may not detect large invasive neoplasms that show only minimal enhancement such as mucinous carcinoma. If there are suspicious calcifications or clinically worrisome palpable masses, then biopsy should still be considered. Invasive neoplasms can be hidden by co-existent and benign enhancement caused by mastitis, hormone therapy effects, radiation therapy, , and recent biopsy or surgery. False positive examinations can occur in a number of circumstances, including breasts that have recently been subject to invasive procedures and those that contain atypical ductal hyperplasia, hormonally stimulated glandular tissue, fat necrosis, or radial scars. This exam was interpreted at Station ID: [id number]. Electronically Signed By: Kurtis Deras M.D. aty/:06/01/2020 19:31:25 ACR BI-RADS Category 3: Probably benign [id number]
--- NOTE | 2020-06-01 11:54 | DI.US.S_ITS ---
ULTRASOUND OF LEFT BREAST: 06/01/2020 CLINICAL: Palpable left axilla lump. Comparison is made to exams dated: 06/01/2020 breast MRI, 08/23/2019 ultrasound - [facility], 06/12/2019 ultrasound, and 05/23/2019 breast MRI - [facility]. Color flow and real-time ultrasound of the left breast were performed. Sultana scale images of the real-time examination were reviewed. There is a 2 cm enlarged lymph node in the left axillary tail. This enlarged lymph node displays fatty hilum and maintains a uniform, thin cortex. This correlates with today's breast MRI findings. Color flow imaging demonstrates that there is vascularity present in the hilum. Previously seen post operative fluid collection in the left axilla has resolved. IMPRESSION: PROBABLY BENIGN A 2 cm enlarged left axillary lymph node most likely is a reactive node and is probably benign. Recommend clinical follow up for development of any clinically suspicious findings. A follow-up left ultrasound in 6 months is recommended to demonstrate stability versus resolution. This exam was interpreted at Station ID: [id number]. Electronically Signed By: Kurtis Deras M.D. aty/:06/01/2020 16:28:05 letter sent: Followup Recommended Ultrasound BI-RADS: 3 Probably benign
== END ==
PROVIDERS: PCP Nurse Practitioner; Referring Provider Nurse Practitioner; Visit Provider Nurse Practitioner
DX: R59.0 Localized enlarged lymph nodes (principal); D05.10 Intraductal carcinoma in situ of unspecified breast; Z90.13 Acquired absence of bilateral breasts and nipples
CPT/HCPCS: 76882; 77049; A9579

== ENCOUNTER → 2020-06-04 13:13 | Outpatient (CLI) | payer OTHER, MEDICAID, SELFPAY ==
[2020-05-11 13:16] VITALS: BMI 35.0
[2020-06-04 13:59] LABS: Add Manual Diff / Slide Review NO; Basophils Absolute Auto 0 /uL (0-100); Basophils Percent Auto 0.8 % (0-2); Eosinophils Absolute Auto 300 /uL (0-450); Hematocrit 38.5 % (36-46); Hemoglobin 12.8 g/dL (12.0-16.0); Lymphocytes Absolute Auto 1800 /uL (1100-4500); Lymphocytes Percent Auto 33.9 % (25-40); Mean Corpuscular HGB Conc 33.2 % (30-36); Mean Corpuscular Hemoglobin 29.6 PG (26-34); Mean Corpuscular Volume 89.4 fL (80-100); Monocytes Absolute Auto 500 /uL (0-900); Monocytes Percent Auto 8.5 % (3-14); Neutrophils Absolute Auto 2800 /uL (1500-7000); Neutrophils Percent Auto 50.8 % (50-75); Platelet Count 194 X10^3/uL (150-400); Red Cell Distribution Width 12.7 % (11.6-14.8); White Blood Cell Count 5.4 X10^3/uL (4.5-11.0)
[2020-06-04 14:18] LABS: Alanine Aminotransferase 15 IU/L (<35); Albumin Globulin Ratio 1.2 (1.0-2.8); Alkaline Phosphatase 105 U/L (38-126); Aspartate Aminotransferase 24 IU/L (14-36); BUN Creatinine Ratio 17.9 (6-22); Bilirubin Total 0.3 mg/dL (0.2-1.3); Blood Urea Nitrogen 14 mg/dL (7-17); Calcium 9.9 mg/dL (8.4-10.2); Carbon Dioxide 30 mmol/L (22-32); Chloride 107 mmol/L (98-107); Estimated Glomerular Filt Rate > 60.0 mL/min (>60); Globulin 3.3 g/dL (1.7-4.1); Glucose 89 mg/dL (70-100); HEMOLYSIS < 15 (0-50); Potassium 4.3 mmol/L (3.4-5.1); Sodium 138 mmol/L (137-145); Total Protein 7.3 g/dL (6.3-8.2)
== END ==
PROVIDERS: PCP Nurse Practitioner; Referring Provider Specialist; Visit Provider Specialist
DX: Z87.19 Personal history of other diseases of the digestive system (principal); Z87.448 Personal history of other diseases of urinary system
CPT/HCPCS: 36415; 80053; 85025

== ENCOUNTER 2020-06-09 13:50 | Emergency (ER) | payer OTHER, MEDICAID, SELFPAY ==
[2020-05-11 13:16] VITALS: BMI 35.0
[2020-06-09 13:55] VITALS: BP 121/78; PULSE 93; RESP 20; TEMP 36.3; O2SAT 100
--- NOTE | 2020-06-09 14:39 | DI.US.S_ITS ---
PROCEDURE: US PERIPH VENOUS LOW EXTREM RT INDICATIONS: PAIN TECHNIQUE: Real-time imaging, as well as color and pulse Doppler interrogation, were performed of the lower extremity deep veins from the inguinal ligament to the popliteal fossa. COMPARISON: None. FINDINGS: The common femoral, femoral and popliteal veins are normally compressible, and free of intraluminal thrombus. Color and pulse Doppler demonstrate normal phasic intraluminal flow. There is normal augmentation response to distal compression maneuver. IMPRESSION: No sonographic evidence of DVT. Dictated by: Wilfrid Lewis M.D. on 06/09/2020 at 15:19 Approved by: Wilfrid Lewis M.D. on 06/09/2020 at 15:19
[2020-06-09 15:01] LABS: Add Manual Diff / Slide Review NO; Basophils Absolute Auto 0 /uL (0-100); Basophils Percent Auto 0.7 % (0-2); Eosinophils Absolute Auto 400 /uL (0-450); Eosinophils Percent Auto 7.2 % (2-4); Hemoglobin 13.4 g/dL (12.0-16.0); Lymphocytes Absolute Auto 1600 /uL (1100-4500); Mean Corpuscular HGB Conc 34.2 % (30-36); Mean Corpuscular Hemoglobin 30.3 PG (26-34); Mean Corpuscular Volume 88.5 fL (80-100); Monocytes Absolute Auto 400 /uL (0-900); Monocytes Percent Auto 7.7 % (3-14); Neutrophils Absolute Auto 3100 /uL (1500-7000); Neutrophils Percent Auto 55.4 % (50-75); Platelet Count 183 X10^3/uL (150-400); Red Blood Cell Count 4.41 X10^6/uL (4.0-5.2); Red Cell Distribution Width 12.6 % (11.6-14.8); White Blood Cell Count 5.5 X10^3/uL (4.5-11.0)
[2020-06-09 15:07] LABS: INR 1.1 (0.9-1.3); Prothrombin Time 12.4 SECONDS (10.1-12.7)
[2020-06-09 15:10] LABS: PTT Partial Thromboplastin Tim 46 SECONDS (26.4-36.2)
[2020-06-09 15:11] LABS: Alanine Aminotransferase 16 IU/L (<35); Albumin Globulin Ratio 1.2 (1.0-2.8); Alkaline Phosphatase 91 U/L (38-126); Aspartate Aminotransferase 22 IU/L (14-36); BUN Creatinine Ratio 21.7 (6-22); Bilirubin Total 0.3 mg/dL (0.2-1.3); Blood Urea Nitrogen 18 mg/dL (7-17); Carbon Dioxide 30 mmol/L (22-32); Chloride 106 mmol/L (98-107); Creatine Kinase 31 U/L (30-135); Estimated Glomerular Filt Rate > 60.0 mL/min (>60); Globulin 3.4 g/dL (1.7-4.1); Glucose 92 mg/dL (70-100); HEMOLYSIS < 15 (0-50); Lipase 78 U/L (23-300); Potassium 4.3 mmol/L (3.4-5.1); Sodium 138 mmol/L (137-145); Total Protein 7.4 g/dL (6.3-8.2)
[2020-06-09 15:23] LABS: Troponin I < 0.012 ng/mL (0.01-0.034)
--- NOTE | 2020-06-09 15:41 | ED.EXTPRO ---
HPI - Extremity Problem General Chief complaint: Extremity Problem,Nontraumatic Stated complaint: hx of blood clots/right leg pain x1 day Time Seen by Provider: 06/09/20 15:30 Source: patient and family (boyfriend at bedside) Mode of arrival: Wheelchair Limitations: no limitations History of Present Illness HPI Narrative: This is a 49-year-old female who comes in with complaint of right leg pain in her right thigh, radiating towards the buttock. Patient also has some inner thigh discomfort. She states she has some numbness in her lower extremity but has noted some increased pain patient states she also noted her right calf has felt swollen and full similar to when she had a DVT in the lower extremity. Patient has had multiple DVTs and pulmonary emboli. She had breast cancer which she has completed treatment for and had a bilateral mastectomy. She ultimately had an umbrella or IVC filter placed they did attempted to move it in January but there were complications with 3 attempts to remove it and ultimately it was ?rebuilt? and the plan is to leave in place permanently. Patient denies any fevers or chills. No chest pain or pressure. She does have some shortness of breath when she exerts herself or goes up stairs but states this is not been continuously progressive. She states that she was started on a beta-kit for this specifically which has been helpful. She occasionally has mild nausea, no vomiting she can be constipated but has a bowel movement every couple days. She did have some blood in her stool and has a swallow eval tomorrow for. No urinary issues. She does know a year ago she had discomfort coloration her left lower extremity and was noted to have a blood clot in her left leg at that time. She is not appreciating new or worsening symptoms in her left lower extremity. She is on Lovenox 100 mg twice daily and states that she has not had any missed doses. Related Data Home Medications Medication Instructions Recorded Confirmed fluticasone propionate 50 1 spray NASAL DAILY 09/24/18 06/03/20 mcg/actuation nasal spray,suspension acetaminophen 500 mg tablet 500 mg PO TID tab 02/19/19 06/03/20 enoxaparin 100 mg/mL subcutaneous 100 mg SUBCUT Q12H 07/24/19 06/03/20 syringe Previous Rx's Medication Instructions Recorded pregabalin 25 mg capsule 75 mg PO DAILY #270 cap 09/20/19 midodrine 2.5 mg tablet 2.5 mg PO ONCE #90 tab 12/09/19 pregabalin 150 mg capsule 150 mg PO BID #180 cap 12/09/19 albuterol sulfate 90 mcg/actuation 2 inh INHALATION Q4-6H PRN #1 ea 03/18/20 breath activated powder inhaler fluticasone propionate 50 1 spray INTRANASAL DAILY #9.9 ml 03/18/20 mcg/actuation nasal spray,suspension hydroxyzine pamoate 50 mg capsule 50 mg PO QID PRN #90 cap 03/18/20 propranolol 10 mg tablet 10 mg PO DAILY #60 tab 03/18/20 alprazolam 0.25 mg tablet 0.25 mg PO BID #30 tab 05/11/20 duloxetine 60 mg capsule,delayed 60 mg PO BID #180 cap 05/11/20 release omeprazole 20 mg capsule,delayed 20 mg PO DAILY #14 cap 05/11/20 release oxycodone 5 mg tablet 5 mg PO Q8H PRN #30 tab 05/12/20 Allergies Allergy/AdvReac Type Severity Reaction Status Date / Time levofloxacin [From Levaquin] AdvReac Severe Anxiety, Verified 06/03/20 14:25 heartburn, insomnia Penicillins AdvReac Severe Very high Verified 06/03/20 14:25 fever - had to be placed in an ice bath Review of Systems Review of Systems ROS Unobtainable: All systems reviewed & are unremarkable except as noted in HPI and below Patient History Medical History Abnormal Pap smear of cervix Allergies Anemia Anterior to posterior tear of superior glenoid labrum of left shoulder Anxiety Asthma Bilateral pulmonary embolism Carpal tunnel syndrome Chronic left shoulder pain Depression with anxiety Dizziness Ductal carcinoma in situ (DCIS) of breast Family history of blood clots History of pulmonary embolism History of recent hemorrhage Hx of hepatic failure Hypotension Incomplete rotator cuff tear Kidney stones Knee osteoarthritis Left hip pain Left leg pain Left leg swelling Neck pain Ovarian cyst Pain Pain of right scapula Paresthesia of right foot Presence of IVC filter Right leg DVT Shortness of breath Strep pharyngitis Superficial thrombophlebitis of left upper extremity Transient left leg weakness Upper extremity somatic dysfunction Vertigo Visual disturbances Surgical History H/O bilateral mastectomy H/O LEEP History of arthroscopy of left knee S/P insertion of IVC (inferior vena caval) filter Status post arthroscopic knee surgery Status post Status post cholecystectomy Status post mastectomy Status post tubal ligation Family History Father Stroke Hypertension Mother No significant medical problems Grandfather Hypertension Stroke Grandmother Breast cancer Social History marital status: unknown household members: friend(s) and other Smoking Status: Never smoker alcohol intake: current substance use type: does not use Smoking Status: Never smoker alcohol intake frequency: holidays/special occasions only Substance Use Type: does not use Exam Narrative Exam Narrative: GENERAL: Alert and oriented x three, well-nourished female in mild distress. HEENT: Head normocephalic, atraumatic, EOMI, pupils reactive, face symmetric, moist mucous membranes NECK: Supple, full range of motion CARDIOVASCULAR: Regular rate and rhythm without murmurs, rubs or gallops. RESPIRATORY: Breath sounds equal bilaterally, no wheezes rales or rhonchi. ABDOMEN: Soft, nontender. Normoactive bowel sounds all 4 quadrants. No guarding or rebound, rigidity, no mass : No CVA tenderness EXTREMITIES: Normal range of motion, no clubbing or edema appreciated. Neurovascularly intact NEUROLOGICAL: Cranial nerves II through XII grossly intact. Moving all extremities SKIN: Warm, dry, no petechiae, no rashes or lesions. Initial Vital Signs Initial Vital Signs: Vital Signs Temperature 97.4 F L 06/09/20 13:55 Pulse Rate 93 H 06/09/20 13:55 Respiratory Rate 20 06/09/20 13:55 Blood Pressure 121/78 06/09/20 13:55 Pulse Oximetry 100 06/09/20 13:55 Course Orders Ordered: ED Orders 06/09/20 14:07 EKG-12 Lead Stat 06/09/20 14:39 US periph venous low extrem rt Stat 06/09/20 14:50 Complete Blood Count AUTO DIFF Stat Comprehensive Metabolic Panel Stat Lipase Stat Partial Thromboplastin Time Stat Prothrombin Time INR Stat Troponin & CK Cardiac Panel Stat Vital Signs Vital signs: Vital Signs - 8 hr 06/09/20 13:55 06/09/20 16:00 Temperature 97.4 F L Pulse Rate 93 H 83 Respiratory Rate 20 16 Blood Pressure 121/78 116/77 Pulse Oximetry 100 99 MDM - Extremity (Nontraumatic) Lab Data Result diagrams: 06/09/20 14:50 06/09/20 14:50 Labs: Lab Results 06/09/20 06/09/20 06/09/20 Range/Units 14:50 14:50 14:50 WBC 5.5 (4.5-11.0) X10^3/uL RBC 4.41 (4.0-5.2) X10^6/uL Hgb 13.4 (12.0-16.0) g/dL Hct 39.0 (36-46) % MCV 88.5 (80-100) fL MCH 30.3 (26-34) PG MCHC 34.2 (30-36) % RDW 12.6 (11.6-14.8) % Plt Count 183 (150-400) X10^3/uL Neut % (Auto) 55.4 (50-75) % Lymph % (Auto) 29.0 (25-40) % Canadian % (Auto) 7.7 (3-14) % Eos % (Auto) 7.2 H (2-4) % Baso % (Auto) 0.7 (0-2) % Neut # (Auto) 3100 (9549-3120) /uL Lymph # (Auto) 1600 (4447-4776) /uL Canadian # (Auto) 400 (0-900) /uL Eos # (Auto) 400 (0-450) /uL Baso # (Auto) 0 (0-100) /uL PT 12.4 (10.1-12.7) SECONDS INR 1.1 (0.9-1.3) APTT 46 H D (26.4-36.2) SECONDS Sodium 138 (137-145) mmol/L Potassium 4.3 (3.4-5.1) mmol/L Chloride 106 (98-107) mmol/L Carbon Dioxide 30 (22-32) mmol/L BUN 18 H (7-17) mg/dL Creatinine 0.83 (0.52-1.04) mg/dL Estimated GFR > 60.0 (>60) mL/min BUN/Creatinine Ratio 21.7 (6-22) Glucose 92 (70-100) mg/dL Calcium 10.0 (8.4-10.2) mg/dL Total Bilirubin 0.3 (0.2-1.3) mg/dL AST 22 (14-36) IU/L ALT 16 (<35) IU/L Alkaline Phosphatase 91 (38-126) U/L Total Creatine Kinase 31 (30-135) U/L CK-MB (CK-2) TNP CK-MB (CK-2) Rel Index TNP Troponin I < 0.012 (0.01-0.034) ng/mL Total Protein 7.4 (6.3-8.2) g/dL Albumin 4.0 (3.5-5.0) g/dL Globulin 3.4 (1.7-4.1) g/dL Albumin/Globulin Ratio 1.2 (1.0-2.8) Lipase 78 (23-300) U/L Imaging Data US - DVT: Radiologist's Impression: Aggie Tavarez 49 F [address] [id number] ReportSigned Patient: Aggie Tavarez LMR#: [id number]: [id number]:[id number]/Sex: 49 / FDate of Service: 06/09/20Loc: EDAccession Number: [id number] Procedure: US periph venous low extrem rt Ordering Provider: Radha Hlal D.O. PROCEDURE: US PERIPH VENOUS LOW EXTREM RT INDICATIONS: PAIN TECHNIQUE: Real-time imaging, as well as color and pulse Doppler interrogation, were performed of the lower extremity deep veins from the inguinal ligament to the popliteal fossa. COMPARISON: None. FINDINGS: The common femoral, femoral and popliteal veins are normally compressible, and free of intraluminal thrombus. Color and pulse Doppler demonstrate normal phasic intraluminal flow. There is normal augmentation response to distal compression maneuver. IMPRESSION: No sonographic evidence of DVT. Dictated by: Wilfrid Lewis M.D. on 06/09/2020 at 15:19 Approved by: Wilfrid Lewis M.D. on 06/09/2020 at 15:19 ECG Data Attestation EKG: I personally reviewed and interpreted this ECG as follows: Prior ECG tracings: available for review Interpretation: NSR, rate of 72, pr of 180, qrs of 74, qtc 392. NO ST changes appreciated. 03.12.19 EKG shows similar changes. MDM Narrative Medical decision making narrative: This is a 49-year-old female who arrives with complaint of extremity pain, history of blood clots in multiple extremities and pulmonary emboli on Lovenox twice daily. Patient states she has had some increased discomfort in her right lower extremity which is consistent with when she had prior DVT in that extremity. Ultrasound today is negative, she is on Lovenox subQ twice daily with no new changes or missed doses and an IVC filter. Her labs that would cause her symptoms. Discussed with patient low threshold to return if she has any new or worsening symptoms. Discharge Plan Departure Patient Disposition: Home Clinical Impression: Leg pain, right Activity Restrictions/Additional Instructions: Follow with your physician at your appointment tomorrow. Also follow-up for your swallow evaluation tomorrow. Continue home medications as prescribed including your Lovenox. Return the ER for any new worse worsening swelling, chest pain, shortness of breath, passing out or lightheadedness, symptoms similar to her prior blood clots or any new or concerning symptoms. Prescriptions: No Action oxycodone 5 mg tablet 5 mg PO Q8H PRN (Reason: pain) Qty: 30 RF: 0 fluticasone propionate 50 mcg/actuation spray,suspension 1 spray NASAL DAILY RF: 0 pregabalin 25 mg capsule 75 mg PO DAILY Qty: 270 RF: 3 hydroxyzine pamoate 50 mg capsule 50 mg PO QID PRN (Reason: Anxiety or insomnia) Qty: 90 RF: 2 albuterol sulfate 90 mcg/actuation aerosol powdr breath activated 2 inh INHALATION Q4-6H PRN (Reason: Shortness Of Breath) Qty: 1 RF: 3 fluticasone propionate [Flonase Allergy Relief] 50 mcg/actuation spray,suspension 1 spray intranasal DAILY Qty: 9.9 RF: 3 propranolol 10 mg tablet 10 mg PO DAILY Qty: 60 RF: 1 acetaminophen [Tylenol Extra Strength] 500 mg tablet 500 mg PO TID RF: 0 enoxaparin [Lovenox] 100 mg/mL syringe 100 mg SUBCUT Q12H RF: 0 pregabalin 150 mg capsule 150 mg PO BID Qty: 180 RF: 3 midodrine 2.5 mg tablet 2.5 mg PO ONCE Qty: 90 RF: 1 Hold Instructions: per providers duloxetine 60 mg capsule,delayed release(DR/EC) 60 mg PO BID Qty: 180 RF: 3 alprazolam 0.25 mg tablet 0.25 mg PO BID Qty: 30 RF: 0 omeprazole 20 mg capsule,delayed release(DR/EC) 20 mg PO DAILY Qty: 14 RF: 2 Referrals: Mary Ann Gaspar ARNP [Primary Care Provider] -
[2020-06-09 16:00] VITALS: BP 116/77; PULSE 83; RESP 16; O2SAT 99
== END 2020-06-09 16:20 | disposition home or self-care (01) ==
PROVIDERS: Emergency Provider Emergency Medicine; PCP Nurse Practitioner
DX: M79.604 Pain in right leg (principal); R20.0 Anesthesia of skin; R11.0 Nausea; Z86.718 Personal history of other venous thrombosis and embolism; Z86.711 Personal history of pulmonary embolism
CPT/HCPCS: 36415; 80053; 82550; 83690; 84484; 85025; 85610; 85730; 93005; 93010; 93971; 99283; 99284

== ENCOUNTER → 2020-06-10 10:40 | Outpatient (CLI) | payer OTHER, MEDICAID, SELFPAY ==
[2020-05-11 13:16] VITALS: BMI 35.0
--- NOTE | 2020-06-10 10:42 | DI.RAD.S_ITS ---
PROCEDURE: FL BARIUM SWALLOW INDICATIONS: dysphagia. black stool COMPARISON: None. FINDINGS: Function: Small tertiary contraction waves noted in the distal esophagus. No elicited gastroesophageal reflux. There is normal transit of a calibrated barium tablet through the esophagus into the stomach. Morphology: Air-contrast images demonstrate normal mucosal morphology. Single contrast views show no esophageal strictures, extrinsic mass effects, or diverticula. Limited images of the stomach demonstrate normal appearance. IMPRESSION: 1. Mild distal esophageal dysmotility. 2. Otherwise, normal esophagram. Dictated by: Adriana Lee MD, PhD on 06/10/2020 at 11:44 Approved by: Adriana Lee MD, PhD on 06/10/2020 at 11:45
== END ==
PROVIDERS: PCP Nurse Practitioner; Referring Provider Specialist; Visit Provider Specialist
DX: R13.10 Dysphagia, unspecified (principal); K22.4 Dyskinesia of esophagus; Z87.19 Personal history of other diseases of the digestive system
CPT/HCPCS: 74220

== ENCOUNTER → 2020-10-05 14:12 | Outpatient (CLI) | payer OTHER, MEDICAID, SELFPAY ==
[2020-06-17 15:29] VITALS: BMI 35.0
--- NOTE | 2020-10-05 14:14 | DI.US.S_ITS ---
ULTRASOUND OF LEFT BREAST AND AXILLA: 10/05/2020 CLINICAL: Followup on Axillary lymph node. Comparison is made to exams dated: 06/01/2020 ultrasound, 06/01/2020 breast MRI, 08/23/2019 ultrasound - [facility], 06/12/2019 ultrasound, and 05/23/2019 breast MRI - [facility]. CT chest 02/06/2019. Color flow and real-time ultrasound of the left breast axilla were performed. [place] scale images of the real-time examination were reviewed. There is a 2 cm x 0.9 cm x 0.5 cm enlarged lymph node with a circumscribed margin in the left axilla. Cortex measures 0.2 cm and is not thickened. This enlarged lymph node displays fatty hilum. This abnormality is not significantly changed and correlates with breast MRI findings. Color flow imaging demonstrates that there is vascularity present. Prior bilateral mastectomy. IMPRESSION: PROBABLY BENIGN Enlarged lymph node in the left axilla is stable in appearance. No cortical thickening. This is probably benign. A follow-up ultrasound in 6 months is recommended to demonstrate stability. Patient expresses concern and anxiety related to this finding. Ultrasound guided biopsy and or surgical excision could be preformed if clinically indicated. Exam findings were conveyed to the patient. Patient is advised to monitor for significant change. Clinical follow-up is recommended. This exam was interpreted at Station ID: [id number]. Electronically Signed By: Servando Fenton M.D. slc/:10/05/2020 16:41:04 letter sent: Clinical Evaluation Ultrasound BI-RADS: 3 Probably benign
--- NOTE | 2020-10-05 14:15 | DI.US.S_ITS ---
PROCEDURE: US EXTREMITY NONVASC LOWER LT INDICATIONS: LEFT BREAST/CALF MASS TECHNIQUE: Real-time scanning was performed of the posterior mid calf. , with image documentation. COMPARISON: None. FINDINGS: There is a fluid-filled structure with multiple septations in the sagittal mid calf measuring 1.6 x 1.1 x 1.1 cm. There is no internal vascularity. The surrounding tissue is edematous. There is a hypoechoic tract extending towards the skin. IMPRESSION: Septated fluid-filled structure in the left calf measuring 1.6 x 1.1 x 1.1. Differential diagnosis includes a hematoma or abscess. Please correlate with other clinical history and physical exam findings. Dictated by: Edilson Steward M.D. on 10/05/2020 at 15:50 Approved by: Edilson Steward M.D. on 10/05/2020 at 15:55
== END ==
PROVIDERS: PCP Nurse Practitioner; Referring Provider Nurse Practitioner; Visit Provider Nurse Practitioner
DX: R59.0 Localized enlarged lymph nodes; R22.42 Localized swelling, mass and lump, left lower limb; Z90.13 Acquired absence of bilateral breasts and nipples
CPT/HCPCS: 76882

== ENCOUNTER → 2021-01-27 13:42 | Outpatient (CLI) | payer OTHER, MEDICAID, SELFPAY ==
[2021-01-14 16:33] VITALS: BMI 35.0
[2021-01-27 14:10] LABS: Add Manual Diff / Slide Review NO; Basophils Absolute Auto 0 /uL (0-100); Basophils Percent Auto 0.7 % (0-2); Eosinophils Absolute Auto 200 /uL (0-450); Eosinophils Percent Auto 4.5 % (2-4); Hematocrit 42.4 % (36-46); Hemoglobin 14.2 g/dL (12.0-16.0); Lymphocytes Absolute Auto 1500 /uL (1100-4500); Lymphocytes Percent Auto 28.2 % (25-40); Mean Corpuscular HGB Conc 33.4 % (30-36); Mean Corpuscular Hemoglobin 29.5 PG (26-34); Mean Corpuscular Volume 88.3 fL (80-100); Monocytes Absolute Auto 400 /uL (0-900); Neutrophils Absolute Auto 3100 /uL (1500-7000); Neutrophils Percent Auto 58.6 % (50-75); Platelet Count 210 X10^3/uL (150-400); Red Cell Distribution Width 13.6 % (11.6-14.8); White Blood Cell Count 5.2 X10^3/uL (4.5-11.0)
[2021-01-27 14:20] LABS: Hemoglobin A1C% w Est Avg Glu 4.7 % (4.0-6.0)
[2021-01-27 14:23] LABS: Alanine Aminotransferase 20 IU/L (<35); Albumin 4.6 g/dL (3.5-5.0); Albumin Globulin Ratio 1.5 (1.0-2.8); Alkaline Phosphatase 110 U/L (38-126); Aspartate Aminotransferase 25 IU/L (14-36); BUN Creatinine Ratio 20.8 (6-22); Bilirubin Total 0.6 mg/dL (0.2-1.3); Blood Urea Nitrogen 20 mg/dL (7-17); Calcium 10.6 mg/dL (8.4-10.2); Carbon Dioxide 31 mmol/L (22-32); Chloride 102 mmol/L (98-107); Estimated Glomerular Filt Rate > 60.0 mL/min (>60); Globulin 3.1 g/dL (1.7-4.1); Glucose 89 mg/dL (70-100); HEMOLYSIS < 15 (0-50); Potassium 4.9 mmol/L (3.4-5.1); Sodium 139 mmol/L (137-145); Total Protein 7.7 g/dL (6.3-8.2)
[2021-01-27 14:39] LABS: Free T3, Triiodothyronine Free 3.85 pg/mL (2.77-5.27); Free T4, Direct Thyroxine 1.21 ng/dL (0.78-2.19)
[2021-01-27 14:53] LABS: Thyroid Stimulating Hormone 0.495 uIU/mL (0.47-4.68)
== END ==
PROVIDERS: PCP Nurse Practitioner; Referring Provider Nurse Practitioner; Visit Provider Nurse Practitioner
DX: J03.00 Acute streptococcal tonsillitis, unspecified (principal); J35.01 Chronic tonsillitis; R06.02 Shortness of breath; R53.83 Other fatigue; Z13.1 Encounter for screening for diabetes mellitus; Z79.01 Long term (current) use of anticoagulants; Z86.2 Personal history of diseases of the blood and blood-forming organs and certain disorders involving the immune mechanism
CPT/HCPCS: 36415; 80053; 83036; 84439; 84443; 84481; 85025

== ENCOUNTER 2021-02-09 21:21 | Observation (INO) | payer OTHER, MEDICAID, SELFPAY ==
[2021-01-14 16:33] VITALS: BMI 35.0
[2021-02-09] VITALS (11 sets, daily range): BP systolic 99–116; BP diastolic 50–58; PULSE 73–94; RESP 14–24; TEMP 36.1; O2SAT 93–99; BMI 38.2
--- NOTE | 2021-02-09 21:40 | ED.GENADULT ---
HPI - General Adult General Chief complaint: Chest Pain Stated complaint: Chest Discomfort Time Seen by Provider: 02/09/21 21:34 History of Present Illness HPI narrative: 50-year-old woman presents with worsening exertional dyspnea and chest pain. Yesterday she had some intermittent chest pain and today was somewhat worse this morning she went up and down stairs twice a day and had the worst chest pain she has experienced rating it a 10/10 with associated flushing, diaphoresis dizziness, nausea and worsening of her baseline exertional dyspnea. 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 and has a permanent [place] filter in place. At 1 point with attempts to remove the filter she apparently had significant blood will loss and subsequent myocardial infarction. Additional problems include asthma, anxiety and depression Covid in 11/11 and she currently is working with [employer] for full disability. She denies recent fevers, cough, headaches, vision changes, weight loss or gain, abdominal pain vomiting or diarrhea. No recent extremity edema to suggest new extremity DVT. Related Data Home Medications Medication Instructions Recorded Confirmed acetaminophen 500 mg tablet 500 mg PO TID tab 02/19/19 01/27/21 (Tylenol Extra Strength) enoxaparin 100 mg/mL subcutaneous 100 mg SUBCUT Q12H 07/24/19 02/10/21 syringe (Lovenox) duloxetine 30 mg capsule,delayed 30 mg PO BID 02/10/21 02/10/21 release Previous Rx's Medication Instructions Recorded midodrine 2.5 mg tablet 2.5 mg PO ONCE #90 tab 12/09/19 albuterol sulfate 90 mcg/actuation 2 inh INHALATION Q4-6H PRN #1 ea 03/18/20 breath activated powder inhaler duloxetine 60 mg capsule,delayed 60 mg PO BID #180 cap 05/11/20 release omeprazole 20 mg capsule,delayed 20 mg PO DAILY #90 cap 06/10/20 release pregabalin 50 mg capsule 50 mg PO DAILY #90 cap 06/10/20 propranolol 20 mg tablet 20 mg PO DAILY #90 tab 07/08/20 clobetasol 0.05 % topical ointment 1 applic TOPICAL BID PRN 14 Days 10/05/20 #30 g Disabled Parking Permit See Rx Instructions .ROUTE 10/19/20 .COMPLEX #1 unit hydroxyzine pamoate 50 mg capsule See Rx Instructions .ROUTE 12/18/20 .COMPLEX #90 cap pregabalin 150 mg capsule 150 mg PO BID #180 cap 12/18/20 fluticasone propionate 50 See Rx Instructions .ROUTE 12/29/20 mcg/actuation nasal .COMPLEX #16 gram spray,suspension diazepam 5 mg tablet 5 mg PO BID PRN #2 tab 01/27/21 fluticasone furoate 100 1 inh INHALATION Q24H #28 ea 01/27/21 mcg-vilanterol 25 mcg/dose inhalation powder (Breo Ellipta) tramadol 50 mg tablet 50 mg PO BID PRN 30 Days #30 tab 01/27/21 Allergies Allergy/AdvReac Type Severity Reaction Status Date / Time levofloxacin [From Levaquin] AdvReac Severe Anxiety, Verified 01/27/21 12:16 heartburn, insomnia Penicillins AdvReac Severe Very high Verified 01/27/21 12:16 fever - had to be placed in an ice bath Review of Systems Review of Systems Narrative: Remainder of complete review of systems is otherwise unremarkable except for that included in the HPI. Patient History Medical History (Updated 02/10/21 @ 00:36 by Unique Moeller MD) Abnormal Pap smear of cervix Allergies Anemia Anterior to posterior tear of superior glenoid labrum of left shoulder Anxiety Asthma Blood clotting factor deficiency disorder Carpal tunnel syndrome Chronic streptococcal tonsillitis Depression with anxiety Ductal carcinoma in situ (DCIS) of breast Family history of blood clots History of renal failure Hx of hepatic failure Kidney stones Knee osteoarthritis Left hip pain Mass of left axilla Menopause Neck pain Paresthesia of right foot Presence of IVC filter Shortness of breath Upper extremity somatic dysfunction Surgical History H/O bilateral mastectomy H/O LEEP History of arthroscopy of left knee S/P insertion of IVC (inferior vena caval) filter Status post arthroscopic knee surgery Status post Status post cholecystectomy Status post mastectomy Status post tubal ligation Family History Father Stroke Hypertension Mother No significant medical problems Grandfather Hypertension Stroke Grandmother Breast cancer Social History marital status: unknown household members: friend(s) and other Smoking Status: Never smoker alcohol intake: current substance use type: does not use Smoking Status: Never smoker alcohol intake frequency: holidays/special occasions only Substance Use Type: does not use Exam Narrative Exam Narrative: General: pale but in no acute distress. Able to give a complete and coherent history. Well-nourished well-developed HEENT: Moist mucous membranes, normal sclera with reactive pupils, Neck: No JVD, supple Respiratory: Lungs are clear to auscultation, no wheezing no rales no rhonchi. Full and symmetrical air movement Cardiac: Regular rate and rhythm no murmurs no bruits Chest: Bilateral mastectomy Abdomen: Soft, nontender, good bowel tones, no flank pain Skin: Pale but otherwise Warm and dry, no rashes Neurologic: globally weak but Grossly neurologically intact with no obvious asymmetries or abnormalities Extremities: No trauma, well perfused Psych: Cooperative, appropriate insight and affect Initial Vital Signs Initial Vital Signs: Vital Signs Temperature 97.0 F L 02/09/21 21:30 Pulse Rate 78 02/09/21 21:30 Respiratory Rate 14 02/09/21 21:30 Blood Pressure 116/58 L 02/09/21 21:30 Pulse Oximetry 99 02/09/21 21:30 Course Orders Ordered: ED Orders 02/09/21 21:30 COVID19 -Nasal swab/Pre-Proc Stat 02/09/21 21:42 XR chest 1V Stat EKG-12 Lead Stat 02/09/21 21:50 Complete Blood Count AUTO DIFF Stat Comprehensive Metabolic Panel Stat D Dimer Stat Lipase Stat Troponin & CK Cardiac Panel Stat 02/09/21 22:46 CT angio chest PE protocol Stat 02/10/21 00:16 Troponin I Stat Enoxaparin Sodium (Enoxaparin 100 Mg/Ml Syringe) 100 mg SUBCUT BID MILENA Last Admin: 02/09/21 21:58 Dose: 100 mg Documented by: RUBI Sodium Chloride (Normal Saline 0.9%) 1,000 mls @ 150 mls/hr IV CONT MILENA Last Infusion: 02/10/21 01:24 Dose: 150 mls/hr Documented by: Admin: 02/09/21 21:57 Dose: 150 mls/hr Documented by: RUBI Nitroglycerin (Nitroglycerin 0.4 Mg Sl Tab) 0.4 mg SL [id number] PRN PRN Reason: Chest Pain Last Admin: 02/09/21 21:58 Dose: 0.4 mg Documented by: RUBI Discontinued Medications Aspirin (Aspirin 81 Mg Chew Tab) 324 mg PO NOW ONE Stop: 02/09/21 21:50 Last Admin: 02/09/21 21:58 Dose: 324 mg Documented by: RUBI Vital Signs Vital signs: Vital Signs - 8 hr 02/09/21 21:30 02/09/21 21:48 02/09/21 22:00 Temperature 97.0 F L Pulse Rate 78 76 76 Respiratory Rate 14 24 19 Blood Pressure 116/58 L Pulse Oximetry 99 99 96 02/09/21 22:05 02/09/21 22:10 02/09/21 22:15 Temperature Pulse Rate 78 94 H 82 Respiratory Rate 20 22 21 Blood Pressure 110/56 L 100/52 L 102/53 L Pulse Oximetry 98 95 94 02/09/21 22:20 02/09/21 22:25 02/09/21 22:30 Temperature Pulse Rate 80 84 84 Respiratory Rate 16 17 18 Blood Pressure 105/54 L 99/50 L 102/52 L Pulse Oximetry 94 94 93 02/09/21 23:05 02/09/21 23:30 02/10/21 00:00 Temperature Pulse Rate 85 73 72 Respiratory Rate 14 17 Blood Pressure Pulse Oximetry 98 95 94 02/10/21 00:30 Temperature Pulse Rate 72 Respiratory Rate 17 Blood Pressure Pulse Oximetry 96 Medical Decision Making Lab Data Result diagrams: 02/09/21 21:50 02/09/21 21:50 Labs: Lab Results 02/09/21 02/09/21 02/09/21 Range/Units 21:30 21:50 21:50 WBC 5.6 (4.5-11.0) X10^3/uL RBC 4.41 (4.0-5.2) X10^6/uL Hgb 13.0 (12.0-16.0) g/dL Hct 38.4 (36-46) % MCV 87.1 (80-100) fL MCH 29.5 (26-34) PG MCHC 33.9 (30-36) % RDW 13.4 (11.6-14.8) % Plt Count 195 (150-400) X10^3/uL Neut % (Auto) 51.8 (50-75) % Lymph % (Auto) 33.9 (25-40) % [place] % (Auto) 9.1 (3-14) % Eos % (Auto) 4.4 H (2-4) % Baso % (Auto) 0.8 (0-2) % Neut # (Auto) 2900 (6902-3276) /uL Lymph # (Auto) 1900 (4042-3368) /uL [place] # (Auto) 500 (0-900) /uL Eos # (Auto) 200 (0-450) /uL Baso # (Auto) 0 (0-100) /uL D-Dimer (<230) ng/mL Sodium 142 (137-145) mmol/L Potassium 4.2 (3.4-5.1) mmol/L Chloride 106 (98-107) mmol/L Carbon Dioxide 31 (22-32) mmol/L BUN 18 H (7-17) mg/dL Creatinine 0.90 (0.52-1.04) mg/dL Estimated GFR > 60.0 (>60) mL/min BUN/Creatinine Ratio 20.0 (6-22) Glucose 78 (70-100) mg/dL Calcium 9.8 (8.4-10.2) mg/dL Total Bilirubin 0.3 (0.2-1.3) mg/dL AST 25 (14-36) IU/L ALT 18 (<35) IU/L Alkaline Phosphatase 103 (38-126) U/L Total Creatine Kinase 35 (30-135) U/L CK-MB (CK-2) TNP CK-MB (CK-2) Rel Index TNP Troponin I < 0.012 (0.01-0.034) ng/mL Total Protein 7.1 (6.3-8.2) g/dL Albumin 4.0 (3.5-5.0) g/dL Globulin 3.1 (1.7-4.1) g/dL Albumin/Globulin Ratio 1.3 (1.0-2.8) Lipase 70 (23-300) U/L SARS-CoV-2 (PCR) Positive H (Negative) 02/09/21 02/10/21 Range/Units 21:50 00:16 WBC (4.5-11.0) X10^3/uL RBC (4.0-5.2) X10^6/uL Hgb (12.0-16.0) g/dL Hct (36-46) % MCV (80-100) fL MCH (26-34) PG MCHC (30-36) % RDW (11.6-14.8) % Plt Count (150-400) X10^3/uL Neut % (Auto) (50-75) % Lymph % (Auto) (25-40) % [place] % (Auto) (3-14) % Eos % (Auto) (2-4) % Baso % (Auto) (0-2) % Neut # (Auto) (4395-8958) /uL Lymph # (Auto) (3563-9241) /uL [place] # (Auto) (0-900) /uL Eos # (Auto) (0-450) /uL Baso # (Auto) (0-100) /uL D-Dimer 413 H (<230) ng/mL Sodium (137-145) mmol/L Potassium (3.4-5.1) mmol/L Chloride (98-107) mmol/L Carbon Dioxide (22-32) mmol/L BUN (7-17) mg/dL Creatinine (0.52-1.04) mg/dL Estimated GFR (>60) mL/min BUN/Creatinine Ratio (6-22) Glucose (70-100) mg/dL Calcium (8.4-10.2) mg/dL Total Bilirubin (0.2-1.3) mg/dL AST (14-36) IU/L ALT (<35) IU/L Alkaline Phosphatase (38-126) U/L Total Creatine Kinase (30-135) U/L CK-MB (CK-2) CK-MB (CK-2) Rel Index Troponin I < 0.012 (0.01-0.034) ng/mL Total Protein (6.3-8.2) g/dL Albumin (3.5-5.0) g/dL Globulin (1.7-4.1) g/dL Albumin/Globulin Ratio (1.0-2.8) Lipase (23-300) U/L SARS-CoV-2 (PCR) (Negative) Imaging Data CT scan - chest: Radiologist's Impression: FINDINGS:? Image quality:? Excellent.? ? Pulmonary arteries:? Pulmonary arteries are normal in size, and demonstrate no intraluminal filling defects to suggest central pulmonary embolism.? ? Lungs and pleura:? Minor left lung base atelectatic change in the costophrenic sulcus.? Lungs are otherwise clear.? No pleural effusions or pneumothorax.? Central and peripheral airways are patent.? Mild bilateral bronchial wall thickening. ? Mediastinum:? Heart size is normal, with a very small pericardial effusion.? Mild confluent bilateral hilar adenopathy.? No mediastinal adenopathy.? Thoracic aorta is normal in caliber and enhancement.? Esophagus is normal in caliber, without hiatal hernia.? ? Bones and chest wall:? No suspicious bony lesions.? Ribs and thoracic spine appear intact throughout.? Thyroid gland is normal.? No axillary or supraclavicular adenopathy.? ? Abdomen:? The spleen is enlarged measuring 14.1 cm in AP diameter, minimally increased compared to prior.? Partially imaged IVC filter is seen.? The upper abdomen is otherwise normal.? ? IMPRESSION:? 1. No pulmonary embolus. 2. Minimal left lung base atelectasis.? No other pulmonary parenchymal changes to suggest acute viral pneumonia. 3. Bilateral bronchial wall thickening suggesting bronchitis. 4. Very small pericardial effusion, new. 5. Mild confluent bilateral hilar adenopathy, potentially reactive to known but CT occult viral pneumonia? ? ? Dictated by: Karyn Bennett M.D. on 02/09/2021 at 23:28 ? ? Chest x-ray: Radiologist's Impression: FINDINGS:? ? Surgical changes and devices:? Surgical clips project over breast tissue bilaterally.? Partially imaged IVC filter in place. ? Lungs and pleura:? Lungs are clear.? No pleural effusions or pneumothorax.? ? Mediastinum:? Mediastinal contours appear normal.? Heart size is normal.? ? Bones and chest wall:? No suspicious bony lesions.? Overlying soft tissues appear unremarkable.? ? IMPRESSION:? 1. No acute cardiopulmonary disease. ? ? ? Dictated by: Karyn Bennett M.D. on 02/09/2021 at 22:29 ? ? ECG Data Interpretation: Sinus rhythm at a rate of 75 Normal axis, normal intervals No acute ischemic changes MDM Narrative Medical decision making narrative: 50-year-old woman with complicated medical history including clotting disorder currently on b.i.d. Lovenox, COVID infection October of 2020 with COVID PCR testing remaining positive today, increasing exertional dyspnea with significant chest pain. Unclear if this is cardiac in nature, recurrent pulmonary embolism or complications of recent COVID infection. In recent review with a primary care physician there is discussion of scheduling sestamibi study at some point in the near future but that has not yet been scheduled. Her pain was 10/10 after going up and down the stairs twice this afternoon came down to 5/10 after the initial nitroglycerin given by medics and is currently 0 after single nitroglycerin here in the emergency department. Initial troponin is unremarkable. No evidence of bacterial infection or sepsis. CTA of the chest is ordered. Chest CTA shows no pulmonary embolism but bilateral bronchial wall thickening suggestive of bronchitis at the new small pericardial effusion and bilateral hilar adenopathy. I am wondering if these may be complications of her recent COVID infection. Given the worsening pain the small new pericardial effusion that we admit her overnight for trended troponins, additional observation and echocardiogram tomorrow. She may also benefit from nuclear medicine stress testing. Care is reviewed with Dr. Lutz, hospitalist. Accepted for observation admission. Discharge Plan Departure Patient Disposition: Admitted as Observation Clinical Impression: Chronic anticoagulation, Acute pericardial effusion, COVID-19 long hauler manifesting chronic fatigue Chest pain Qualifiers: Chest pain type: unspecified Qualified Code(s): R07.9 - Chest pain, unspecified Admit Date/Time: 02/10/21 00:44 Admit Provider: Alethea Lutz
--- NOTE | 2021-02-09 21:42 | DI.RAD.S_ITS ---
PROCEDURE: XR CHEST 1V INDICATIONS: chest pain TECHNIQUE: One view of the chest was acquired. COMPARISON: [facility], CR, XR CHEST 1V, 03/12/2019, 15:01. FINDINGS: Surgical changes and devices: Surgical clips project over breast tissue bilaterally. Partially imaged IVC filter in place. Lungs and pleura: Lungs are clear. No pleural effusions or pneumothorax. Mediastinum: Mediastinal contours appear normal. Heart size is normal. Bones and chest wall: No suspicious bony lesions. Overlying soft tissues appear unremarkable. IMPRESSION: 1. No acute cardiopulmonary disease. Dictated by: Karyn Bennett M.D. on 02/09/2021 at 22:29 Approved by: Karyn Bennett M.D. on 02/09/2021 at 22:31
[2021-02-09 21:57] LABS: COVID19 -Nasal RAPID POSITIVE (Negative)
[2021-02-09] MEDS: SODIUM CHLORIDE 0.9% 1,000 ML 150 ML IV (21:57)
[2021-02-09] MEDS: ASPIRIN 81 MG CHEW TAB 324 MG PO (21:58)
[2021-02-09] MEDS: NITROGLYCERIN 0.4 MG SL TAB SL (21:58)
[2021-02-09] MEDS: ENOXAPARIN 100 MG/ML SYRINGE SUBCUT (21:58)
[2021-02-09 22:05] LABS: Add Manual Diff / Slide Review NO; Basophils Absolute Auto 0 /uL (0-100); Basophils Percent Auto 0.8 % (0-2); Eosinophils Absolute Auto 200 /uL (0-450); Eosinophils Percent Auto 4.4 % (2-4); Hematocrit 38.4 % (36-46); Lymphocytes Absolute Auto 1900 /uL (1100-4500); Lymphocytes Percent Auto 33.9 % (25-40); Mean Corpuscular HGB Conc 33.9 % (30-36); Mean Corpuscular Hemoglobin 29.5 PG (26-34); Mean Corpuscular Volume 87.1 fL (80-100); Monocytes Absolute Auto 500 /uL (0-900); Monocytes Percent Auto 9.1 % (3-14); Neutrophils Absolute Auto 2900 /uL (1500-7000); Neutrophils Percent Auto 51.8 % (50-75); Platelet Count 195 X10^3/uL (150-400); Red Blood Cell Count 4.41 X10^6/uL (4.0-5.2); Red Cell Distribution Width 13.4 % (11.6-14.8); White Blood Cell Count 5.6 X10^3/uL (4.5-11.0)
[2021-02-09 22:16] LABS: Alanine Aminotransferase 18 IU/L (<35); Albumin Globulin Ratio 1.3 (1.0-2.8); Alkaline Phosphatase 103 U/L (38-126); Aspartate Aminotransferase 25 IU/L (14-36); Bilirubin Total 0.3 mg/dL (0.2-1.3); Blood Urea Nitrogen 18 mg/dL (7-17); Calcium 9.8 mg/dL (8.4-10.2); Carbon Dioxide 31 mmol/L (22-32); Chloride 106 mmol/L (98-107); Creatine Kinase 35 U/L (30-135); D Dimer 413 ng/mL (<230); Estimated Glomerular Filt Rate > 60.0 mL/min (>60); Globulin 3.1 g/dL (1.7-4.1); Glucose 78 mg/dL (70-100); HEMOLYSIS 22 (0-50); Lipase 70 U/L (23-300); Potassium 4.2 mmol/L (3.4-5.1); Sodium 142 mmol/L (137-145); Total Protein 7.1 g/dL (6.3-8.2)
[2021-02-09 22:28] LABS: Troponin I < 0.012 ng/mL (0.01-0.034)
--- NOTE | 2021-02-09 22:46 | DI.CT.S_ITS ---
PROCEDURE: CT ANGIO CHEST PE PROTOCOL INDICATIONS: Shortness of breath, coagulation disorder, prior PE, chest pain, + Ddimer TECHNIQUE: After the administration of intravenous contrast, 2 mm thick sections acquired from the pulmonary apices to the posterior costophrenic angles. 3-dimensional maximum intensity projection (MIP) coronal and sagittal reformats were then acquired through the thorax. For radiation dose reduction, the following was used: automated exposure control, adjustment of mA and/or kV according to patient size. COMPARISON: [facility], CT, CT ANGIO CHEST PE PROTOCOL, 02/06/2019, 18:30. FINDINGS: Image quality: Excellent. Pulmonary arteries: Pulmonary arteries are normal in size, and demonstrate no intraluminal filling defects to suggest central pulmonary embolism. Lungs and pleura: Minor left lung base atelectatic change in the costophrenic sulcus. Lungs are otherwise clear. No pleural effusions or pneumothorax. Central and peripheral airways are patent. Mild bilateral bronchial wall thickening. Mediastinum: Heart size is normal, with a very small pericardial effusion. Mild confluent bilateral hilar adenopathy. No mediastinal adenopathy. Thoracic aorta is normal in caliber and enhancement. Esophagus is normal in caliber, without hiatal hernia. Bones and chest wall: No suspicious bony lesions. Ribs and thoracic spine appear intact throughout. Thyroid gland is normal. No axillary or supraclavicular adenopathy. Abdomen: The spleen is enlarged measuring 14.1 cm in AP diameter, minimally increased compared to prior. Partially imaged IVC filter is seen. The upper abdomen is otherwise normal. IMPRESSION: 1. No pulmonary embolus. 2. Minimal left lung base atelectasis. No other pulmonary parenchymal changes to suggest acute viral pneumonia. 3. Bilateral bronchial wall thickening suggesting bronchitis. 4. Very small pericardial effusion, new. 5. Mild confluent bilateral hilar adenopathy, potentially reactive to known but CT occult viral pneumonia Dictated by: Karyn Bennett M.D. on 02/09/2021 at 23:28 Approved by: Karyn Bennett M.D. on 02/09/2021 at 23:36
[2021-02-10] VITALS: PULSE 72; RESP 17; O2SAT 94
[2021-02-10 00:30] VITALS: PULSE 72; RESP 17; O2SAT 96
[2021-02-10 00:53] LABS: Troponin I < 0.012 ng/mL (0.01-0.034)
[2021-02-10 01:00] VITALS: PULSE 76; RESP 16; O2SAT 94
[2021-02-10 01:35] VITALS: BP 125/69; PULSE 73; RESP 18; TEMP 36.3; O2SAT 100
[2021-02-10 01:36] VITALS: BMI 39.6
--- NOTE | 2021-02-10 02:26 | PC.NURSE ---
Pt to room 208 via [place] [address] with N95 [address]. Pt able to transfer self from gurney to bed. Skin check and physical assessment performed. O2 sat 100% on RA. VS stable. No hx of falls but Pt bed alarm placed on secondary to admit diagnosis. Pt denies pain, nausea, chest pain, dizziness, or shortness of breath. Oriented Pt to call light, bed controls, tv controls and room. Pt aware that she is to call for assistance as needed. Warm blanket provided for comfort. Pt denies needs at this time and agrees to call for assistance as needed. Denies valuables to place in safe. Personal meds sent to pharmacy for safe storage.
--- NOTE | 2021-02-10 03:07 | PM.HP.1 ---
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 The patient reports she has had rapid heart rate associated with shortness of breath and chest tightness for several weeks to months. It will last 5 minutes then quickly resolved when she is seated. Yesterday she developed chest tightness that was severe 10/10 associated with shortness of breath, nausea, and diaphoresis. The pain lasted 2 hours. Initially it went from 10/10 to 5/10 after medics gave her one nitro. Her chest discomfort completely resolved after the second nitro given in the Emergency Department. Patient was evaluated in the ED and EKG showed no acute STTwave abnormalities, she had 3 troponins all of which are negative. Her D-dimer was elevated [address] angio of the chest. CT angio revealed no pulmonary embolus, minimal left lung atelectasis, bilateral bronchial wall thickening suggesting bronchitis, small pericardial effusion ( new), and mild confluent bilateral hilar adenopathy ? reactive vs. secondary to occult viral pneumonia. Patient does report using her inhaler 3 times daily for her asthma over the last month. She has had no fever, chills, cough, lost of taste or smell. She had a mild headache secondary to the nitro. She is currently pain free. Her pain is not positional and occurs at rest and with activity. Her cardiac risk factors include a clotting disorder, positive family history, but no diabetes, hyperlipidemia, or hypertension. Patient is admitted to the hospital for further evaluation of chest pain. Patient History Medical History Abnormal Pap smear of cervix Allergies Anemia Anterior to posterior tear of superior glenoid labrum of left shoulder Anxiety Asthma Blood clotting factor deficiency disorder Carpal tunnel syndrome Chronic streptococcal tonsillitis Depression with anxiety Ductal carcinoma in situ (DCIS) of breast Family history of blood clots History of renal failure Hx of hepatic failure Kidney stones Knee osteoarthritis Left hip pain Mass of left axilla Menopause Neck pain Paresthesia of right foot Presence of IVC filter Shortness of breath Upper extremity somatic dysfunction Surgical History H/O bilateral mastectomy H/O LEEP History of arthroscopy of left knee S/P insertion of IVC (inferior vena caval) filter Status post arthroscopic knee surgery Status post Status post cholecystectomy Status post mastectomy Status post tubal ligation Family & Social History Family History Father Stroke Hypertension Mother No significant medical problems Grandfather Hypertension Stroke Grandmother Breast cancer Social History: household members significant other,friend(s) Prior Living Arrangements House Safety & Behavioral: Feels Safe in Current Yes Environment Been Physically Hurt or No Threatened By a Person Suicidal Ideation Description None Suicide Plan Description No Plan Tobacco & Substance use: Smoking Status Never smoker alcohol intake current alcohol intake frequency holiday/special occasion Substance Use Type does not use Meds Home Medications and Allergies Home Medications Medication Instructions Recorded Confirmed Type acetaminophen 500 mg tablet 500 mg PO TID tab 02/19/19 02/10/21 History (Tylenol Extra Strength) enoxaparin 100 mg/mL subcutaneous 100 mg SUBCUT Q12H 07/24/19 02/10/21 History syringe (Lovenox) albuterol sulfate 90 mcg/actuation 2 inh INHALATION Q4-6H PRN #1 ea 03/18/20 02/10/21 Rx breath activated powder inhaler omeprazole 20 mg capsule,delayed 20 mg PO DAILY #90 cap 06/10/20 02/10/21 Rx release propranolol 20 mg tablet 20 mg PO DAILY #90 tab 07/08/20 02/10/21 Rx clobetasol 0.05 % topical ointment 1 applic TOPICAL BID PRN 14 Days 10/05/20 02/10/21 Rx #30 g Disabled Parking Permit See Rx Instructions .ROUTE 10/19/20 02/10/21 Rx .COMPLEX #1 unit hydroxyzine pamoate 50 mg capsule See Rx Instructions .ROUTE 12/18/20 02/10/21 Rx .COMPLEX #90 cap pregabalin 150 mg capsule 150 mg PO BID #180 cap 12/18/20 02/10/21 Rx fluticasone propionate 50 See Rx Instructions .ROUTE 12/29/20 02/10/21 Rx mcg/actuation nasal .COMPLEX #16 gram spray,suspension diazepam 5 mg tablet 5 mg PO BID PRN #2 tab 01/27/21 02/10/21 Rx tramadol 50 mg tablet 50 mg PO BID PRN 30 Days #30 tab 01/27/21 02/10/21 Rx duloxetine 30 mg capsule,delayed 30 mg PO BID 02/10/21 02/10/21 History release Allergies Allergy/AdvReac Type Severity Reaction Status Date / Time levofloxacin [From Levaquin] AdvReac Severe Anxiety, Verified 01/27/21 12:16 heartburn, insomnia Penicillins AdvReac Severe Very high Verified 01/27/21 12:16 fever - had to be placed in an ice bath Review of Systems Review of Systems Narrative: 10 point review of systems is negative except as above. She does report a 60 pound weight gain over the last 6 months, she also reports lower extremity edema. She had an attempt of her filter removed in June and July. IT was unsuccessful and she developed excessive bleeding and a resulting myocardial infarction. The filter remains in place. Exam Vital Signs (past 8 hours): - 02/09/21 21:30 02/09/21 21:48 02/09/21 22:00 Temperature 97.0 F L Pulse Rate 78 76 76 Respiratory Rate 14 24 19 Blood Pressure 116/58 L Pulse Oximetry 99 99 96 02/09/21 22:05 02/09/21 22:10 02/09/21 22:15 Temperature Pulse Rate 78 94 H 82 Respiratory Rate 20 22 21 Blood Pressure 110/56 L 100/52 L 102/53 L Pulse Oximetry 98 95 94 02/09/21 22:20 02/09/21 22:25 02/09/21 22:30 Temperature Pulse Rate 80 84 84 Respiratory Rate 16 17 18 Blood Pressure 105/54 L 99/50 L 102/52 L Pulse Oximetry 94 94 93 02/09/21 23:05 02/09/21 23:30 02/10/21 00:00 Temperature Pulse Rate 85 73 72 Respiratory Rate 14 17 Blood Pressure Pulse Oximetry 98 95 94 02/10/21 00:30 02/10/21 01:00 02/10/21 01:35 Temperature 97.3 F L Pulse Rate 72 76 73 Respiratory Rate 17 16 18 Blood Pressure 125/69 Pulse Oximetry 96 94 100 Oxygen Delivery Method Room Air Oxygen Flow Rate 0 Narrative Exam Narrative: Pleasant female lying in bed in no acute distress [facility] Other: NC/AT, PERRL, EOMI, Sclera anicteric, oropharyx clear, neck is supple, no adenopathy, thyromegaly, or palpable masses Chest Other: Bilateral mastectomies, scars clean dry without erythema or exudates Resp Other: Decreased breath sounds with occassional scattered crackles Cardio Other: RRR nl Sl S2, no murmurs, rubs, or gallops GI Other: Abdomen: soft/ non tender/ non distended No hepatosplenomegaly, multiple small hematomas for the lovenox injection sites slightly tender to palpation Skin Other: occassional bruising noted Neuro Other: non focal Extrem Other: no edema Psych Other: Normal appearance, mood is appropriate, normal thought processing, content, and judgement No hallucinations or delusions Objective Labs Result Diagrams: 02/09/21 21:50 02/09/21 21:50 Labs: Laboratory Results - last 24 hr 02/09/21 02/09/21 02/09/21 21:30 21:50 21:50 WBC 5.6 RBC 4.41 Hgb 13.0 Hct 38.4 MCV 87.1 MCH 29.5 MCHC 33.9 RDW 13.4 Plt Count 195 Neut % (Auto) 51.8 Lymph % (Auto) 33.9 [place] % (Auto) 9.1 Eos % (Auto) 4.4 H Baso % (Auto) 0.8 Neut # (Auto) 2900 Lymph # (Auto) 1900 [place] # (Auto) 500 Eos # (Auto) 200 Baso # (Auto) 0 D-Dimer Sodium 142 Potassium 4.2 Chloride 106 Carbon Dioxide 31 BUN 18 H Creatinine 0.90 Estimated GFR > 60.0 BUN/Creatinine Ratio 20.0 Glucose 78 Calcium 9.8 Total Bilirubin 0.3 AST 25 ALT 18 Alkaline Phosphatase 103 Total Creatine Kinase 35 CK-MB (CK-2) TNP CK-MB (CK-2) Rel Index TNP Troponin I < 0.012 Total Protein 7.1 Albumin 4.0 Globulin 3.1 Albumin/Globulin Ratio 1.3 Lipase 70 SARS-CoV-2 (PCR) Positive H 02/09/21 02/10/21 21:50 00:16 WBC RBC Hgb Hct MCV MCH MCHC RDW Plt Count Neut % (Auto) Lymph % (Auto) [place] % (Auto) Eos % (Auto) Baso % (Auto) Neut # (Auto) Lymph # (Auto) [place] # (Auto) Eos # (Auto) Baso # (Auto) D-Dimer 413 H Sodium Potassium Chloride Carbon Dioxide BUN Creatinine Estimated GFR BUN/Creatinine Ratio Glucose Calcium Total Bilirubin AST ALT Alkaline Phosphatase Total Creatine Kinase CK-MB (CK-2) CK-MB (CK-2) Rel Index Troponin I < 0.012 Total Protein Albumin Globulin Albumin/Globulin Ratio Lipase SARS-CoV-2 (PCR) Assessment & Plan Assessment & Plan narrative: 50 y/o female with multiple medical issues including asthma, bilateral mastectomies for breast cancer, history of PE/DVT on Lovenox, recent Covid-19 infection, prior NV in the setting of blood loss anemia following attempted removal of bryant filter here for evaluation of chest pain. 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 -doubt myocarditis, but a consideration -no evidence of pericarditis, despite small pericardial effusion -cardiac enzymes negative times three, EKG reveals no Acute ST T changes -CT angio reveals no PE, but bilateral bronchial wall thickening -will order nuclear medicine stress test today -will check echo to evaluate wall motions and pericadial area -continue Lovenox, start baby asa, await lipid studies -continue propanolol Asthma -appears chronic and somewhat progressive -continue albuterol inhaler, will start steroid inhaler -consider short burst of steroids if stress test negative History of Clotting Disorder/PE/DVT -continue enoxaparin 1mg/kg bid GERD -continue PPI Chronic Pain -continue tramadol and pregabalin Anxiety/Depression -continue propanolol -continue duloxetine Recent infection with Covid-19 -patient infected in October -currently not vaccinated as she is concerned about risks of blood clots given her clotting disorder -consider referral to for post-Covid clinic follow up -chest pain may be apart of long hauler syndrome, will r/o NV, evaluate LV function during this admission Patient reports her daughter is her surrogate decision maker, Jennifer Greene She would like to be a full code and will note that in her record Patient will be admitted under observation Patient is currently on therapeutic doses of enoxaparin, therefore dvt prophylaxis is not indicated I have utilized all available resources to update, review, and confirm current medications. COVID-19 COVID-19 status: Not tested (PCR results remain positive, although patient infected in October 2020, She is unvaccinated) Result date/Date tested (Pos, Neg/Pending): 02/10/21 Time Spent With Patient Critical Care time: I spent a total of [] minutes of critical care time on this patient's care today; this time is exclusive of procedural time.
[2021-02-10] MEDS: DEXTROSE 5%-0.9% NS 1,000 ML 100 ML IV (03:48)
[2021-02-10] MEDS: PANTOPRAZOLE DR 20 MG TABLET PO (05:51)
[2021-02-10 06:55] LABS: Cholesterol 187 mg/dL (140-199); HDL Cholesterol 53 mg/dL (40-60); LDL Cholesterol Calculated 106 mg/dL (<100); Triglycerides 138 mg/dL (35-150)
[2021-02-10 06:56] LABS: Add Manual Diff / Slide Review NO; Basophils Absolute Auto 0 /uL (0-100); Basophils Percent Auto 0.7 % (0-2); Eosinophils Absolute Auto 300 /uL (0-450); Eosinophils Percent Auto 5.3 % (2-4); Hematocrit 36.9 % (36-46); Hemoglobin 12.5 g/dL (12.0-16.0); Lymphocytes Absolute Auto 1900 /uL (1100-4500); Lymphocytes Percent Auto 40.2 % (25-40); Mean Corpuscular HGB Conc 33.9 % (30-36); Mean Corpuscular Hemoglobin 29.6 PG (26-34); Mean Corpuscular Volume 87.3 fL (80-100); Monocytes Absolute Auto 400 /uL (0-900); Monocytes Percent Auto 9.5 % (3-14); Neutrophils Absolute Auto 2100 /uL (1500-7000); Neutrophils Percent Auto 44.3 % (50-75); Platelet Count 156 X10^3/uL (150-400); Red Blood Cell Count 4.22 X10^6/uL (4.0-5.2); Red Cell Distribution Width 13.2 % (11.6-14.8); White Blood Cell Count 4.7 X10^3/uL (4.5-11.0)
[2021-02-10 06:58] LABS: BUN Creatinine Ratio 22.6 (6-22); Blood Urea Nitrogen 19 mg/dL (7-17); Carbon Dioxide 28 mmol/L (22-32); Chloride 108 mmol/L (98-107); Estimated Glomerular Filt Rate > 60.0 mL/min (>60); Glucose 98 mg/dL (70-100); HEMOLYSIS < 15 (0-50); Potassium 4.6 mmol/L (3.4-5.1); Sodium 141 mmol/L (137-145)
[2021-02-10 07:00] VITALS: BP 119/70; PULSE 67; RESP 18; TEMP 35.5; O2SAT 100
[2021-02-10 07:05] LABS: Troponin I < 0.012 ng/mL (0.01-0.034)
[2021-02-10] MEDS: DOCUSATE 100 MG CAPSULE PO (09:46)
[2021-02-10] MEDS: PREGABALIN 75 MG CAPSULE 150 MG PO (09:46)
[2021-02-10] MEDS: ENOXAPARIN 60 MG/0.6 ML SYRINGE 110 MG SUBCUT (09:46)
[2021-02-10] MEDS: DULOXETINE 30 MG CAPSULE PO (09:46)
[2021-02-10] MEDS: ASPIRIN EC 81 MG TABLET PO (09:46)
[2021-02-10] MEDS: FLUTICASONE 120 SPRAY/16 GM SPRAY.SUSP NASAL (09:47)
--- NOTE | 2021-02-10 10:24 | P.DS_ITS ---
History of Present Illness History of Present Illness Chief complaint: Chest Discomfort Narrative: Per Dr. Lutz: The patient is a 50 y/o female with a history of breast cancer s/p bilateral mastectomies, asthma, Covid-19 infection ( October 2020) unvaccinated Covid PCR still positive, history of clotting disorder, with history of PE/DVT on lovenox 100mg sq bid, depression who presents for evaluation of chest pain.? The patient reports she has had rapid heart rate associated with shortness of breath and chest tightness for several weeks to months. It will last 5 minutes then quickly resolved when she is seated. Yesterday she developed chest tightness that was severe 10/10 associated with shortness of breath, nausea, and diaphoresis. The pain lasted 2 hours.? Initially it went from 10/10 to 5/10 after medics gave her one nitro. Her chest discomfort completely resolved after the second nitro given in the Emergency Department. Patient was evaluated in the ED and EKG showed no acute STTwave abnormalities, she had 3 troponins all of which are negative. Her D-dimer was elevated [address] angio of the chest. CT angio revealed no pulmonary embolus, minimal left lung atelectasis, bilateral bro nchial wall thickening suggesting bronchitis, small pericardial effusion ( new), and mild confluent bilateral hilar adenopathy ? reactive vs. secondary to occult viral pneumonia.? Patient does report using her inhaler 3 times daily for her asthma over the last month. She has had no fever, chills, cough, lost of taste or smell. She had a mild headache secondary to the nitro. She is currently pain free. Her pain is not positional and occurs at rest and with activity. Her cardiac risk factors include a clotting disorder, positive family history, but no diabetes, hyperlipidemia, or hypertension. Patient is admitted to the hospital for further evaluation of chest pain. Discharge Providers Provider Date of admission: 02/10/21 00:44 Discharge Date: 02/10/21 Primary care physician: CHATO Hopper Discharge provider: Valentino Mcelroy MD Summary Hospital Course Discharge Diagnosis: 1. Chest pain 2. Asthma 3. History of clotting disorder with PE/DVT 4. GERD 5. Chronic pain 6. Depression/anxiety 7. COVID infection in 10/2020 Hospital Course: Ms. Tavarez was admitted with chest pain. She had negative troponins that were checked serially. She had no evidence of acute ischemia on EKG. She had CTA chest that showed no PE, possible small pericardial effusion. She was ordered for aspirin. Her symptoms resolved. She was feeling back to normal. She was planned to have ECHO and stress test done in the hospital. However, she already had these both scheduled as an outpatient and wanted to be discharged to follow up with these an outpatient. 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 She should follow up with her PCP. She was not discharged aspirin as she has is already on lovenox and has had serious b leeding in the past. Exam Vital Signs (past 8 hours): Oxygen Delivery Method Room Air Oxygen Flow Rate 0 Narrative Exam Narrative: GEN: No acute distress CV: regular rate and rhythm no murmurs PULM: clear bilaterally Objective Labs Result Diagrams: 02/10/21 06:15 02/10/21 06:15 [facility] Medical History Abnormal Pap smear of cervix Allergies Anemia Anterior to posterior tear of superior glenoid labrum of left shoulder Anxiety Asthma Blood clotting factor deficiency disorder Carpal tunnel syndrome Chronic streptococcal tonsillitis Depression with anxiety Ductal carcinoma in situ (DCIS) of breast Family history of blood clots History of renal failure Hx of hepatic failure Kidney stones Knee osteoarthritis Left hip pain Mass of left axilla Menopause Neck pain Paresthesia of right foot Presence of IVC filter Shortness of breath Upper extremity somatic dysfunction Surgical History H/O bilateral mastectomy H/O LEEP History of arthroscopy of left knee S/P insertion of IVC (inferior vena caval) filter Status post arthroscopic knee surgery Status post Status post cholecystectomy Status post mastectomy Status post tubal ligation Family History Father Stroke Hypertension Mother No significant medical problems Grandfather Hypertension Stroke Grandmother Breast cancer Social History marital status: unknown household members: significant other and friend(s) Smoking Status: Never smoker alcohol intake: current substance use type: does not use Discharge Plan Discharge Plan Patient Disposition: Home Provider Discharge Comment: Ms. Tavarez came in to the hospital with chest pain, shortness of breath, sweating. She had cardiac monitoring, EKG, and troponins which were negative for a heart attack. She had no pulmonary embolism. Her symptoms completely resolved. She was recommended and ordered for inpatient ECHO and stress test. She had them already scheduled for February, and declined to stay for inpatient and preferred to do these procedures as an outpatient. Discharge orders & Medications Prescriptions: Continued hydroxyzine pamoate 50 mg capsule See Rx Instructions .ROUTE .COMPLEX Qty: 90 RF: 3 pregabalin 150 mg capsule 150 mg PO BID Qty: 180 RF: 3 fluticasone propionate 50 mcg/actuation spray,suspension See Rx Instructions .ROUTE .COMPLEX Qty: 16 RF: 11 albuterol sulfate 90 mcg/actuation aerosol powdr breath activated 2 inh INHALATION Q4-6H PRN (Reason: Shortness Of Breath) Qty: 1 RF: 3 omeprazole 20 mg capsule,delayed release(DR/EC) 20 mg PO DAILY Qty: 90 RF: 3 clobetasol 0.05 % ointment 1 applic topical BID PRN (Reason: rash) 14 Days Qty: 30 RF: 1 Disabled Parking Permit See Rx Instructions .ROUTE .COMPLEX Qty: 1 RF: 0 tramadol 50 mg tablet 50 mg PO BID PRN (Reason: pain) 30 Days Qty: 30 RF: 0 diazepam 5 mg tablet 5 mg PO BID PRN (Reason: pre procedure sedation) Qty: 2 RF: 0 acetaminophen [Tylenol Extra Strength] 500 mg tablet 500 mg PO TID RF: 0 enoxaparin [Lovenox] 100 mg/mL syringe 100 mg SUBCUT Q12H RF: 0 propranolol 20 mg tablet 20 mg PO DAILY Qty: 90 RF: 3 duloxetine 30 mg capsule,delayed release(DR/EC) 30 mg PO BID RF: 0 Follow up/Referrals: Mary Ann Gaspar ARNP [Primary Care Provider] - Diet/Activity/Treatments Diet: Diet as Tolerated and Regular Visit Report/Discharge Packet Instructions: DI for Chest Pain, DI for COVID-19 (Suspected or Confirmed ) Discharge Data Primary Care Provider: Mary Ann Gaspar Attending Provider: Alethea Lutz [facility] The patient has current or prior documentation of left ventricular ejection fraction (LVEF) less than 40%, or moderate or severely depressed left ventricular systolic function.: No
[2021-02-10 13:12] LABS: Troponin I < 0.012 ng/mL (0.01-0.034)
--- NOTE | 2021-02-10 13:18 | PC.NURSE ---
Discharge instructions and home care handouts reviewed with patient, she states understanding and has no further questions or concerns at this time. IV dc'd intact, and home medications returned to patient. She is waiting for her boyfriend to pick her up at this time. Patient states she has a follow up appointment with her PCP as well as her tests scheduled outpatient. Instructed to seek care if symptoms return or worsen.
--- NOTE | 2021-02-10 13:19 | CM.DANOTE ---
DCP/Brief Assessment: Reviewed chart. Patient is a 50yr old female admitted to [facility] with chest pain. PCP listed is Mary Ann Gaspar. Primary payor is1)[place] 2)Medicaid. [employer] met briefly with RN to check on patient's status. RN reports that patient discharging home today withough any d/c planning needs. Patient currently COVID positive with precautions in place. P: Home today with no anticipated needs. K[facility] Discharge Planning/Care Management CM Discharge Assessment Start: 02/10/21 13:17 Freq: Status: Active Protocol: Document 02/10/21 13:18 KJS (Rec: 02/10/21 13:19 KJS [id number]) Discharge Planning Assessment Assigned Experimental Worker ENRIKE Chris DPOA/Assigned Designee Name Juan Antonio Hurley (friend) # [phone] Advance Directives? No History Provided By Medical Record Prior Living Arrangements House Household Members significant other,friend(s) Type of transporation used prior to Drives own vehicle admit Independent with ADL's Yes Is patient alert and oriented? Yes Barriers to Discharge No Discharge Plan Home Transportation Arrangement Family Referrals Initiated None needed Review Status In Process Next Review Type Continued Stay Review
--- NOTE | 2021-02-18 09:53 | PC.NURSE ---
Late Entry; Dextrose infusion stopped by MD discharge order 02/10 at 11:31.
== END 2021-02-10 13:48 | disposition home or self-care (01) ==
LOC: ED 02-10 00:36 → AC 02-10 00:45
PROVIDERS: Admitting Provider Internal Medicine; Emergency Provider Emergency Medicine; PCP Nurse Practitioner; Visit Provider Internal Medicine
DX: R07.9 Chest pain, unspecified (principal); R06.09 Other forms of dyspnea; U07.1 COVID-19; Z86.16 Personal history of COVID-19; D68.9 Coagulation defect, unspecified; Z95.828 Presence of other vascular implants and grafts; Z86.711 Personal history of pulmonary embolism; Z86.718 Personal history of other venous thrombosis and embolism; J45.909 Unspecified asthma, uncomplicated; F32.9 Major depressive disorder, single episode, unspecified; Z79.01 Long term (current) use of anticoagulants; K21.9 Gastro-esophageal reflux disease without esophagitis; F41.9 Anxiety disorder, unspecified; Z20.822 Contact with and (suspected) exposure to COVID-19
CPT/HCPCS: 36415; 71045; 71275; 80048; 80053; 80061; 82550; 83690; 84484; 85025; 85379; 87635; 93005; 93010; 96361; 96365; 96366; 99285; C9803; G0378; A9270; J1650; Q9967

== ENCOUNTER → 2021-02-24 11:55 | Outpatient (CLI) | payer OTHER, MEDICAID, SELFPAY ==
[2021-02-10 01:36] VITALS: BMI 39.6
[2021-02-24 13:41] LABS: COVID19 -Nasal RAPID Negative (Negative)
== END ==
PROVIDERS: PCP Nurse Practitioner; Visit Provider Nurse Practitioner Family
DX: Z20.822 Contact with and (suspected) exposure to COVID-19 (principal)
CPT/HCPCS: 87635; C9803

== ENCOUNTER → 2021-03-03 10:18 | Outpatient (CLI) | payer OTHER, MEDICAID, SELFPAY ==
[2021-02-10 01:36] VITALS: BMI 39.6
[2021-03-03 11:08] LABS: COVID19 -Nasal RAPID Negative (Negative)
== END ==
PROVIDERS: PCP Nurse Practitioner; Visit Provider Physician Assistant
DX: Z20.822 Contact with and (suspected) exposure to COVID-19 (principal)
CPT/HCPCS: 87635; C9803

== ENCOUNTER → 2021-03-04 09:00 | Outpatient (CLI) | payer OTHER, MEDICAID, SELFPAY ==
[2021-01-14 16:33] VITALS: BMI 35.0
[2021-02-10 01:36] VITALS: BMI 39.6
--- NOTE | 2021-03-09 18:14 | DI.NM.S_ITS ---
DATE OF SERVICE: PROCEDURE: Pharmacological perfusion study. DATE OF STUDY: March 05, 2021. INDICATIONS: Shortness of breath, chest pain, history of DVT, PE. RADIOPHARMACEUTICAL: 26.2 millicurie technetium-99m Myoview IV was injected at stress and 26.0 millicurie technetium-99m Myoview IV was injected at rest. It was a two day protocol study. CARDIAC STRESS: The patient underwent IV Lexiscan perfusion study under the supervision of an attending staff as per standard protocol. The patient remained hemodynamically stable. No anginal symptoms reported. Baseline EKG revealed sinus rhythm. During stress, some nonspecific ST changes. No significant arrhythmias. RAW DATA: There was breast shadow seen. GATED STUDY: Stress LV ejection fraction is 74 percent without any obvious wall motion abnormalities. Resting end-diastolic volume 103 mL. TID ratio 1.08, which is within normal limits. Lung/heart ratio 0.37, which is within normal limits. MYOCARDIAL PERFUSION SCAN: Stress supine, resting supine and stress prone images were compared to each other. Stress supine and resting supine images revealed small size, mildly decreased perfusion of apex which got resolved during prone images suggestive of breast tissue attenuation artifact. The stress prone images revealed normal myocardial perfusion. CONCLUSION: I will call this study a normal myocardial perfusion study with evidence of breast tissue attenuation artifact which got resolved during prone images. Preserved left ventricular function. No transient ischemic dilatation. Overall, this is a low-risk myocardial perfusion scan. Aggie Tavarez - AZAM/guero/estefani doc#: [id number]/job#: [id number] dd: 03/09/2021 17:31:00 dt: 03/09/2021 18:02:00 DICTATING MD/COPIES TO: Rolanda Liz MD COPIES MNE: ANIRUDH;
== END ==
PROVIDERS: PCP Nurse Practitioner; Referring Provider Nurse Practitioner; Visit Provider Nurse Practitioner
DX: Z01.818 Encounter for other preprocedural examination (principal); R42 Dizziness and giddiness; R06.02 Shortness of breath; R00.2 Palpitations; R07.9 Chest pain, unspecified; Z86.718 Personal history of other venous thrombosis and embolism; Z86.711 Personal history of pulmonary embolism
CPT/HCPCS: 78452; 93017; A9502; J2785

== ENCOUNTER → 2021-03-05 07:44 | Outpatient (CLI) | payer OTHER, MEDICAID, SELFPAY ==
[2021-02-10 01:36] VITALS: BMI 39.6
--- NOTE | 2021-03-05 07:44 | DI.ECHO.S_ITS ---
[facility]---------+ [facility] +---------+ : : [address] [place] : : : : [id number] : : : : Phone: [phone]+ Echocardiogram Report + + :Name: MIKE NELSON Study Date: 03/05/2021 Height: 65 in : :[facility] ReadingLocation: Weight: 211 lb : : Gender: Female BSA: 2.0 m2 : :: 1970 Age: 50 yrs BP: 109/81 mmHg: :Reason For Study: Pre op : : Performed By: Rikki Mendoza : :Referring: WILMER JOHNSON : + + Interpretation Summary Normal both left and right ventricle size and function. The ejection fraction is 55-60%. No valvular abnormality. Comparison is made with the echocardiogram of 02/08/2019, right ventricle size has decreased and pulmonary pressure has come down to normal. Procedure: A two-dimensional transthoracic echocardiogram with color flow and Doppler was performed. The study quality was technically adequate. Comparison is made with the echocardiogram of 02/08/2019. The patient was in normal sinus rhythm during the exam. Left Ventricle: The left ventricle is normal in size and wall thickness. The ejection fraction is estimated to be 55-60%. There are no obvious focal wall motion abnormalities noted but poor endocardial definition reduces the sensitivity for the detection of such. Right Ventricle: The right ventricle is normal in size and function. Atria: Both atria are normal in size. There is no Doppler evidence for an interatrial shunt. Mitral Valve: The mitral valve is normal. There is trace mitral regurgitation. Aortic Valve: The aortic valve is trileaflet. The aortic valve opens well. No aortic regurgitation is present. Tricuspid Valve: The tricuspid valve is normal. There is mild tricuspid regurgitation. Right ventricular systolic pressure is estimated to be 19 mmHg plus the clinically estimated CVP which cannot be estimated on this exam. Pulmonic Valve: The pulmonic valve is normal in structure and function. Great Vessels: The aortic root is normal size. The ascending aorta is normal in size. The aortic arch is normal in size. The inferior vena cava was not well visualized. Pericardium/ Pleura There is no pericardial effusion. There is an anterior echo-free space consistent with a fat pad. There is no pleural effusion. MMode/2D Measurements & Calculations LVIDd: 4.6 cm LVOT diam: 1.9 cm LVIDs: 3.5 cm Ao root diam: 3.0 cm FS: 23.9 % asc Aorta Diam: 3.0 cm IVSd: 0.71 cm Ao Arch Diam (distal): 2.6 cm LVPWd: 0.73 cm LV liz. diameter/BSA (cm/m^2): 2.3 LV sys. diameter/BSA (cm/m^2): 1.7 LA A2 area: 15.7 cm2 RA long axis: 5.4 cm LA A4 area: 14.9 cm2 RA area: 14.9 cm2 LA length (vol): 5.7 cm RA vol: 34.9 ml LA vol: 35.1 ml RA : 17.2 ml/m2 LA vol index: 17.4 ml/m2 RVD1 (basal): 4.1 cm TAPSE: 2.1 cm Doppler Measurements & Calculations Ao V2 max: 104.4 cm/sec LVOT Max Maulik: 79.4 cm/sec Ao V2 mean: 74.7 cm/sec LV V1 max P.5 mmHg Ao max P.4 mmHg LV V1 VTI: 15.6 cm Ao mean P.4 mmHg CORWIN(I,D): 2.2 cm2 Ao V2 VTI: 21.3 cm CORWIN(V,D): 2.3 cm2 sev ratio: 0.73 CORWIN indexed to BSA (cm^2/m^2): 1.1 MV E max maulik: 60.4 cm/sec TR max maulik: 219.6 cm/sec MV A max maulik: 76.0 cm/sec TR max P.3 mmHg MV E/A: 0.79 PA V2 max: 56.4 cm/sec Med Peak E' Maulik: 8.1 cm/sec PA V2 mean: 42.7 cm/sec E/E' med: 7.4 PA mean P.78 mmHg MV dec time: 0.21 sec PA pr(Accel): 22.5 mmHg SV(LVOT): 46.5 ml Electronically signed by: Madyson Watts on Reading Physician:03/05/2021 05:04 PM
== END ==
PROVIDERS: PCP Nurse Practitioner; Referring Provider Nurse Practitioner; Visit Provider Nurse Practitioner
DX: I07.1 Rheumatic tricuspid insufficiency (principal); Z01.818 Encounter for other preprocedural examination
CPT/HCPCS: 93306

== ENCOUNTER → 2021-03-09 07:35 | Outpatient (CLI) | payer OTHER, MEDICAID, SELFPAY ==
[2021-02-10 01:36] VITALS: BMI 39.6
--- NOTE | 2021-03-09 07:45 | DI.MRI.S_ITS ---
PROCEDURE: MR KNEE LT WO CON INDICATIONS: Left knee pain worsening over 3 years TECHNIQUE: Noncontrast sagittal PD fast spin echo and T2 fast spin echo with fat saturation, sagittal 3-D FLASH with fat saturation; coronal T1 spin echo and PD fast spin echo with fat saturation, and axial PD fast spin echo with fat saturation through the knee. COMPARISON: [facility], MR, KNEE WITHOUT CONTRAST, 12/16/2011, 16:57. FINDINGS: Menisci: Medial meniscus: Absent appearance of the anterior horn and body suggestive of prior partial meniscectomy. There is mild frayed appearance of the posterior horn, without discrete tear Lateral meniscus: Intact. Cruciate ligaments: Anterior cruciate ligament: Not well seen with amorphous signal changes in the expected location. This likely represents chronic high-grade partial rupture. Posterior cruciate ligament: Intact. Medial structures: The medial collateral ligament: Intact. Semimembranosus tendon: Mild insertional tendinopathy. Visualized pes anserinus tendons: Intact. Bursal fluid: none. Lateral structures: The lateral collateral ligament demonstrates thickening and intrasubstance signal change in keeping with low grade sprain, statistically chronic, although technically age indeterminate. Biceps femoris tendon appears intact. Popliteus tendon grossly unremarkable. Iliotibial band appears intact. Anterior structures: Quadriceps tendon: Intact. Medial patellofemoral ligament: Intact. Lateral patellofemoral ligament: Intact. Patellar tendon: Minimal tendinopathy. Anterior soft tissues: Prepatellar and superficial infrapatellar subcutaneous edema/fluid. Deep infrapatellar region: Normal. Bones and cartilage: Marrow: No focal marrow contusion or discrete low signal fracture line. Medial compartment: Full-thickness femoral and tibial articular cartilage loss. Lateral compartment: Diffuse partial-thickness loss of the femoral cartilage. There is surface fraying of the central weight-bearing tibial cartilage. Patellofemoral compartment: Diffuse partial-thickness loss of the patellar and femoral trochlear cartilage. Joint space: Effusion: No pathologic knee joint effusion. Popliteal fossa: No Mcdaniel's cyst. Loose bodies: None. IMPRESSION: Absent appearance of the anterior horn and body of the medial meniscus suggestive of postsurgical changes since 12/16/11. Degenerated appearance of the posterior horn without discrete tear by strict MR criteria. 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 This also appears new since the remote prior study. 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 This appears progressed since the prior study. Dictated by: Travis Pisano M.D. on 03/09/2021 at 10:37 Approved by: Travis Pisano M.D. on 03/09/2021 at 11:16
== END ==
PROVIDERS: PCP Nurse Practitioner; Referring Provider Nurse Practitioner; Visit Provider Nurse Practitioner
DX: M17.12 Unilateral primary osteoarthritis, left knee (principal); M25.562 Pain in left knee
CPT/HCPCS: 73721

== ENCOUNTER → 2021-03-15 13:28 | Outpatient (CLI) | payer OTHER, MEDICAID, SELFPAY ==
--- NOTE | 2021-03-15 13:29 | DI.US.S_ITS ---
PROCEDURE: US PERIPH VENOUS LOW EXTREM BI INDICATIONS: PAIN TECHNIQUE: Real-time imaging, as well as color and pulse Doppler interrogation, were performed of the deep veins of both legs from the inguinal ligament to the popliteal fossa. COMPARISON: None. FINDINGS: Right: The common femoral, femoral and popliteal veins are normally compressible, and free of intraluminal thrombus. Color and pulse Doppler demonstrate normal phasic intravascular flow. There is normal augmentation response to distal compression maneuver. Left: The common femoral, femoral and popliteal veins are normally compressible, and free of intraluminal thrombus. Color and pulse Doppler demonstrate normal phasic intravascular flow. There is normal augmentation response to distal compression maneuver. IMPRESSION: Negative for deep venous thrombosis. Dictated by: Jacinto Lomeli M.D. on 03/15/2021 at 13:33 Approved by: Jacinto Lomeli M.D. on 03/15/2021 at 13:33
== END ==
PROVIDERS: PCP Nurse Practitioner; Referring Provider Nurse Practitioner; Visit Provider Nurse Practitioner
DX: M79.604 Pain in right leg (principal); M79.605 Pain in left leg; D68.4 Acquired coagulation factor deficiency; Z95.828 Presence of other vascular implants and grafts
CPT/HCPCS: 93970

== ENCOUNTER → 2021-03-17 14:07 | Outpatient (CLI) | payer OTHER, MEDICAID, SELFPAY ==
--- NOTE | 2021-03-17 14:08 | DI.RAD.S_ITS ---
PROCEDURE: XR PELVIS 1-2V INDICATIONS: right groin pain - where IVC filter is placed. TECHNIQUE: Single view(s) of the pelvis acquired. COMPARISON: None. FINDINGS: Bones: Right acetabular cortical sideplate and screws in appropriate position without evidence of hardware failure or loosening. Aorto bi-iliac stent graft noted. No acute fractures. Soft tissues: Visualized bowel gas pattern is normal. No suspicious soft tissue calcifications. IMPRESSION: 1. Right pelvic orthopedic instrumentation and aorto bi-iliac stent graft both in good position. 2. No acute fracture or intrinsic osseous lesion. Approved by: Jose M Shepard M.D. on 03/17/2021 at 14:32
== END ==
PROVIDERS: PCP Nurse Practitioner; Referring Provider Nurse Practitioner; Visit Provider Nurse Practitioner
DX: R10.31 Right lower quadrant pain (principal); Z95.828 Presence of other vascular implants and grafts
CPT/HCPCS: 72170

== ENCOUNTER → 2021-07-15 09:29 | Outpatient (CLI) | payer OTHER, MEDICAID, SELFPAY ==
--- NOTE | 2021-07-15 09:30 | DI.US.S_ITS ---
PROCEDURE: US PELVIC COMPLETE INDICATIONS: HISTORY OVARIAN CYSTS. Postmenopausal female TECHNIQUE: Real-time scanning was performed of the pelvic organs, with image documentation. Additional endovaginal scanning was necessary due to incomplete visualization of the adnexal and endometrial structures by transabdominal scanning. COMPARISON: [facility], US, US PELVIC COMPLETE, 10/22/2019, 9:52. FINDINGS: Uterus: Uterus is normal in size at 5.4 x 3.9 x 4.2 cm. The myometrium is homogeneous. The endometrium measures 4.8 mm combined thickness. Ovaries: The right ovary measures 3.9 x 2.9 x 4.2 cm, and contains multiple cysts, the largest of which is 2.6 x 2.2 x 2.8 cm. The left ovary measures 2.0 x 1.5 x 2.7 cm. There is a left paraovarian cyst measuring 0.8 cm. There is also a cyst in the left ovary measuring 1.9 x 1.7 x 1.8 cm. No adnexal masses are seen. Other: No pathologic free abdominal or pelvic fluid. IMPRESSION: There are bilateral ovarian cysts, the largest of which measures 2.8 cm in maximum diameter, on the right. Comment: In postmenopausal females, with cysts of the above size, yearly pelvic ultrasound is recommended to evaluate any changes in size. We strive to produce accurate, complete, and clear reports of imaging services. To assist us in improving patient care, this report was composed using standard report templates and voice recognition software. Therefore, it may contain abnormal punctuation, insertions and/or omissions. Occasional wrong-word or sound-alike substitutions may occur. Though we review the report and make efforts to correct it, we do recommend that the report be read carefully in proper context to recognize any text inaccuracies. Dictated by: Raudel Curran M.D. on 07/15/2021 at 12:05 Approved by: Raudel Curran M.D. on 07/15/2021 at 12:11
== END ==
PROVIDERS: PCP Nurse Practitioner; Referring Provider Obstetrics & Gynecology; Visit Provider Obstetrics & Gynecology
DX: N83.202 Unspecified ovarian cyst, left side (principal); N83.201 Unspecified ovarian cyst, right side; Z78.0 Asymptomatic menopausal state; Z87.42 Personal history of other diseases of the female genital tract
CPT/HCPCS: 76830; 76856

== ENCOUNTER → 2021-07-29 12:34 | Outpatient (CLI) | payer OTHER, MEDICAID, SELFPAY ==
--- NOTE | 2021-07-29 12:37 | DI.RAD.S_ITS ---
PROCEDURE: XR SHOULDER RT MIN 2V INDICATIONS: right shoulder pain, fall TECHNIQUE: 3 views of the shoulder were acquired. COMPARISON: [facility], CR, XR SHOULDER LT MIN 2V, 10/11/2019, 15:46. FINDINGS: Bones: No fractures or dislocations. No suspicious bony lesions. Moderate joint space loss with mild osteophytosis of the acromioclavicular joint. Visualized ribs appear intact. Soft tissues: No suspicious soft tissue calcifications. IMPRESSION: AC joint degeneration as detailed above. Dictated by: Wilberto Monge M.D. on 07/29/2021 at 13:10 Approved by: Wilberto Monge M.D. on 07/29/2021 at 13:11
== END ==
PROVIDERS: PCP Nurse Practitioner; Referring Provider Nurse Practitioner; Visit Provider Nurse Practitioner
DX: M25.511 Pain in right shoulder (principal); M19.011 Primary osteoarthritis, right shoulder
CPT/HCPCS: 73030

== ENCOUNTER 2021-08-23 14:42 | Emergency (ER) | payer OTHER, MEDICAID, SELFPAY ==
[2021-08-23 14:44] VITALS: PULSE 81; RESP 18; TEMP 36.3; O2SAT 98
[2021-08-23 14:46] VITALS: BP 95/65
[2021-08-23 15:07] LABS: Add Manual Diff / Slide Review NO; Basophils Absolute Auto 0 /uL (0-100); Basophils Percent Auto 0.9 % (0-2); Eosinophils Absolute Auto 300 /uL (0-450); Eosinophils Percent Auto 6.1 % (2-4); Hematocrit 40.4 % (36-46); Hemoglobin 13.9 g/dL (12.0-16.0); Lymphocytes Absolute Auto 1400 /uL (1100-4500); Lymphocytes Percent Auto 32.2 % (25-40); Mean Corpuscular HGB Conc 34.5 % (30-36); Mean Corpuscular Hemoglobin 30.3 PG (26-34); Monocytes Absolute Auto 400 /uL (0-900); Monocytes Percent Auto 8.1 % (3-14); Neutrophils Absolute Auto 2300 /uL (1500-7000); Neutrophils Percent Auto 52.7 % (50-75); Platelet Count 197 X10^3/uL (150-400); Red Cell Distribution Width 13.3 % (11.6-14.8); White Blood Cell Count 4.5 X10^3/uL (4.5-11.0)
[2021-08-23 15:16] LABS: Alanine Aminotransferase 21 IU/L (<35); Albumin 4.4 g/dL (3.5-5.0); Albumin Globulin Ratio 1.3 (1.0-2.8); Alkaline Phosphatase 99 U/L (38-126); Aspartate Aminotransferase 22 IU/L (14-36); BUN Creatinine Ratio 20.8 (6-22); Bilirubin Total 0.5 mg/dL (0.2-1.3); Blood Urea Nitrogen 21 mg/dL (7-17); Carbon Dioxide 30 mmol/L (22-32); Chloride 106 mmol/L (98-107); Estimated Glomerular Filt Rate > 60 mL/min (>60); Globulin 3.4 g/dL (1.7-4.1); Glucose 95 mg/dL (70-100); HEMOLYSIS < 15 (0-50); Lipase 77 U/L (23-300); Potassium 4.6 mmol/L (3.4-5.1); Sodium 143 mmol/L (137-145); Total Protein 7.8 g/dL (6.3-8.2)
[2021-08-23 15:50] LABS: RBC Urine 0-1/HPF (0-5/HPF)
[2021-08-23 15:51] LABS: Amorphous Sediment Urine 1+; Bacteria Urine Occasional (0-1); Culture Indicated Urine Specimen Cultured; Mucus Urine 1+ (Negative); Squamous Epithelial Cell Urine 0-1 /HPF (0-5/HPF); WBC Urine 5-10/HPF (0-5/HPF)
[2021-08-23 16:14] LABS: Ictotest Urine Negative (Negative)
[2021-08-23 17:57] VITALS: BP 124/82; PULSE 91; RESP 16; O2SAT 96
--- NOTE | 2021-08-23 18:56 | ED.ABDPAIN ---
HPI - Abdominal Pain General Chief Complaint: Abdominal Pain Stated Complaint: Lower right abd/back pain Time Seen by Provider: 08/23/21 18:08 Source: patient Mode of arrival: Ambulatory History of Present Illness HPI narrative: 50-year-old female nonsmoker with history of clotting disorder, IVC filter, kidney stones presents with a chief complaint of right lower quadrant pain with radiation to the back over the past week or so. She states she thinks it might have, on rather quickly at that time and proceeded to radiate to her back. For the 1st few days she had some low-grade fever which seems to have broken. At times she admits to provocation with motion and improvement with rest, however at others she has a colicky nature to her pain. She denies any ongoing fever. She has had a poor appetite and has not had anything to eat since yesterday. She has had significant nausea but denies any vomiting. She denies dysuria, frequency or urgency. She states she is usually quite regular with her bowel movements but has had decreased bowel movements for the past day or 2. Related Data Home Medications Medication Instructions Recorded Confirmed acetaminophen 500 mg tablet 500 mg PO TID tab 02/19/19 08/10/21 (Tylenol Extra Strength) Previous Rx's Medication Instructions Recorded Disabled Parking Permit See Rx Instructions .ROUTE 10/19/20 .COMPLEX #1 unit cholecalciferol (vitamin D3) 50 50 mcg PO BID #180 cap 02/17/21 mcg (2,000 unit) capsule albuterol sulfate 90 mcg/actuation 2 inh INHALATION Q4-6H PRN #1 ea 08/10/21 breath activated powder inhaler alprazolam 0.25 mg tablet 0.25 mg PO BID PRN #2 tab 08/10/21 clobetasol 0.05 % topical ointment 1 applic TOPICAL BID PRN 14 Days 08/10/21 #30 g duloxetine 60 mg capsule,delayed 60 mg PO BID #180 cap 08/10/21 release enoxaparin 100 mg/mL subcutaneous 100 mg SUBCUT Q12H #180 ml 08/10/21 syringe (Lovenox) fluticasone propionate 50 See Rx Instructions .ROUTE 08/10/21 mcg/actuation nasal .COMPLEX #16 gram spray,suspension hydroxyzine pamoate 50 mg capsule See Rx Instructions .ROUTE 08/10/21 .COMPLEX #90 cap mometasone-formoterol HFA 200 2 puff INHALATION Q12H #13 g 08/10/21 mcg-5 mcg/actuation aerosol inhaler (Dulera) omeprazole 20 mg capsule,delayed See Rx Instructions .ROUTE 08/10/21 release .COMPLEX #90 cap pregabalin 150 mg capsule 150 mg PO BID #180 cap 08/10/21 propranolol 20 mg tablet See Rx Instructions .ROUTE 08/10/21 .COMPLEX #90 tab tramadol 50 mg tablet 50 mg PO BID PRN 30 Days #45 tab 08/10/21 azithromycin 250 mg tablet See Rx Instructions PO .COMPLEX #6 08/12/21 (Zithromax) tab Allergies Allergy/AdvReac Type Severity Reaction Status Date / Time levofloxacin [From Levaquin] AdvReac Severe Anxiety, Verified 08/10/21 14:21 heartburn, insomnia Penicillins AdvReac Severe Very high Verified 08/10/21 14:21 fever - had to be placed in an ice bath Review of Systems Review of Systems Narrative: GENERAL: Denies chills, fatigue, malaise, fever, sweats. HEENT: Denies sinus pain, ear pain, sore throat, difficulty swallowing, dizziness. RESPIRATORY: Denies dyspnea, cough, wheezing, hemoptysis, sputum. CARDIOVASCULAR: Denies chest pain, palpitations, orthopnea, edema, GASTROINTESTINAL: see HPI : See HPI MUSCULOSKELETAL: denies weakness, joint pain, or bony pain SKIN: Denies rash, skin lesions, or other NEUROLOGIC: Denies weakness, headache, numbness, change in speech, confusion, seizures, incoordination. PSYCHIATRIC: No concerning psychosocial issues. 12 point review of systems is negative except for those stated above Patient History Medical History Abnormal Pap smear of cervix ACL (anterior cruciate ligament) rupture Acute pericardial effusion Allergies Anemia Anterior to posterior tear of superior glenoid labrum of left shoulder Anxiety Asthma Bilateral leg pain Blood clot of left ear Blood clotting factor deficiency disorder Carpal tunnel syndrome Chest pain Chronic streptococcal tonsillitis COVID-19 in immunocompromised patient COVID-19 long hauler manifesting chronic fatigue Depression with anxiety Ductal carcinoma in situ (DCIS) of breast Family history of blood clots History of renal failure Hx of hepatic failure Kidney stones Knee osteoarthritis Left hip pain Mass of left axilla Menopause Neck pain Paresthesia of right foot Persistent shortness of breath after COVID-19 Presence of IVC filter Raynaud disease Shortness of breath Tonsillitis, chronic Upper extremity somatic dysfunction Surgical History H/O bilateral mastectomy H/O LEEP History of arthroscopy of left knee S/P insertion of IVC (inferior vena caval) filter Status post arthroscopic knee surgery Status post Status post cholecystectomy Status post mastectomy Status post tubal ligation Family History Father Stroke Hypertension Mother No significant medical problems Grandfather Hypertension Stroke Grandmother Breast cancer Social History marital status: unknown household members: significant other and friend(s) Smoking Status: Never smoker alcohol intake: current substance use type: does not use Smoking Status: Never smoker alcohol intake frequency: holidays/special occasions only Substance Use Type: does not use Exam Narrative Exam Narrative: GENERAL: 50 year old patient appears stated age. Well-developed patient, in mild distress. HEAD: Atraumatic. Normocephalic. EYES: Pupils equal round and reactive. Extraocular motions intact. No scleral icterus. No injection or drainage. ENT: Nose without bleeding, purulent drainage. Throat without erythema, tonsillar hypertrophy or exudate. Airway patent. NECK: Trachea midline. Non tender CARDIOVASCULAR: Regular rate and rhythm without murmurs, gallops, or rubs. RESPIRATORY: Clear to auscultation. Breath sounds equal bilaterally. No wheezes, rales, or rhonchi. GASTROINTESTINAL: Abdomen soft, RLQ pain on palp, nondistended. EXTREMITIES: No edema or joint tenderness. BACK: Nontender without deformity or crepitance. No flank tenderness. NEURO: AOx3. SKIN: No rash or erythema of visible areas Initial Vital Signs Initial Vital Signs: Vital Signs Temperature 97.4 F L 08/23/21 14:44 Pulse Rate 81 08/23/21 14:44 Respiratory Rate 18 08/23/21 14:44 Pulse Oximetry 98 08/23/21 14:44 Course Orders Ordered: ED Orders 08/23/21 19:03 CT abdomen pelvis w con Stat Discontinued Medications Ondansetron HCl (Ondansetron 4 Mg/2 Ml Inj) 4 mg IV NOW ONE Stop: 08/23/21 19:04 Last Admin: 08/23/21 19:10 Dose: 4 mg Documented by: NATALIYA Vital Signs Vital signs: Vital Signs - 8 hr 08/23/21 20:39 Pulse Rate 84 Blood Pressure 136/87 Pulse Oximetry 97 MDM - Abdominal Pain Lab Data Result diagrams: 08/23/21 14:55 08/23/21 14:55 Labs: Lab Results 08/23/21 08/23/21 08/23/21 Range/Units 14:55 14:55 15:10 WBC 4.5 (4.5-11.0) X10^3/uL RBC 4.60 (4.0-5.2) X10^6/uL Hgb 13.9 (12.0-16.0) g/dL Hct 40.4 (36-46) % MCV 88.0 (80-100) fL MCH 30.3 (26-34) PG MCHC 34.5 (30-36) % RDW 13.3 (11.6-14.8) % Plt Count 197 (150-400) X10^3/uL Neut % (Auto) 52.7 (50-75) % Lymph % (Auto) 32.2 (25-40) % [place] % (Auto) 8.1 (3-14) % Eos % (Auto) 6.1 H (2-4) % Baso % (Auto) 0.9 (0-2) % Neut # (Auto) 2300 (6129-5721) /uL Lymph # (Auto) 1400 (9165-2176) /uL [place] # (Auto) 400 (0-900) /uL Eos # (Auto) 300 (0-450) /uL Baso # (Auto) 0 (0-100) /uL Sodium 143 (137-145) mmol/L Potassium 4.6 (3.4-5.1) mmol/L Chloride 106 (98-107) mmol/L Carbon Dioxide 30 (22-32) mmol/L BUN 21 H (7-17) mg/dL Creatinine 1.01 (0.52-1.04) mg/dL Estimated GFR > 60 (>60) mL/min BUN/Creatinine Ratio 20.8 (6-22) Glucose 95 (70-100) mg/dL Calcium 10.0 (8.4-10.2) mg/dL Total Bilirubin 0.5 (0.2-1.3) mg/dL AST 22 (14-36) IU/L ALT 21 (<35) IU/L Alkaline Phosphatase 99 (38-126) U/L Total Protein 7.8 (6.3-8.2) g/dL Albumin 4.4 (3.5-5.0) g/dL Globulin 3.4 (1.7-4.1) g/dL Albumin/Globulin Ratio 1.3 (1.0-2.8) Lipase 77 (23-300) U/L Ur Bilirubin Confirm (Negative) Urine RBC 0-1/hpf (0-5/HPF) Urine WBC 5-10/hpf H (0-5/HPF) Ur Squamous Epith Cells 0-1 /hpf (0-5/HPF) Amorphous Sediment 1+ Urine Bacteria Occasional (0-1) D (None) Urine Mucus 1+ H (Negative) Ur Culture Indicated? Specimen cultured 08/23/21 Range/Units 15:10 WBC (4.5-11.0) X10^3/uL RBC (4.0-5.2) X10^6/uL Hgb (12.0-16.0) g/dL Hct (36-46) % MCV (80-100) fL MCH (26-34) PG MCHC (30-36) % RDW (11.6-14.8) % Plt Count (150-400) X10^3/uL Neut % (Auto) (50-75) % Lymph % (Auto) (25-40) % [place] % (Auto) (3-14) % Eos % (Auto) (2-4) % Baso % (Auto) (0-2) % Neut # (Auto) (9663-3551) /uL Lymph # (Auto) (9686-5164) /uL [place] # (Auto) (0-900) /uL Eos # (Auto) (0-450) /uL Baso # (Auto) (0-100) /uL Sodium (137-145) mmol/L Potassium (3.4-5.1) mmol/L Chloride (98-107) mmol/L Carbon Dioxide (22-32) mmol/L BUN (7-17) mg/dL Creatinine (0.52-1.04) mg/dL Estimated GFR (>60) mL/min BUN/Creatinine Ratio (6-22) Glucose (70-100) mg/dL Calcium (8.4-10.2) mg/dL Total Bilirubin (0.2-1.3) mg/dL AST (14-36) IU/L ALT (<35) IU/L Alkaline Phosphatase (38-126) U/L Total Protein (6.3-8.2) g/dL Albumin (3.5-5.0) g/dL Globulin (1.7-4.1) g/dL Albumin/Globulin Ratio (1.0-2.8) Lipase (23-300) U/L Ur Bilirubin Confirm Negative (Negative) Urine RBC (0-5/HPF) Urine WBC (0-5/HPF) Ur Squamous Epith Cells (0-5/HPF) Amorphous Sediment Urine Bacteria (None) Urine Mucus (Negative) Ur Culture Indicated? Point of care testing: Point of Care Testing Test Results Negative Urine Dip Bedside Urine Glucose Negative Bedside Urine Bilirubin + 1 Bedside Urine Ketone - Negative Urine Specific [place] 1.015 Bedside Urine Occult Blood - Negative Bedside Urine pH 7.0 Bedside Urine Protein - Negative Bedside Urine Urobilinogen 0.2 Bedside Urine Nitrite - Negative Bedside Urine Leukocytes + [address] scan - abdomen/pelvis: Radiologist's Impression: Aggie Tavarez??50??F??1970 ? Allergy/Adv: levofloxacin, Penicillins (More??) Close Abdomen/Pelvis CT (Signed) Raudel Curran - 08/23/21 Shoulder X-Ray (Signed) Wilberto Monge - 07/29/21 Pelvis Ultrasound (Signed) Raudel Curran - 07/15/21 Pelvis X-Ray (Signed) Jose M Shepard - 03/17/21 Vascular Ultrasound (Signed) Jacinto Lomeli - 03/15/21 Radiology Report (Cancelled) Rolanda Liz - 03/09/21 Myocardial Perfusion Scan Nuc Med (Signed) Rolanda Liz - 03/09/21 Knee MRI (Signed) Travis Pisano - 03/09/21 Echocardiogram Ultrasound (Signed) Madyson Small - 03/05/21 Echocardiogram Ultrasound (Cancelled) 03/05/21 Telemetry Strips 02/10/21 Chest CTA (Signed) Karyn Bennett - 02/09/21 Chest X-Ray (Signed) Karyn Bennett - 02/09/21 Lower Extremity Ultrasound (Signed) Edilson Steward - 10/05/20 Axilla US (Signed) Servando Fenton - 10/05/20 Barium Swallow X-Ray (Signed) Adriana Lee - 06/10/20 Vascular Ultrasound (Signed) Wilfrid Lewis - 06/09/20 Breast MRI (Signed) [place]is - 06/01/20 Axilla US (Signed) Kurtis Deras - 06/01/20 Hip X-Ray (Signed) Darwin Dimas - 04/21/20 MRI Orbit/Face/Neck/IAC (Signed) Jacinto Lomeli - 12/02/19 Shoulder MRI (Signed) Gregor Monaco - 10/30/19 Injection for MRI Arthrogram (Signed) Darwin Dimas - 10/30/19 Shoulder X-Ray (Signed) Jacinto Lomeli - 10/11/19 Vascular Ultrasound (Signed) Karyn Bennett - 09/20/19 Axilla US (Signed) Ami Alvarez - 08/23/19 Radiology - Historical 05/23/19 Mammogram Diagnostic (Signed) Darwin Dimas - 05/08/19 Breast Biopsy Ultrasound (Signed) Darwin Dimas - 05/08/19 Breast Axilla Core Biopsy US (Signed) Darwin Dimas - 05/08/19 [place] [address] CT Scan Report Signed Patient: Aggie Tavarez MR#: [id number] : 1970 Acct:[id number] Age/Sex: 50 / F Date of Service: 08/23/21 Loc: ED Accession Number: [id number] ?? Procedure: CT abdomen pelvis w con Ordering Provider: Mick Muse D.O. PROCEDURE:? CT ABDOMEN PELVIS W CON ? INDICATIONS:? severe RLQ pain, nausea, fever ? TECHNIQUE:? After the administration of intravenous contrast, axial sections acquired from the lung bases to the pubic symphysis.? Coronal and sagittal reformats were performed.? For radiation dose reduction, the following was used:? automated exposure control, adjustment of mA and/or kV according to patient size.? ? COMPARISON:? [facility], CT, CT ABDOMEN PELVIS WITH CONTRAST, 12/09/2019, 15:13.? [facility], [place], PET NECK TO MID THIGH, 10/20/2020, 8:57.? [facility], CT, CT ABDOMEN PELVIS W CON, 08/28/2018, 16:39. ? FINDINGS:? Image quality:? Excellent.? ? Lung bases:? Unremarkable. Heart:? No significant findings. ? Right mastectomy is noted. ? ABDOMEN: Liver:? Unremarkable.? ? Gallbladder:? Surgically absent? ? Biliary ducts:? Unremarkable.? ? Pancreas:? Unremarkable.? ? Spleen:? Unremarkable.? ? Adrenal Glands:? Unremarkable.? ? Kidneys and Ureters:? Unremarkable.? ? ? Stomach and Bowel:? Mild diverticulosis without evidence of diverticulitis.? Moderately large fecal debris..? A normal appendix is identified. Peritoneum:? No abnormal intraperitoneal fluid.? No free air.? ? Ventral Wall: ? No hernias.? Extensive findings in the anterior subcutaneous tissues likely represent previous injection sites.? This is a chronic finding.? Abdominal Nodes:? No retroperitoneal or mesenteric adenopathy by size criteria.? Vessels:? Aorta and inferior vena cava are normal in size.? There has been stent graft reconstruction of the entirety of the inferior vena cava and the bilateral common iliac veins.? This was present on the previous PET-CT.? Subjacent to the reconstructed inferior vena cava is a large retroperitoneal fluid collection, which is chronic, and measures 8.7 x 4.2 x 7.5 cm.? This is not increased from the previous study.? ? PELVIS: Pelvic Organs:? Unremarkable.? ? Bladder:? Unremarkable.? ? Pelvic Nodes: No enlarged lymph nodes.? Miscellaneous: No hernias are seen. ? ? ? Bones:? Lumbar degenerative change.? No lytic or blastic bony lesions.? No compression fractures. ? ? IMPRESSION:? ? 1. Remote reconstruction of inferior vena cava and bilateral common iliac veins. ? 2. Chronic fluid collection subjacent to the inferior vena cava, consistent with chronic seroma or hematoma.? This does not have the appearance of an infected collection, as it is chronic compared to the PET-CT.? There is no air within it.? ? 3. Remote right mastectomy. ? 4. Normal appendix. ? 5. Moderately large fecal debris. ? 6. No evidence of acute abdominal process.? ? Dictated by: Raudel Curran M.D. on 08/23/2021 at 20:02 ? ? Approved by: Raudel Curran M.D. on 08/23/2021 at 20:10 ? MDM Narrative Medical decision making narrative: Multiple etiologies for patient's symptoms considered including: [Kidney stone versus bowel obstruction versus other Patient's symptoms improved over duration of stay with above-stated therapies. Findings and discharge diagnosis discussed with patient/family followed by verbalization of understanding Return precautions discussed with patient/family whom verbalize understanding. Discharge Plan Departure Patient Disposition: Home Clinical Impression: Abdominal pain Instructions: DI for Abdominal Pain-Adult Activity Restrictions/Additional Instructions: *You have been diagnosed with [abdominal and flank pain. As we discussed your labs and CT scan are very reassuring and there is no evidence of kidney stone, bowel obstruction, large infection, bleeding or other significant diagnosis which would require admission to the hospital, surgery or other immediate intervention. *What to do: *Please continue to take your regular medications as directed. [ ] New medication prescriptions sent to your pharmacy: [ ] [ ] New medication written as a paper prescription [x ] No new medications given *Please follow up with your primary care provider in 2-3 days, call for an appointment. Let them know you were seen in the Emergency Department and that we ask that you be seen in follow up. We will electronically transmit a record of today's note if your PCP is in our system *If you do not have a primary care provider please contact the [facility] Resource line at [phone]. They will ask some questions about your medical history and help get you set up with a doctor in the community. *Return to Emergency Department if you should have any new, worsening or concerning symptoms, such as [fever greater than 101 F, shaking chills, worsening pain, persistent vomiting or other bothersome symptoms] Prescriptions: No Action azithromycin [Zithromax] 250 mg tablet See Rx Instructions PO .COMPLEX Qty: 6 0RF Rx Instructions: take 500 mg today (day 1), then 250 mg for 4 days (days 2-5) PO Disabled Parking Permit See Rx Instructions .ROUTE .COMPLEX Qty: 1 0RF Rx Instructions: I find this patient to be medically disabled and qualify for disabled parking as indicated and signed on the accompanying disabled parking application for individuals. alprazolam 0.25 mg tablet 0.25 mg PO BID PRN (Reason: procedural sedation) Qty: 2 0RF Rx Instructions: Take 1 tab 30 mins prior to procedure, may repeat in 30 minutes albuterol sulfate 90 mcg/actuation aerosol powdr breath activated 2 inh INHALATION Q4-6H PRN (Reason: Shortness Of Breath) Qty: 1 3RF Rx Instructions: 2 inhalations by mouth every 4-6 hours as needed clobetasol 0.05 % ointment 1 applic topical BID PRN (Reason: rash) 14 Days Qty: 30 1RF Rx Instructions: Apply a pea sized quantity to affected area twice daily for rash. duloxetine 60 mg capsule,delayed release(DR/EC) 60 mg PO BID Qty: 180 3RF enoxaparin [Lovenox] 100 mg/mL syringe 100 mg SUBCUT Q12H Qty: 180 3RF fluticasone propionate 50 mcg/actuation spray,suspension See Rx Instructions .ROUTE .COMPLEX Qty: 16 11RF Dose Instruction: Use 1 spray(s) in each nostril once daily Rx Instructions: Use 1 spray(s) in each nostril once daily hydroxyzine pamoate 50 mg capsule See Rx Instructions .ROUTE .COMPLEX Qty: 90 0RF Dose Instruction: TAKE 1 CAPSULE BY MOUTH UP TO 4 TIMES DAILY FOR ANXIETY (YOU MAY ALSO USE FOR INSOMNIA) Rx Instructions: TAKE 1 CAPSULE BY MOUTH UP TO 4 TIMES DAILY FOR ANXIETY (YOU MAY ALSO USE FOR INSOMNIA) Dulera 200-5 mcg/actuation HFA aerosol inhaler 2 puff inhalation Q12H Qty: 13 3RF omeprazole 20 mg capsule,delayed release(DR/EC) See Rx Instructions .ROUTE .COMPLEX Qty: 90 3RF Dose Instruction: TAKE 1 CAPSULE BY MOUTH ONCE DAILY FOR EPIGASTRIC DISCOMFORT. Rx Instructions: TAKE 1 CAPSULE BY MOUTH ONCE DAILY FOR EPIGASTRIC DISCOMFORT. pregabalin 150 mg capsule 150 mg PO BID Qty: 180 3RF propranolol 20 mg tablet See Rx Instructions .ROUTE .COMPLEX Qty: 90 3RF Dose Instruction: TAKE 1 TABLET BY MOUTH ONCE DAILY FOR HEART RATE AND ANXIETY, MAY REPEAT ONE TIME FOR PANIC ATTACK. Rx Instructions: TAKE 1 TABLET BY MOUTH ONCE DAILY FOR HEART RATE AND ANXIETY, MAY REPEAT ONE TIME FOR PANIC ATTACK. tramadol 50 mg tablet 50 mg PO BID PRN (Reason: pain) 30 Days Qty: 45 4RF Rx Instructions: Take 1 tab up to twice per day as needed for pain acetaminophen [Tylenol Extra Strength] 500 mg tablet 500 mg PO TID 0RF cholecalciferol (vitamin D3) 50 mcg (2,000 unit) capsule 50 mcg PO BID Qty: 180 3RF Referrals: Mary Ann Gaspar ARNP [Primary Care Provider] -
--- NOTE | 2021-08-23 19:03 | DI.CT.S_ITS ---
PROCEDURE: CT ABDOMEN PELVIS W CON INDICATIONS: severe RLQ pain, nausea, fever TECHNIQUE: After the administration of intravenous contrast, axial sections acquired from the lung bases to the pubic symphysis. Coronal and sagittal reformats were performed. For radiation dose reduction, the following was used: automated exposure control, adjustment of mA and/or kV according to patient size. COMPARISON: [facility], CT, CT ABDOMEN PELVIS WITH CONTRAST, 12/09/2019, 15:13. [facility], [place], PET NECK TO MID THIGH, 10/20/2020, 8:57. [facility], CT, CT ABDOMEN PELVIS W CON, 08/28/2018, 16:39. FINDINGS: Image quality: Excellent. Lung bases: Unremarkable. Heart: No significant findings. Right mastectomy is noted. ABDOMEN: Liver: Unremarkable. Gallbladder: Surgically absent Biliary ducts: Unremarkable. Pancreas: Unremarkable. Spleen: Unremarkable. Adrenal Glands: Unremarkable. Kidneys and Ureters: Unremarkable. Stomach and Bowel: Mild diverticulosis without evidence of diverticulitis. Moderately large fecal debris.. A normal appendix is identified. Peritoneum: No abnormal intraperitoneal fluid. No free air. Ventral Wall: No hernias. Extensive findings in the anterior subcutaneous tissues likely represent previous injection sites. This is a chronic finding. Abdominal Nodes: No retroperitoneal or mesenteric adenopathy by size criteria. Vessels: Aorta and inferior vena cava are normal in size. There has been stent graft reconstruction of the entirety of the inferior vena cava and the bilateral common iliac veins. This was present on the previous PET-CT. Subjacent to the reconstructed inferior vena cava is a large retroperitoneal fluid collection, which is chronic, and measures 8.7 x 4.2 x 7.5 cm. This is not increased from the previous study. PELVIS: Pelvic Organs: Unremarkable. Bladder: Unremarkable. Pelvic Nodes: No enlarged lymph nodes. Miscellaneous: No hernias are seen. Bones: Lumbar degenerative change. No lytic or blastic bony lesions. No compression fractures. IMPRESSION: 1. Remote reconstruction of inferior vena cava and bilateral common iliac veins. 2. Chronic fluid collection subjacent to the inferior vena cava, consistent with chronic seroma or hematoma. This does not have the appearance of an infected collection, as it is chronic compared to the PET-CT. There is no air within it. 3. Remote right mastectomy. 4. Normal appendix. 5. Moderately large fecal debris. 6. No evidence of acute abdominal process. Dictated by: Raudel Curran M.D. on 08/23/2021 at 20:02 Approved by: Raudel Curran M.D. on 08/23/2021 at 20:10
[2021-08-23] MEDS: ONDANSETRON 4 MG/2 ML INJ IV (19:10)
[2021-08-23 20:39] VITALS: BP 136/87; PULSE 84; O2SAT 97
== END 2021-08-23 20:40 | disposition home or self-care (01) ==
PROVIDERS: Emergency Medicine; Emergency Provider Emergency Medicine; PCP Nurse Practitioner
DX: R10.31 Right lower quadrant pain (principal)
CPT/HCPCS: 36415; 74177; 80053; 81003; 81015; 81025; 83690; 85025; 87086; 96374; 99284; J2405; Q9967

== ENCOUNTER 2024-07-12 15:52 | Emergency (ER) | payer MEDICARE, OTHER, SELFPAY ==
[2024-07-12 15:55] VITALS: BP 119/72; PULSE 99; RESP 20; TEMP 37; O2SAT 100; BMI 37.3
--- NOTE | 2024-07-12 16:02 | DI.US.S_ITS ---
PROCEDURE: US [facility] VENOUS LOW EXTREM LT INDICATIONS: PURPLE/EDEMATOUS FOOT. HISTORY OF BLOOD CLOT. USES ELIQUIS. TECHNIQUE: Real-time imaging, as well as color and pulse Doppler interrogation, were performed of the lower extremity deep veins from the inguinal ligament to the popliteal fossa, with documentation of the visualized calf veins. COMPARISON: [facility], [facility] VENOUS LOW EXTREM LT, 02/06/2019, 17:55. FINDINGS: The common femoral, femoral, popliteal, and the visualized calf veins are normally compressible, and free of intraluminal thrombus. Color and pulse Doppler demonstrate normal phasic intraluminal flow. There is normal augmentation response to distal compression maneuver. IMPRESSION: No findings of lower extremity deep venous thrombosis. Dictated by: Hamlet Nieves M.D. on 07/12/2024 at 17:15 Approved by: Hamlet Nieves M.D. on 07/12/2024 at 17:15
--- NOTE | 2024-07-12 17:26 | ED.EXTPRO ---
HPI - Extremity Problem <Janee Rai PA-C - Last Filed: 07/12/24 19:23> General Chief complaint: Extremity Problem,Nontraumatic Stated complaint: blood clotting issues, thinks clot in leg Time Seen by Provider: 07/12/24 17:24 Source: patient Mode of arrival: Ambulatory History of Present Illness HPI Narrative: Ms. Julien Tavarez is a very pleasant 53-year-old female with a past medical history of multiple VTE, factor 5 Leiden on Eliquis, IVC filter in place, breast cancer in remission, bilateral knee osteoarthritis who presents to emergency department for left knee pain and swelling/purple left foot. Patient states she flew here from [place] 1 week ago and has been having developing left foot swelling, color change, and posterior left knee pain. She is concerned for a blood clot which prompted her emergency department arrival. Reports that when she elevates the leg it is not swollen or purple but when she is standing walking or sitting the left foot becomes discolored. She has severe pain behind the left knee. She denies chest pain, shortness of breath, redness, fevers. Related Data Home Medications Medication Instructions Recorded Confirmed acetaminophen 500 mg tablet 500 mg PO TID 02/19/19 12/21/21 (Tylenol Extra Strength) Previous Rx's Medication Instructions Recorded Disabled Parking Permit See Rx Instructions .Route 10/19/20 .COMPLEX #1 unit cholecalciferol (vitamin D3) 50 50 mcg PO BID #180 caps 02/17/21 mcg (2,000 unit) capsule clobetasol 0.05 % topical ointment 1 applic topical BID PRN rash 2 08/10/21 weeks #30 grams fluticasone propionate 50 See Rx Instructions .Route 08/10/21 mcg/actuation nasal .COMPLEX #16 grams spray,suspension azithromycin 250 mg tablet See Rx Instructions PO .COMPLEX #6 08/12/21 (Zithromax) tabs lidocaine 5 % topical patch 2 patch topical DAILY #60 ea 08/31/21 alprazolam 0.25 mg tablet 0.25 mg PO BID PRN procedural 12/21/21 sedation #2 tabs duloxetine 60 mg capsule,delayed 60 mg PO BID #180 caps 12/21/21 release enoxaparin 100 mg/mL subcutaneous 100 mg SUBCUT Q12H #180 mL 12/21/21 syringe (Lovenox) mometasone-formoterol HFA 200 2 puff inhalation Q12H #13 grams 12/21/21 mcg-5 mcg/actuation aerosol inhaler (Dulera) omeprazole 20 mg capsule,delayed See Rx Instructions .Route 12/21/21 release .COMPLEX #90 caps pregabalin 150 mg capsule 150 mg PO BID #180 caps 12/21/21 propranolol 20 mg tablet See Rx Instructions .Route 12/21/21 .COMPLEX #90 tabs tramadol 50 mg tablet 50 mg PO BID PRN pain 30 days #45 12/21/21 tabs hydroxyzine pamoate 50 mg capsule See Rx Instructions .Route 04/21/22 .COMPLEX #90 caps albuterol sulfate 90 mcg/actuation See Rx Instructions .Route 09/16/22 aerosol inhaler .COMPLEX #8.5 grams Allergies Allergy/AdvReac Type Severity Reaction Status Date / Time levofloxacin [From Levaquin] AdvReac Severe Anxiety, Verified 08/31/21 14:32 heartburn, insomnia Penicillins AdvReac Severe Very high Verified 08/31/21 14:32 fever - had to be placed in an ice bath Review of Systems <Janee Rai PA-C - Last Filed: 07/12/24 19:23> Review of Systems ROS Unobtainable: All systems reviewed & are unremarkable except as noted in HPI and below Patient History <Janee Rai PA-C - Last Filed: 07/12/24 19:23> Medical History Tonsillitis, chronic Raynaud disease ACL (anterior cruciate ligament) rupture Bilateral leg pain COVID-19 in immunocompromised patient Persistent shortness of breath after COVID-19 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 fatigue Acute pericardial effusion Chest pain Mass of left axilla Blood clot of left ear 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 Hx of hepatic failure History of renal failure Ductal carcinoma in situ (DCIS) of breast Left hip pain Allergies Presence of IVC filter Paresthesia of right foot Shortness of breath Anxiety Anterior to posterior tear of superior glenoid labrum of left shoulder Menopause Upper extremity somatic dysfunction Neck pain Depression with anxiety Anemia Family history of blood clots Carpal tunnel syndrome Abnormal Pap smear of cervix Kidney stones Knee osteoarthritis Asthma Surgical History Status post mastectomy H/O bilateral mastectomy S/P insertion of IVC (inferior vena caval) filter History of arthroscopy of left knee H/O LEEP Status post cholecystectomy Status post arthroscopic knee surgery Status post tubal ligation Status post Family History Father Stroke Hypertension Mother No significant medical problems Grandfather Hypertension Stroke Grandmother Breast cancer Social History marital status: unknown household members: significant other and friend(s) Smoking Status: Never smoker alcohol intake: current substance use type: does not use Smoking Status: Never smoker alcohol intake frequency: holidays/special occasions only Exam <Janee Rai PA-C - Last Filed: 07/12/24 19:23> Narrative Exam Narrative: GENERAL: 53 year old patient appears stated age. Obese patient, in no acute distress. HEAD: Atraumatic. Normocephalic. CARDIOVASCULAR: Regular rate and rhythm. RESPIRATORY: ?Nonlabored respirations. ?Speaking in clear, full sentences. EXTREMITIES: Bilateral lower extremity nonpitting edema. Tenderness to palpation of posterior left knee. Subjective pain with flexion and extension of left knee but full ROM intact. No overlying skin changes. She is strong palpable DP and PT pulses on right lower extremity but very soft pulses on left lower extremity. Left PT and DP pulses were detected with the Doppler. She is slowed capillary refill on left toes, approximately 4 seconds compared to brisk on right toes. No color change of lower extremity present. NEURO: AOx3. ?Clear speech. ?Moves all 4 extremities appropriately. SKIN: No rash or erythema of visible areas Initial Vital Signs Initial Vital Signs: Vital Signs Temperature 98.6 F 07/12/24 15:55 Pulse Rate 99 H 07/12/24 15:55 Respiratory Rate 20 07/12/24 15:55 Blood Pressure 119/72 07/12/24 15:55 Pulse Oximetry 100 07/12/24 15:55 Oxygen Delivery Method Room Air 07/12/24 15:55 <Andrei Guzmán MD - Last Filed: 07/12/24 21:04> Initial Vital Signs Initial Vital Signs: Vital Signs Temperature 98.6 F 07/12/24 15:55 Pulse Rate 99 H 07/12/24 15:55 Respiratory Rate 20 07/12/24 15:55 Blood Pressure 119/72 07/12/24 15:55 Pulse Oximetry 100 07/12/24 15:55 Oxygen Delivery Method Room Air 07/12/24 15:55 Course <Janee Rai PA-C - Last Filed: 07/12/24 19:23> Orders Ordered: ED Orders 07/12/24 16:02 US periph venous low extrem lt Stat Discontinued Medications Tramadol HCl (Tramadol 50 Mg Tablet) 50 mg PO NOW ONE Stop: 07/12/24 18:42 Last Admin: 07/12/24 19:09 Dose: 50 mg Documented By: ROJAS Vital Signs Vital signs: Vital Signs - 8 hr 07/12/24 15:55 07/12/24 17:30 07/12/24 19:20 Temperature 98.6 F 97.6 F Pulse Rate 99 H 85 80 Respiratory Rate 20 18 18 Blood Pressure 119/72 120/74 Pulse Oximetry 100 97 97 Oxygen Delivery Method Room Air Room Air <Andrei Guzmán MD - Last Filed: 07/12/24 21:04> Orders Ordered: ED Orders 07/12/24 16:02 periph venous low extrem lt Stat Discontinued Medications Tramadol HCl (Tramadol 50 Mg Tablet) 50 mg PO NOW ONE Stop: 07/12/24 18:42 Last Admin: 07/12/24 19:09 Dose: 50 mg Documented By: ROJAS Vital Signs Vital signs: Vital Signs - 8 hr 07/12/24 15:55 07/12/24 17:30 07/12/24 19:20 Temperature 98.6 F 97.6 F Pulse Rate 99 H 85 80 Respiratory Rate 20 18 18 Blood Pressure 119/72 120/74 Pulse Oximetry 100 97 97 Oxygen Delivery Method Room Air Room Air MDM - Extremity (Nontraumatic) <Janee Rai PA-C - Last Filed: 07/12/24 19:23> Medical Records Attestation: I reviewed the patient's medical records. Imaging Data LLE US: Radiologist's Impression: PROCEDURE: US PERIPH VENOUS LOW EXTREM LT INDICATIONS: PURPLE/EDEMATOUS FOOT. HISTORY OF BLOOD CLOT. USES ELIQUIS. TECHNIQUE: Real-time imaging, as well as color and pulse Doppler interrogation, were performed of the lower extremity deep veins from the inguinal ligament to the popliteal fossa, with documentation of the visualized calf veins. COMPARISON: [facility], , [facility] VENOUS LOW EXTREM LT, 02/06/2019, 17:55. FINDINGS: The common femoral, femoral, popliteal, and the visualized calf veins are normally compressible, and free of intraluminal thrombus. Color and pulse Doppler demonstrate normal phasic intraluminal flow. There is normal augmentation response to distal compression maneuver. IMPRESSION: No findings of lower extremity deep venous thrombosis. MDM Narrative Medical decision making narrative: 53-year-old female with a past medical history of multiple VTE, factor 5 Leiden on Eliquis, IVC filter in place, breast cancer in remission, bilateral knee osteoarthritis who presents to emergency department for left knee pain and swelling/purple left foot. Differential diagnosis includes but is not limited to DVT, peripheral venous disease, peripheral arterial disease, dependent edema, etc. On exam the patient is in no acute distress, nontoxic appearing, vital signs appropriate. Physical exam reveals tenderness to palpation of the left popliteal fossa. Patient has some discoloration/dependent edema of left foot that resolves with elevation of the foot. Lower extremities are neurovascularly intact however she does have diminished pulses of the left foot however they are detectable. Left lower extremity venous ultrasound was obtained in triage and reveals no DVT. Patient feels very reassured by this and is not interested in x-ray of the knee as she reports she knows she needs her knee replaced. Given her dependent color change and edema and soft pulses, I do suspect peripheral vascular disease of the left lower extremity and advised she follow up with the vascular surgeon. At this time there is no indication for emergent vascular surgery intervention. Recommended rice therapy, compression socks, frequent ambulation on her plane ride home. She was given home dose of tramadol in the ED for pain. We discussed strict ED return precautions. The patient verbalized understanding of all information is agreeable to plan. Discharge Plan Departure Patient Disposition: Home Clinical Impression: Peripheral vascular disease of lower extremity Knee pain, left Qualifiers: Chronicity: acute Qualified Code(s): M25.562 - Pain in left knee Instructions: DI for Peripheral Vascular (Arterial) Disease Activity Restrictions/Additional Instructions: Thank you for coming to the emergency department. Today an ultrasound of your left leg was obtained which reveal no blood clot in the left leg. The blood flow in your left leg is not as good as the right leg, and it is very important that you follow up with a vascular surgeon once you are home for further evaluation. Please rest, elevate the left lower extremity, and wear compression socks. On your flight home it is very important for you to get up and walk around frequently. Please return to the emergency department if you develop any new or worsening symptoms or other concerns. Please follow up with your primary care doctor within the next 2-3 days for ER follow-up. (If you do not have a PCP you can call [phone]. ?to schedule an appointment with an [facility] Primary Care Provider) IF YOU DEVELOP ANY NEW OR WORSENING SYMPTOMS, RETURN TO THE ER! Please read the attached instructions, they highlight more specific treatments and interventions for you at home. Thank you for letting me participate in your care, Janee Rai PA-C Prescriptions: No Action azithromycin [Zithromax] 250 mg tablet See Rx Instructions PO .COMPLEX Qty: 6 0RF Rx Instructions: take 500 mg today (day 1), then 250 mg for 4 days (days 2-5) PO hydroxyzine pamoate 50 mg capsule See Rx Instructions .ROUTE .COMPLEX Qty: 90 11RF Dose Instruction: take 1 capsule by mouth four times a day for anxiety (MAY ALSO USE FOR INSOMNIA) Rx Instructions: take 1 capsule by mouth four times a day for anxiety (MAY ALSO USE FOR INSOMNIA) albuterol sulfate 90 mcg/actuation HFA aerosol inhaler See Rx Instructions .ROUTE .COMPLEX Qty: 8.5 11RF Dose Instruction: inhale 2 puffs by mouth and INTO THE LUNGS every 4 to 6 hours if needed for shortness of breath Rx Instructions: inhale 2 puffs by mouth and INTO THE LUNGS every 4 to 6 hours if needed for shortness of breath Disabled Parking Permit See Rx Instructions .ROUTE .COMPLEX Qty: 1 0RF Rx Instructions: I find this patient to be medically disabled and qualify for disabled parking as indicated and signed on the accompanying disabled parking application for individuals. clobetasol 0.05 % ointment 1 applic topical BID PRN (Reason: rash) 14 Days Qty: 30 1RF Rx Instructions: Apply a pea sized quantity to affected area twice daily for rash. fluticasone propionate 50 mcg/actuation spray,suspension See Rx Instructions .ROUTE .COMPLEX Qty: 16 11RF Dose Instruction: Use 1 spray(s) in each nostril once daily Rx Instructions: Use 1 spray(s) in each nostril once daily alprazolam 0.25 mg tablet 0.25 mg PO BID PRN (Reason: procedural sedation) Qty: 2 0RF Rx Instructions: Take 1 tab 30 mins prior to procedure, may repeat in 30 minutes duloxetine 60 mg capsule,delayed release(DR/EC) 60 mg PO BID Qty: 180 3RF enoxaparin [Lovenox] 100 mg/mL syringe 100 mg SUBCUT Q12H Qty: 180 3RF Dulera 200-5 mcg/actuation HFA aerosol inhaler 2 puff inhalation Q12H Qty: 13 3RF pregabalin 150 mg capsule 150 mg PO BID Qty: 180 3RF omeprazole 20 mg capsule,delayed release(DR/EC) See Rx Instructions .ROUTE .COMPLEX Qty: 90 3RF Dose Instruction: TAKE 1 CAPSULE BY MOUTH ONCE DAILY FOR EPIGASTRIC DISCOMFORT. Rx Instructions: TAKE 1 CAPSULE BY MOUTH ONCE DAILY FOR EPIGASTRIC DISCOMFORT. propranolol 20 mg tablet See Rx Instructions .ROUTE .COMPLEX Qty: 90 3RF Dose Instruction: TAKE 1 TABLET BY MOUTH ONCE DAILY FOR HEART RATE AND ANXIETY, MAY REPEAT ONE TIME FOR PANIC ATTACK. Rx Instructions: TAKE 1 TABLET BY MOUTH ONCE DAILY FOR HEART RATE AND ANXIETY, MAY REPEAT ONE TIME FOR PANIC ATTACK. tramadol 50 mg tablet 50 mg PO BID PRN (Reason: pain) 30 Days Qty: 45 4RF Rx Instructions: Take 1 tab up to twice per day as needed for pain acetaminophen [Tylenol Extra Strength] 500 mg tablet 500 mg PO TID cholecalciferol (vitamin D3) 50 mcg (2,000 unit) capsule 50 mcg PO BID Qty: 180 3RF lidocaine 5 % adhesive patch,medicated 2 patch topical DAILY Qty: 60 1RF Rx Instructions: leave on most painful area for up to 12 hrs Referrals: Miscellaneous,Doctor, [Primary Care Provider] - Stand Alone Forms: Patient Portal/API/Survey ED Sign-out <Andrei Guzmán MD - Last Filed: 07/12/24 21:04> Cosign ED Attending Peggyature Attestation: I was immediately available in the department for consultation. This documentation has been reviewed and I agree with assessment and plan. Supervised by Andrei Guzmán MD
[2024-07-12 17:30] VITALS: BP 120/74; PULSE 85; RESP 18; O2SAT 97
[2024-07-12] MEDS: TRAMADOL 50 MG TABLET PO (19:09)
[2024-07-12 19:20] VITALS: PULSE 80; RESP 18; TEMP 36.4; O2SAT 97
--- NOTE | 2024-07-12 20:26 | PC.NURSE ---
1730: LLE unable to palpate dorsalis pedis or posterior tibial pulses. Pain behind knee, numb/tingling from knee to toes. Extremity cold, toenail alternating pale to purple. LLE and foot alternating pale white to dark purple, increasingly purple when extremity is dependent sitting or standing especially; color improves when extremity elevated, patient reports relief only with elevating extremity especially above heart but that it remains cool/numb/tingling with increased cap refill and unable to palpate pulses. 1835: Left Posterior Tibial Pulse dopplerable; Left Dorsalis Pedis Pulse Dopplerable with extremity elevated legs in recliner chair and knee slightly bent/knee not locked. Capillary refill remains 5-7 seconds. Extremity cool and pink/purple. Patient reports numb/heavy/tingling to LLE from knees to toes but pain behind left knee especially with pressure\palpation or movement
== END 2024-07-12 19:20 | disposition home or self-care (01) ==
PROVIDERS: Emergency Provider Physician Assistant
DX: I73.9 Peripheral vascular disease, unspecified (principal); M25.562 Pain in left knee
CPT/HCPCS: 93971; 99283